=== PATIENT | female | born 1940 | race Caucasian/White ===

== ENCOUNTER → 2016-11-09 | Day surgery (SDC) | payer OTHER, BC ==
[~2016-11-09] VITALS: Ht 162.6 cm; Wt 75.0 kg
[~2016-11-09] MED LIST: ADVIN10050 INH; ALBUAER2 INH; AMOX500C3 PO; ANAS1TAB19 PO; ASPI81TA21 PO; B-COTAB81 PO; CEFAZOLIN 1000MG/55 ML D5W IV SCH; D5W AND 1/4NSS 1,000 ML IV SCH; DILT-119 PO; FENTANYL CITRATE INJ 50 MCG/1 ML 2 ML VIAL IV ONE; FENTANYL CITRATE INJ 50 MCG/1 ML 2 ML VIAL ONE; FSM70 PO; GLUC1TAB22 PO; GLUC1TAB33 PO; LANT1000 PO; LEVO75TA PO; LIDOCAINE HCL 1% 20 ML VIAL INJ ONE; MIDAZOLAM HCL 1 MG/ML 2ML VIAL ONE; MRLP17X PO; OPTIRAY 300 IV ONE; PRLSR20 PO; SERT25TA PO; SEVE800T7 PO; SIMV20TA2 PO; TYLOTC500 PO; occuvite PO
--- NOTE | 2016-11-09 07:55 | History and Physical ---
History & Physical Date of Service Nov 09, 2016. History & Physical CC: Chronic renal failure, malfunctioning lue avf HPI: Patient has had a left upper arm fistula placed. It ran poorly. Admitted now for fistulogram possible intervention. PATIENT'S ALLERGIES INCLUDE TORADOL. Patient's home medications are reconciled in the chart and include the following ; aspirin 325 mg, Centrum Silver, diltiazem, ferrous sulfate, Fosamax, glucosamine, levothyroxine, MS Contin, omeprazole, oxybutynin, Pred Forte, PreserVision, Procrit, Renvela, sertraline, Tylenol, and Zocor. Patient's past medical history is positive for breast cancer, chronic depression , gastroesophageal reflux disease, hip pain with multiple left hip surgeries, including hip replacement, hypertension, hyperlipidemia, and thyroid disease. Patient's past surgical history is positive for hip replacement on the left side , as well as revision of that procedure and a left breast lumpectomy, partial colon resection. Patient's family history is positive for breast cancer in her sister, colon cancer in her father, and hypertension in her mother. Her social history is negative for tobacco, alcohol or drug use. Her review of systems is negative for fatigue, fevers, sweats, weight loss or exercise intolerance, abnormal moles or rashes. Denies photophobia, ear pain, sinus problems or sore throats, cough, shortness of breath, hemoptysis or wheezing, chest pain, palpitations, edema, or syncope, abdominal pain, nausea, vomiting, diarrhea or constipation, back pain or muscle weakness, headaches, dizziness, numbness or seizures. On physical exam, patient's vital signs today are as follows; a blood pressure of 118/68 with a heart rate of 60 and a respiratory rate of 16. Patient weighs 153 pounds. Constitutional: In general, patient is a mostly healthy-appearing, well-nourished, well-developed elderly female in no acute distress. Patient ambulates well without assistance. She is active, alert and oriented x4 with normal memory. Her head is normocephalic and atraumatic. Her eyes are EOMI. Her ENT exam demonstrates no hearing loss, rhinorrhea, or pharyngeal erythema. Her neck is supple, nontender, with midline trachea, without masses or crepitus. Her lung exam demonstrates no dyspnea. Breath sounds are slightly decreased throughout, however, they are clear to auscultation bilaterally. Cardiovascular exam demonstrates a nondisplaced apical impulse with a regular rate and rhythm without murmurs, rubs or gallops. Her peripheral pulses are full and equal in all extremities. Specifically, they are normal in her carotid , brachial, radial, femoral, posterior tibial, and dorsalis pedis pulses. Patient demonstrates no bruits in her carotid, abdominal or femoral area. Her abdomen is soft and nontender with normoactive bowel sounds in all 4 quadrants without guarding or rebound. There is no CVA or flank tenderness. Her musculoskeletal exam demonstrates normal tone and strength for age. Her bilateral upper extremities demonstrate no cyanosis, edema, varicosities or ulcers. There is a thrill and bruit in the debora fistula. Current bilateral lower extremities demonstrate minimal varicosities, but no significant edema, cyanosis or ulcers. Neurologically, patient has normal gait and station with briskly intact cranial nerves and grossly intact sensation. Imp: End stage renal disease Malfunctioning avf Plan: Patient is admitted for a fistulogram with possible intervention. She understands the risks options and benefits and agrees to the procedure.
[2016-11-09 12:46] VITALS: BP 116/59; PULSE 56; TEMP 36.7; O2SAT 96; Ht 162.6 cm; Wt 75.0 kg
--- NOTE | 2016-11-09 12:54 | History & Physical Bridge Note ---
H&P Re-Evaluation Bridge Note: I have examined the patient, reviewed the History & Physical and in the interval since the performance of the History & Physical I have noted the following changes of clinical significance: No changes noted
--- NOTE | 2016-11-09 12:54 | Procedure Note ---
Pre-Mod Sedation Assessment General Date of Moderate Sedation: Nov 09, 2016. Pre-Sedation Airway Assessment Smoking Status: Never Smoker Mallampati Classification: Class I ASA Classification: Class II Notes The planned sedation has been discussed with the patient and consent obtained. I have identified the patient, determined the appropriateness of sedation and have assessed the patient immediately prior to the procedure. All medicine(s) and interventions are by my order.
[2016-11-09 13:51] VITALS: BP 116/59; PULSE 56; TEMP 36.7; O2SAT 96
--- NOTE | 2016-11-09 14:50 | [facility] Post Operative Brief Note ---
Immediate Operative Summary Operative Date Nov 09, 2016. Pre-Operative Diagnosis malfunctioning fistula Post-Operative Diagnosis same Procedure(s) Performed Left Upper Extremity Fistulogram, Percutaneous Transluminal Angioplasty and Stenting Of Venous, Peripheral Surgeon Dr. Shannon Deer Farmer Surgeon(s) Dr. Jeffery Estimated Blood Loss 5 ml Findings no residual stenosis Specimens none Anesthesia Local Complication(s) None Disposition
--- NOTE | 2016-11-09 14:52 | Discharge Instructions ---
Discharge Instructions Date of Service Nov 09, 2016. Visit Reason for Visit: End Stage Renal Disease -On Hemodialysis Discharge Discharge Diagnosis / Problem: Malfunctioning arteriovenous fistula Discharge Goals Goal(s): Diagnostic testing, Therapeutic intervention Activity Recommendations Activity Limitations: per Instructions/Follow-up section Anesthesia . Post Anesthesia Instructions: If you have had General Anesthesia or IV Sedation: * Do not drive today. * Resume driving when surgeon permits. * Do not make important decisions or sign legal documents today. * Call surgeon for: 1. Temperature elevations greater than 101 degrees F. 2. Uncontrollable pain. 3. Excessive bleeding. 4. Persistent nausea and vomiting. 5. Medication intolerance (nausea, vomiting or rash). * For nausea and vomiting use only clear liquids such as: tea, soda, bouillon until nausea subsides, then gradually increase diet as tolerated. * If you have any concerns or questions, call your surgeon's office. If physician is unavailable and it is an emergency, call 911 or go to the nearest emergency room. . Instructions / Follow-Up Instructions / Follow-Up Call [phone] with any questions or concerns. SPECIAL CARE INSTRUCTIONS: Medications: * Continue to take your medications as directed. If you have been given a prescription for Plavix, please fill it immediately and take as directed. Incision Care: * Your puncture site may have some bruising and minor swelling for about one week. * You will have a small dressing covering your puncture site. You may remove the dressing after 24 hours and shower. You may let the warm soapy water run over it, but be sure to dry the puncture site well and keep it dry. * DO NOT IMMERSE THE INCISION IN A TUB/POOL/etc. UNTIL HEALED. * Puncture sites should be kept covered with a band-aid until it begins to heal. Restrictions: * Depending on whether you leg or arm was punctured to access the arteries, you will be required to lay flat, hold your arm still, or both, for about 4 hours after the procedure to prevent bleeding. * Limit your activity for the first 48 hours. You may walk and go up and down steps. Avoid excessive bending or movement at the puncture site. Possible Complications: * Excessive Swelling - after blood flow is improved you may notice increased swelling in the lower legs. This is a normal response. This usually depends on the amount of blockages in the leg, how long they have been there prior to your procedure and how much blood flow was restored. Elevating your legs will help to improve this. Please notify our office ([phone] ) if the swelling does not go away after lying in bed overnight. * Infection/Drainage/Bleeding - Drainage or bleeding from the puncture site should be minimal. If you have excessive bleeding or drainage, call our office ([phone]) right away. * Pain - You may experience some mild pain or soreness at your puncture site. If your pain does not improve, please contact our office ([phone]). Call your doctor and seek emergent treatment if you develop: * Temperature above 101 degrees * Any fever or chills * Any redness or purulent drainage from the puncture site * Any new dusky/blue colored toes or feet with coolness or sharp or aching pain. SKIN IRRITATION: * You may experience some redness and/or swelling in the area where radiation was administered. If any skin irritation occurs, please contact your family physician. FOLLOW UP VISIT: Keep any scheduled doctor appointments. Diet Recommendations Recommended Home Diet: resume previous diet Procedures Procedures Performed: Left Upper Extremity Fistulogram, Percutaneous Transluminal Angioplasty and Stenting Of Venous, Peripheral Pending Studies Studies pending at discharge: no Medical Emergencies . Who to Call and When: Medical Emergencies: If at any time you feel your situation is an emergency, please call 911 immediately. . Non-Emergent Contact Non-Emergency issues call your: Surgeon . . "Provider Documentation" section prepared by Dejan Shannon.
[2016-11-09 15:05] VITALS: BP 141/59; PULSE 52; TEMP 36.7; O2SAT 96
[2016-11-09 15:35] VITALS: BP 101/53; PULSE 50; TEMP 36.7; O2SAT 96
--- NOTE | 2016-11-09 15:41 | DIAGNOSTIC IMAGING REPORT ---
DATE OF PROCEDURE: 11/09/2016 PREOPERATIVE DIAGNOSIS: Malfunctioning left upper extremity arteriovenous graft. POSTOPERATIVE DIAGNOSIS: Same. PROCEDURES PERFORMED: 1. Left upper extremity fistulogram. 2. Left peripheral venous percutaneous transluminal angioplasty and stent placement. SURGEON: Dejan Shannon MD CRISIS COUNSELOR: Feliberto Jeffery MD ANESTHESIA: Local plus conscious sedation. ESTIMATED BLOOD LOSS: 3 mL. COMPLICATIONS: None. INDICATIONS FOR PROCEDURE: This is a 75-year-old female with arteriovenous graft in her left arm. She has undergone a previous angioplasty and stenting of the mid portion of her outflow vein. She was having increasing difficulty and low flow rates at her dialysis unit. Fistulogram and possible intervention was indicated for dialysis access maintenance. Risks, benefits, and alternatives were explained to the patient and she agreed to proceed. DESCRIPTION OF PROCEDURE: The patient was brought to the endovascular suite and placed in the supine position. The left upper extremity was prepped and draped in normal sterile fashion. Time out was performed and all parties agreed to correct patient and procedure to be performed. The AV graft was accessed just distal to the anastomosis on the first attempt with a micropuncture needle. This was upsized over a wire to a micropuncture sheath. Diagnostic angiography showed [id number] luminal narrowing of the vein outflow several centimeters past the anastomosis. In addition, there was a high grade stenosis of the previously placed stents. The central venous system was patent with no hemodynamically significant stenosis. Now we elected to treat both of these lesions. The sheath was upsized over a Glidewire to a 6-Malay sheath. The wire was passed the lesions. A high pressure 8 mm balloon was brought onto the field. The in-stent restenosis was aggressively angioplastied multiple times. In addition, the second lesion more proximally was also angioplastied. On completion, angiography showed significant residual stenosis particularly in the stented portion of the vein outflow. For this reason, we elected to place a second stent. An 8 mm stent was brought onto the field and deployed across the previous stents. The length was 60 mm. Post-dilation was undertaken with an 8 mm balloon. Angiography at the completion of this showed a widely patent outflow vein. There was good resolution of the stenosis and we were happy with the result. There was a much better thrill in the fistula at the completion of this. All the sheaths, wires and catheters were removed and pressure was held on the access site. Hemostasis was achieved. The patient was transferred to recovery room in satisfactory condition with no apparent complications. I, Dr. Shannon was present and scurbbed for the entire procedure. DOLORES
== END | disposition home or self-care (01) ==
LOC: C.ACU 12:17
PROVIDERS: ATTEND Surgery Vascular Surgery
DX: T82.858A Stenosis of other vascular prosthetic devices, implants and grafts, initial encounter (principal); Y84.8 Other medical procedures as the cause of abnormal reaction of the patient, or of later complication, without mention of misadventure at the time of the procedure; K21.9 Gastro-esophageal reflux disease without esophagitis; I10 Essential (primary) hypertension; E78.5 Hyperlipidemia, unspecified; E07.9 Disorder of thyroid, unspecified; F32.9 Major depressive disorder, single episode, unspecified; Z98.890 Other specified postprocedural states; Z88.8 Allergy status to other drugs, medicaments and biological substances

== ENCOUNTER → 2017-01-11 | Day surgery (SDC) | payer OTHER, BC ==
[~2017-01-11] VITALS: Ht 162.6 cm; Wt 75.0 kg
[~2017-01-11] MED LIST changes: +ATROPINE SULFATE 0.1 MG/ML 10 ML SYR ONE; -D5W AND 1/4NSS 1,000 ML IV SCH; +D5W AND 1/4NSS 1000 ML IV SCH; +HEPARIN SOD (PORCINE) 5000 UNIT/ML 1 ML VIAL ONE; -LIDOCAINE HCL 1% 20 ML VIAL INJ ONE; +LIDOCAINE HCL 1% 20 ML VIAL SQ ONE; +MIDAZOLAM HCL 1 MG/ML 2ML VIAL IV ONE; +ORM MISCELLANEOUS MED XX ONE; +PATIENT'S HEIGHT AND/OR WEIGHT NEEDED SCH
--- NOTE | 2017-01-11 08:40 | History and Physical ---
History & Physical Date of Service January 11, 2017. History & Physical History & Physical CC: Chronic renal failure, thrombosed lue avf HPI: Patient has had a left upper arm fistula placed. It was running well until yesterday when it clotted at dialysis. Admitted now for mechanical thrombectomy with possible intervention. PATIENT'S ALLERGIES INCLUDE TORADOL. Patient's home medications are reconciled in the chart and include the following ; aspirin 325 mg, Centrum Silver, diltiazem, ferrous sulfate, Fosamax, glucosamine, levothyroxine, MS Contin, omeprazole, oxybutynin, Pred Forte, PreserVision, Procrit, Renvela, sertraline, Tylenol, and Zocor. Patient's past medical history is positive for breast cancer, chronic depression , gastroesophageal reflux disease, hip pain with multiple left hip surgeries, including hip replacement, hypertension, hyperlipidemia, and thyroid disease. Patient's past surgical history is positive for hip replacement on the left side , as well as revision of that procedure and a left breast lumpectomy, partial colon resection. Patient's family history is positive for breast cancer in her sister, colon cancer in her father, and hypertension in her mother. Her social history is negative for tobacco, alcohol or drug use. Her review of systems is negative for fatigue, fevers, sweats, weight loss or exercise intolerance, abnormal moles or rashes. Denies photophobia, ear pain, sinus problems or sore throats, cough, shortness of breath, hemoptysis or wheezing, chest pain, palpitations, edema, or syncope, abdominal pain, nausea, vomiting, diarrhea or constipation, back pain or muscle weakness, headaches, dizziness, numbness or seizures. On physical exam, patient's vital signs today are as follows; a blood pressure of 118/68 with a heart rate of 60 and a respiratory rate of 16. Patient weighs 153 pounds. Constitutional: In general, patient is a mostly healthy-appearing, well-nourished, well-developed elderly female in no acute distress. Patient ambulates well without assistance. She is active, alert and oriented x4 with normal memory. Her head is normocephalic and atraumatic. Her eyes are EOMI. Her ENT exam demonstrates no hearing loss, rhinorrhea, or pharyngeal erythema. Her neck is supple, nontender, with midline trachea, without masses or crepitus. Her lung exam demonstrates no dyspnea. Breath sounds are slightly decreased throughout, however, they are clear to auscultation bilaterally. Cardiovascular exam demonstrates a nondisplaced apical impulse with a regular rate and rhythm without murmurs, rubs or gallops. Her peripheral pulses are full and equal in all extremities. Specifically, they are normal in her carotid , brachial, radial, femoral, posterior tibial, and dorsalis pedis pulses. Patient demonstrates no bruits in her carotid, abdominal or femoral area. Her abdomen is soft and nontender with normoactive bowel sounds in all 4 quadrants without guarding or rebound. There is no CVA or flank tenderness. Her musculoskeletal exam demonstrates normal tone and strength for age. Her bilateral upper extremities demonstrate no cyanosis, edema, varicosities or ulcers. There is no thrill or bruit in the debora fistula. Current bilateral lower extremities demonstrate minimal varicosities, but no significant edema, cyanosis or ulcers. Neurologically, patient has normal gait and station with briskly intact cranial nerves and grossly intact sensation. Imp: End stage renal disease Malfunctioning avf Plan: Patient is admitted for a mechanical thrombectomy with possible intervention. She understands the risks options and benefits and agrees to the procedure.
[2017-01-11 10:20] VITALS: BP 157/75; PULSE 67; TEMP 36.7; O2SAT 96; Ht 162.6 cm; Wt 75.0 kg
--- NOTE | 2017-01-11 12:45 | Procedure Note ---
Pre-Mod Sedation Assessment General Date of Moderate Sedation: January 11, 2017. Vital Signs: Vital Signs Past 12 Hours Date Time Temp Pulse Resp B/P Pulse Ox O2 Delivery O2 Flow Rate FiO2 01/11/17 10:20 36.7 67 18 157/75 96 Room Air Pre-Sedation Airway Assessment Oral Cavity: Capped Teeth Short Thick Neck: No Hx of Sleep Apnea: No Smoking Status: Never Smoker Mallampati Classification: Class I ASA Classification: Class II Notes The planned sedation has been discussed with the patient and consent obtained. I have identified the patient, determined the appropriateness of sedation and have assessed the patient immediately prior to the procedure. All medicine(s) and interventions are by my order.
[2017-01-11 14:16] VITALS: BP 159/69; PULSE 47; O2SAT 95
--- NOTE | 2017-01-11 14:23 | [facility] Post Operative Brief Note ---
Immediate Operative Summary Operative Date January 11, 2017. Pre-Operative Diagnosis thrombosed arteriovenous fistula Post-Operative Diagnosis same Procedure(s) Performed Mechanical Thrombectomy of Arteriovenous Fistula, Percutaneous Transluminal Angioplasty and Stenting Peripheral Venous, Moderate Concious Sedation [address] Shannon Systems Spec Surgeon(s) none Estimated Blood Loss 20 ml Findings Good flow, no residual stenosis in fistula, no residual clot Specimens none Anesthesia Local with sedation Complication(s) None Disposition
--- NOTE | 2017-01-11 14:24 | Procedure Note ---
Post-Moderate Sedation Plan General Date of Moderate Sedation January 11, 2017. Vital Signs: Vital Signs Past 12 Hours Date Time Temp Pulse Resp B/P Pulse Ox O2 Delivery O2 Flow Rate FiO2 01/11/17 10:20 36.7 67 18 157/75 96 Room Air Review - Discharge Plan Post Moderate Sedation Plan: On clinical assessment, the patient appears to have tolerated the conscious sedation without complications. Patient is recovering as anticipated. Patient will continue to be monitored by nursing and may be discharged when conscious sedation discharge criteria are met.
[2017-01-11 14:30] VITALS: BP 164/74; PULSE 54; TEMP 36.6; O2SAT 96
--- NOTE | 2017-01-11 14:35 | Discharge Instructions ---
Discharge Instructions Date of Service January 11, 2017. Visit Reason for Visit: Thrombosed Fistula Left Arm Discharge Discharge Diagnosis / Problem: Thrombosed left upper arm fistula Discharge Goals Goal(s): Therapeutic intervention Activity Recommendations Activity Limitations: per Instructions/Follow-up section Anesthesia . Post Anesthesia Instructions: If you have had General Anesthesia or IV Sedation: * Do not drive today. * Resume driving when surgeon permits. * Do not make important decisions or sign legal documents today. * Call surgeon for: 1. Temperature elevations greater than 101 degrees F. 2. Uncontrollable pain. 3. Excessive bleeding. 4. Persistent nausea and vomiting. 5. Medication intolerance (nausea, vomiting or rash). * For nausea and vomiting use only clear liquids such as: tea, soda, bouillon until nausea subsides, then gradually increase diet as tolerated. * If you have any concerns or questions, call your surgeon's office. If physician is unavailable and it is an emergency, call 911 or go to the nearest emergency room. . Instructions / Follow-Up Instructions / Follow-Up Call [phone] with any questions or concerns. SPECIAL CARE INSTRUCTIONS: Medications: * Continue to take your medications as directed. If you have been given a prescription for Plavix, please fill it immediately and take as directed. Incision Care: * Your puncture site may have some bruising and minor swelling for about one week. * You will have a small dressing covering your puncture site. You may remove the dressing after 24 hours and shower. You may let the warm soapy water run over it, but be sure to dry the puncture site well and keep it dry. * DO NOT IMMERSE THE INCISION IN A TUB/POOL/etc. UNTIL HEALED. * Puncture sites should be kept covered with a band-aid until it begins to heal. Restrictions: * Depending on whether you leg or arm was punctured to access the arteries, you will be required to lay flat, hold your arm still, or both, for about 4 hours after the procedure to prevent bleeding. * Limit your activity for the first 48 hours. You may walk and go up and down steps. Avoid excessive bending or movement at the puncture site. Possible Complications: * Excessive Swelling - after blood flow is improved you may notice increased swelling in the lower legs. This is a normal response. This usually depends on the amount of blockages in the leg, how long they have been there prior to your procedure and how much blood flow was restored. Elevating your legs will help to improve this. Please notify our office ([phone] ) if the swelling does not go away after lying in bed overnight. * Infection/Drainage/Bleeding - Drainage or bleeding from the puncture site should be minimal. If you have excessive bleeding or drainage, call our office ([phone]) right away. * Pain - You may experience some mild pain or soreness at your puncture site. If your pain does not improve, please contact our office ([phone]). Call your doctor and seek emergent treatment if you develop: * Temperature above 101 degrees * Any fever or chills * Any redness or purulent drainage from the puncture site * Any new dusky/blue colored toes or feet with coolness or sharp or aching pain. SKIN IRRITATION: * You may experience some redness and/or swelling in the area where radiation was administered. If any skin irritation occurs, please contact your family physician. FOLLOW UP VISIT: Keep any scheduled doctor appointments. Diet Recommendations Recommended Home Diet: resume previous diet Procedures Procedures Performed: Mechanical Thrombectomy of Arteriovenous Fistula, Percutaneous Transluminal Angioplasty and Stenting Peripheral Venous, Moderate Concious Sedation 1320 to 1417 Pending Studies Studies pending at discharge: no Medical Emergencies . Who to Call and When: Medical Emergencies: If at any time you feel your situation is an emergency, please call 911 immediately. . Non-Emergent Contact Non-Emergency issues call your: Surgeon . . "Provider Documentation" section prepared by Dejan Shannon. .
--- NOTE | 2017-01-11 14:48 | DIAGNOSTIC IMAGING REPORT ---
DATE OF PROCEDURE: 01/11/2017 PREOPERATIVE DIAGNOSIS: Thrombus, left upper arm arteriovenous fistula. POSTOPERATIVE DIAGNOSIS: Same with venous stenosis. PROCEDURE: 1. Mechanical thrombectomy left upper arm AV fistula. 2. Balloon angioplasty and stenting of the peripheral venous site. 3. Conscious sedation 57 minutes. SURGEON: Dr. Shannon. ANESTHETIC: Local with moderate conscious sedation. PROCEDURE INDICATIONS: The patient is a 76-year-old female with a thrombosed AV fistula. Mechanical thrombectomy was recommended. She understood the risks, options and benefits, and agreed to have this procedure. The patient was taken to the angio suite and placed in supine position. After left arm was prepped and draped in a sterile manner, local anesthetic was administered. Percutaneous puncture was made of the fistula just distal to the arterial anastomosis and a 6-Grenadian sheath was inserted. A 0.035 wire was then passed through the occlusion. Fistulogram was performed. This showed reconstitution of the vein right at the end of the previously placed stents. The Proxi AngioJet catheter was then inserted. Mechanical thrombectomy was done of this portion of the fistula. Two passes were made. Fistulogram was then done which showed small residual clot in the distal end of the previously placed stent. The mechanical thrombectomy was then again done of this region. Good results were noted. Another retrograde puncture was made on the distal end of the fistula. A 6-Grenadian sheath was inserted. A 0.035 wire was then passed down through the arterial anastomosis where mechanical thrombectomy was done of the proximal portion of the fistula. Once 2 passes were done of this, we did a fistulogram which showed some mild irregularity of the proximal portion of the fistula. No clot was noted. Looking at the old stent that was placed, it appeared to be slightly bird beak, most likely from an angle that it took. We then brought an 8 x 4 Absolute stent and overlapped this area of the stent. The area looked much nicer with no bird beaking appearance. There was no need for angioplasty at that site. We then inserted a 5 x 4 balloon down to the arterial side and dilated up the proximal portion of the fistula. Fistulogram done at that point showed no irregularity. We did use a 7 x 6 balloon prior to placing the stent to smooth out the fistula and the old stents themselves. After we finished ballooning the arterial end, the fistulogram showed that the fistula was widely patent. There was no residual stenosis and good flow was seen through the fistula. No clot was noted in the fistula at that time. We, therefore, pulled the sheaths. Pressure was applied. Adequate hemostasis was obtained. Sterile dressings were applied to the wound and the patient left the angio suite in good condition and tolerated the procedure well. DOLORES
[2017-01-11 15:00] VITALS: BP 140/64; PULSE 44; TEMP 36.6; O2SAT 95
== END | disposition home or self-care (01) ==
LOC: C.ACU 09:56
PROVIDERS: ATTEND Surgery Vascular Surgery
DX: T82.868A Thrombosis due to vascular prosthetic devices, implants and grafts, initial encounter (principal); I12.0 Hypertensive chronic kidney disease with stage 5 chronic kidney disease or end stage renal disease; N18.6 End stage renal disease; E78.5 Hyperlipidemia, unspecified; E07.9 Disorder of thyroid, unspecified; K21.9 Gastro-esophageal reflux disease without esophagitis; F32.9 Major depressive disorder, single episode, unspecified; Z85.3 Personal history of malignant neoplasm of breast; Z79.82 Long term (current) use of aspirin; Z79.899 Other long term (current) drug therapy

== ENCOUNTER 2017-02-26 10:10 | Emergency (ER) | payer OTHER, BC ==
[~2017-02-26] VITALS: Ht 162.6 cm; Wt 79.8 kg
[~2017-02-26 10:10] MED LIST changes: -ANAS1TAB19 PO; -ATROPINE SULFATE 0.1 MG/ML 10 ML SYR ONE; -CEFAZOLIN 1000MG/55 ML D5W IV SCH; -D5W AND 1/4NSS 1000 ML IV SCH; -FENTANYL CITRATE INJ 50 MCG/1 ML 2 ML VIAL IV ONE; -FENTANYL CITRATE INJ 50 MCG/1 ML 2 ML VIAL ONE; -GLUC1TAB22 PO; -HEPARIN SOD (PORCINE) 5000 UNIT/ML 1 ML VIAL ONE; -LANT1000 PO; -LIDOCAINE HCL 1% 20 ML VIAL SQ ONE; -MIDAZOLAM HCL 1 MG/ML 2ML VIAL IV ONE; -MIDAZOLAM HCL 1 MG/ML 2ML VIAL ONE; -OPTIRAY 300 IV ONE; -ORM MISCELLANEOUS MED XX ONE; -PATIENT'S HEIGHT AND/OR WEIGHT NEEDED SCH
[2017-02-26 10:17] VITALS: Ht 162.6 cm; Wt 79.8 kg
[2017-02-26] MEDS ORDERED: XYLOCAINE 1%/SOD BICARB 20 ML VIAL INFIL ONE (11:30)
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
[2017-02-26] MEDS ORDERED: OXYCODONE HCL IR 5 MG TAB (IMMEDIATE RELEASE) PO STA (13:51)
--- NOTE | 2017-02-26 13:51 | EMERGENCY ROOM VISIT NOTE ---
ED Visit Note First contact with patient: 10:36 This Patient was discussed with the physician warehouse assistant, Sirisha Justice PA-C. The pertinent historical and physical exam findings were confirmed. I agree with the studies ordered and with the interpretations of these studies. I agree with the disposition and care plan.
[2017-02-26 13:58] VITALS: BP 93/65; PULSE 84; O2SAT 98
[2017-02-26] MEDS ORDERED: OXYCODONE IR HOME PACK PO ONE (14:00)
[2017-03-22] MEDS ORDERED: ANAS1TAB19 PO (15:10)
== END 2017-02-26 14:19 | disposition home or self-care (01) ==
LOC: EDBD 10:10 → C.EDC 10:11
DX: S01.81XA Laceration without foreign body of other part of head, initial encounter (principal); S60.221A Contusion of right hand, initial encounter; S80.01XA Contusion of right knee, initial encounter; S80.02XA Contusion of left knee, initial encounter; V44.5XXA Car driver injured in collision with heavy transport vehicle or bus in traffic accident, initial encounter; Y93.89 Activity, other specified; Y99.8 Other external cause status; Y92.410 Unspecified street and highway as the place of occurrence of the external cause; I12.9 Hypertensive chronic kidney disease with stage 1 through stage 4 chronic kidney disease, or unspecified chronic kidney disease; N18.4 Chronic kidney disease, stage 4 (severe); E78.00 Pure hypercholesterolemia, unspecified; E03.9 Hypothyroidism, unspecified; Z96.1 Presence of intraocular lens; Z85.3 Personal history of malignant neoplasm of breast; Z96.649 Presence of unspecified artificial hip joint; Z79.82 Long term (current) use of aspirin; Z79.899 Other long term (current) drug therapy

== ENCOUNTER 2017-03-05 13:50 | Emergency (ER) | payer OTHER ==
[~2017-03-05] VITALS: Ht 162.6 cm; Wt 70.3 kg
[~2017-03-05 13:50] MED LIST changes: -ALBUAER2 INH; -AMOX500C3 PO; -FSM70 PO
[2017-03-05 14:06] VITALS: TEMP 37; Ht 162.6 cm; Wt 70.3 kg
--- NOTE | 2017-03-05 14:26 | EMERGENCY ROOM VISIT NOTE ---
ED Visit Note First contact with patient: 14:17 CHIEF COMPLAINT: Suture removal This patient returns to the ED today for removal of sutures that were placed 7 days ago. There has been no swelling, redness, or drainage from the wound. The patient feels like the laceration is healing well. REVIEW OF SYSTEMS: Head: No headache, injury or neck pain. Skin: No rash, new lesions, or masses. General: No fever or chills, fatigue, loss of appetite , or significant recent weight gain or loss. PMH: Electronic medical records are reviewed and summarized as above/below. See Problem List. SOCIAL HISTORY: Patient lives at home. PHYSICAL EXAM: Vital Signs: Reviewed Nurse's notes. There is a sutured wound on the forehead with no signs of infection. There is no erythema, swelling, or tenderness. EMERGENCY DEPARTMENT COURSE: The sutures were removed without any difficulty and there was no separation of the wound edges. 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 Status post left partial mastectomy 07/08/2007 Status post completion of radiation therapy 11/25/2007 received 6120 cGy Status post 5 years of tamoxifen Status: Resolved (6) Hypercholesterolemia Status: Chronic (7) Hypothyroidism Status: Chronic (8) Iron deficiency Status: Chronic (9) LENS REPLACEMENT NEC Status: Resolved (10) Lobular carcinoma of right breast Permanent Comment: Abnormal right breast mammogram Status post biopsy 09/21/2016 revealing invasive lobular carcinoma grade 2 Estrogen receptor positive, progesterone receptor positive, and HER-2/sandro negative Status post lumpectomy and sentinel lymph node biopsy 10/24/2016 (Dr.. Keller -[facility] [place]) Stage pT1c pN0(i+) M0 Oncotype DX score of 22 BRCA analysis negative Status post completion of radiation therapy 02/20/2017 received 5130 cGy utilizing hypo-fractionation Status: Resolved (11) Secondary hyperparathyroidism Status: Chronic (12) Total replacement of hip Status: Resolved Current/Historical Medications Scheduled Aspirin Enteric Coated (Ecotrin Or Generic), 81 MG PO DAILY B-Complex W/ V-Futilq-Snhwibuy (Folbee Plus Cz), 5 MG PO DAILY Diltiazem Hcl Ext Rel (Tiazac), 360 MG PO DAILY Fluticasone Prop/Salmeterol (Advair Diskus 100-50 Mcg/Dose), 1 PUFF INH BID Glucosamine Hydrochloride (Glucosamine Hcl), 1 TAB PO DAILY Levothyroxine Sodium (Synthroid), 75 MCG PO DAILY Omeprazole (Prilosec), 20 MG PO DAILY Sertraline (Zoloft), 25 MG PO DAILY Sevelamer Carbonate (Renvela), 2 TABS PO TIDM Simvastatin (Zocor), 20 MG PO QPM [occuvite ], 2 TAB PO QAM Scheduled PRN Acetaminophen (Tylenol), 500 MG PO TID PRN for Pain Polyethylene (Miralax), 17 GM PO DAILY PRN for Constipation Allergies Coded Allergies: Ketorolac (Verified Allergy, Unknown, HIVES (HOWEVER PATIENT TAKES ASA AT HOME W/O RXN), 02/26/17) Vital Signs Date Time Temp Pulse Resp B/P (MAP) Pulse Ox O2 Delivery O2 Flow Rate FiO2 03/05/17 14:44 84 18 95 03/05/17 14:06 37.0 84 18 110/55 95 Room Air Departure Information Impression Primary Impression: Encounter for removal of sutures Referrals No Doctor, Assigned (PCP) Patient Instructions [facility]
[2017-03-05 14:44] VITALS: BP 110/55; PULSE 84; O2SAT 95
[2017-03-22] MEDS ORDERED: ANAS1TAB19 PO (15:10)
== END 2017-03-05 14:44 | disposition home or self-care (01) ==
LOC: C.EDB 13:53 → C.EDD 14:44
DX: S01.81XD Laceration without foreign body of other part of head, subsequent encounter (principal); X58.XXXD Exposure to other specified factors, subsequent encounter; D63.1 Anemia in chronic kidney disease; N18.4 Chronic kidney disease, stage 4 (severe); I12.9 Hypertensive chronic kidney disease with stage 1 through stage 4 chronic kidney disease, or unspecified chronic kidney disease; E78.00 Pure hypercholesterolemia, unspecified; E03.9 Hypothyroidism, unspecified; E61.1 Iron deficiency; N25.81 Secondary hyperparathyroidism of renal origin; Z85.3 Personal history of malignant neoplasm of breast; Z79.82 Long term (current) use of aspirin

== ENCOUNTER → 2017-03-22 | Outpatient (CLI) | payer OTHER, BC ==
[~2017-03-22] MED LIST changes: +ANAS1TAB19 PO
[2017-03-22 14:40] VITALS: BP 88/46; PULSE 64; TEMP 36.9; O2SAT 98
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
== END | disposition home or self-care (01) ==
LOC: C.ONC 13:59
PROVIDERS: ATTEND Physician Assistant Medical
DX: Z08 Encounter for follow-up examination after completed treatment for malignant neoplasm (principal); Z92.3 Personal history of irradiation; Z85.3 Personal history of malignant neoplasm of breast

== ENCOUNTER → 2017-10-02 | Day surgery (SDC) | payer OTHER, BC ==
[2017-09-18 14:04] VITALS: BMI 27.0
[~2017-10-02] VITALS: Ht 162.6 cm; Wt 72.7 kg
[~2017-10-02] MED LIST changes: +CEFAZOLIN 1000MG IV PUSH 5 ML IV SCH; +D5W AND 1/4NSS 1000 ML IV SCH; +FENTANYL CITRATE INJ 50 MCG/1 ML 2 ML VIAL IV ONE; +FENTANYL CITRATE INJ 50 MCG/1 ML 2 ML VIAL ONE; +LIDOCAINE HCL 1% 20 ML VIAL INJ ONE; +MIDAZOLAM HCL 1 MG/ML 2ML VIAL IV ONE; +MIDAZOLAM HCL 1 MG/ML 2ML VIAL ONE; +MULT-190 PO; +OPTIRAY 300 IV ONE; +SODIUM CHLORIDE 0.9% 1000ML 1,000 ML IV SCH; -occuvite PO
[2017-10-02 07:05] VITALS: BP 113/65; PULSE 76; TEMP 36.8; O2SAT 97; Ht 162.6 cm; Wt 72.7 kg
--- NOTE | 2017-10-02 07:38 | History and Physical ---
History & Physical Date of Service Oct 02, 2017. History & Physical CC: Chronic renal failure, malfunctioning lue avf HPI: Patient has had a left upper arm fistula placed. It ran poorly. Admitted now for fistulogram possible intervention. PATIENT'S ALLERGIES INCLUDE TORADOL. Patient's home medications are reconciled in the chart and include the following ; aspirin 325 mg, Centrum Silver, diltiazem, ferrous sulfate, Fosamax, glucosamine, levothyroxine, MS Contin, omeprazole, oxybutynin, Pred Forte, PreserVision, Procrit, Renvela, sertraline, Tylenol, and Zocor. Patient's past medical history is positive for breast cancer, chronic depression , gastroesophageal reflux disease, hip pain with multiple left hip surgeries, including hip replacement, hypertension, hyperlipidemia, and thyroid disease. Patient's past surgical history is positive for hip replacement on the left side , as well as revision of that procedure and a left breast lumpectomy, partial colon resection. Patient's family history is positive for breast cancer in her sister, colon cancer in her father, and hypertension in her mother. Her social history is negative for tobacco, alcohol or drug use. Her review of systems is negative for fatigue, fevers, sweats, weight loss or exercise intolerance, abnormal moles or rashes. Denies photophobia, ear pain, sinus problems or sore throats, cough, shortness of breath, hemoptysis or wheezing, chest pain, palpitations, edema, or syncope, abdominal pain, nausea, vomiting, diarrhea or constipation, back pain or muscle weakness, headaches, dizziness, numbness or seizures. On physical exam, patient's vital signs today are as follows; a blood pressure of 118/68 with a heart rate of 60 and a respiratory rate of 16. Patient weighs 153 pounds. Constitutional: In general, patient is a mostly healthy-appearing, well-nourished, well-developed elderly female in no acute distress. Patient ambulates well without assistance. She is active, alert and oriented x4 with normal memory. Her head is normocephalic and atraumatic. Her eyes are EOMI. Her ENT exam demonstrates no hearing loss, rhinorrhea, or pharyngeal erythema. Her neck is supple, nontender, with midline trachea, without masses or crepitus. Her lung exam demonstrates no dyspnea. Breath sounds are slightly decreased throughout, however, they are clear to auscultation bilaterally. Cardiovascular exam demonstrates a nondisplaced apical impulse with a regular rate and rhythm without murmurs, rubs or gallops. Her peripheral pulses are full and equal in all extremities. Specifically, they are normal in her carotid , brachial, radial, femoral, posterior tibial, and dorsalis pedis pulses. Patient demonstrates no bruits in her carotid, abdominal or femoral area. Her abdomen is soft and nontender with normoactive bowel sounds in all 4 quadrants without guarding or rebound. There is no CVA or flank tenderness. Her musculoskeletal exam demonstrates normal tone and strength for age. Her bilateral upper extremities demonstrate no cyanosis, edema, varicosities or ulcers. There is a thrill and bruit in the debora fistula. Current bilateral lower extremities demonstrate minimal varicosities, but no significant edema, cyanosis or ulcers. Neurologically, patient has normal gait and station with briskly intact cranial nerves and grossly intact sensation. Imp: End stage renal disease Malfunctioning avf left arm Plan: Patient is admitted for a fistulogram with possible intervention. She understands the risks options and benefits and agrees to the procedure.
--- NOTE | 2017-10-02 07:48 | Pre Sedation Assessment ---
Pre Sedation Assessment General Date of Sedation: Oct 02, 2017. 113/65 76 18 Review Cardiovascular: regular rate, rhythm Lungs: lungs clear Pre-Sedation Airway Assessment Smoking Status: Never Smoker Hx of Sleep Apnea: No Short Thick Neck: No Oral Cavity: Capped Teeth, WNL Mallampati Classification: Class I ASA Classification: Class III NPO Status Date of Last Intake of Fluids: Oct 01, 2017 Time of Last Intake of Fluids: 2100 Date of Last Intake of Solids: Oct 01, 2017 Time of Last Intake of Solids: 20:00 Notes The planned sedation has been discussed with the patient. Informed Consent was obtained. I have identified the patient, determined the appropriateness of sedation and have assessed the patient immediately prior to the procedure. All medicine(s) and interventions are by my order.
[2017-10-02 07:51] LABS: CALCIUM 9.3 mg/dl (8.5-10.1); CREATININE 6.34 mg/dl (0.60-1.20); POTASSIUM 4.1 mmol/L (3.5-5.1)
--- NOTE | 2017-10-02 07:51 | Pre Sedation Assessment ---
Pre Sedation Assessment General Date of Sedation: Oct 02, 2017. Vital Signs Past 12 Hours Date Time Temp Pulse Resp B/P (MAP) Pulse Ox O2 Delivery O2 Flow Rate FiO2 10/02/17 07:05 36.8 76 18 113/65 (81) 97 Room Air Review Cardiovascular: regular rate, rhythm Lungs: lungs clear Pre-Sedation Airway Assessment Smoking Status: Never Smoker Hx of Sleep Apnea: No Short Thick Neck: No Oral Cavity: Capped Teeth, WNL Mallampati Classification: Class I ASA Classification: Class III NPO Status Date of Last Intake of Fluids: Oct 01, 2017 Time of Last Intake of Fluids: 2100 Date of Last Intake of Solids: Oct 01, 2017 Time of Last Intake of Solids: 20:00 Notes The planned sedation has been discussed with the patient. Informed Consent was obtained. I have identified the patient, determined the appropriateness of sedation and have assessed the patient immediately prior to the procedure. All medicine(s) and interventions are by my order.
--- NOTE | 2017-10-02 08:29 | [facility] Post Operative Brief Note ---
Immediate Operative Summary Operative Date Oct 02, 2017. Pre-Operative Diagnosis Malfunctioning Fistula Post-Operative Diagnosis Malfunctioning Fistula, venous stenosis Procedure(s) Performed Fistulogram Percutaneous Transluminal Angioplasty Venous Moderate Sedation [id number] Surgeon Shiva Aluminum Can Collector Surgeon(s) None Estimated Blood Loss 10 Findings Consistent with Post-Op Diagnosis Specimens None Drains None Anesthesia Type IV Sedat Cons RN Only Complication(s) none Disposition Accompanied Pt To Recover: no Disposition:
--- NOTE | 2017-10-02 08:37 | Discharge Instructions ---
Discharge Instructions Date of Service Oct 02, 2017. Visit Reason for Visit: End Stage Renal Disease, Malfunctioning Fistula Discharge Discharge Diagnosis / Problem: venous stenosis Discharge Goals Goal(s): Therapeutic intervention Activity Recommendations Activity Limitations: per Instructions/Follow-up section Anesthesia . Post Anesthesia Instructions: If you have had General Anesthesia or IV Sedation: * Do not drive today. * Resume driving when surgeon permits. * Do not make important decisions or sign legal documents today. * Call surgeon for: 1. Temperature elevations greater than 101 degrees F. 2. Uncontrollable pain. 3. Excessive bleeding. 4. Persistent nausea and vomiting. 5. Medication intolerance (nausea, vomiting or rash). * For nausea and vomiting use only clear liquids such as: tea, soda, bouillon until nausea subsides, then gradually increase diet as tolerated. * If you have any concerns or questions, call your surgeon's office. If physician is unavailable and it is an emergency, call 911 or go to the nearest emergency room. . Instructions / Follow-Up Instructions / Follow-Up Call [phone] with any questions or concerns. SPECIAL CARE INSTRUCTIONS: Medications: * Continue to take your medications as directed. If you have been given a prescription for Plavix, please fill it immediately and take as directed. Incision Care: * Your puncture site may have some bruising and minor swelling for about one week. * You will have a small dressing covering your puncture site. You may remove the dressing after 24 hours and shower. You may let the warm soapy water run over it, but be sure to dry the puncture site well and keep it dry. * DO NOT IMMERSE THE INCISION IN A TUB/POOL/etc. UNTIL HEALED. * Puncture sites should be kept covered with a band-aid until it begins to heal. Restrictions: * Depending on whether you leg or arm was punctured to access the arteries, you will be required to lay flat, hold your arm still, or both, for about 4 hours after the procedure to prevent bleeding. * Limit your activity for the first 48 hours. You may walk and go up and down steps. Avoid excessive bending or movement at the puncture site. Possible Complications: * Excessive Swelling - after blood flow is improved you may notice increased swelling in the lower legs. This is a normal response. This usually depends on the amount of blockages in the leg, how long they have been there prior to your procedure and how much blood flow was restored. Elevating your legs will help to improve this. Please notify our office ([phone] ) if the swelling does not go away after lying in bed overnight. * Infection/Drainage/Bleeding - Drainage or bleeding from the puncture site should be minimal. If you have excessive bleeding or drainage, call our office ([phone]) right away. * Pain - You may experience some mild pain or soreness at your puncture site. If your pain does not improve, please contact our office ([phone]). Call your doctor and seek emergent treatment if you develop: * Temperature above 101 degrees * Any fever or chills * Any redness or purulent drainage from the puncture site * Any new dusky/blue colored toes or feet with coolness or sharp or aching pain. SKIN IRRITATION: * You may experience some redness and/or swelling in the area where radiation was administered. If any skin irritation occurs, please contact your family physician. FOLLOW UP VISIT: Keep any scheduled doctor appointments. Diet Recommendations Recommended Home Diet: resume previous diet Procedures Procedures Performed: Fistulogram Percutaneous Transluminal Angioplasty Venous Moderate Sedation [id number] Pending Studies Studies pending at discharge: no Medical Emergencies . Who to Call and When: Medical Emergencies: If at any time you feel your situation is an emergency, please call 911 immediately. . Non-Emergent Contact Non-Emergency issues call your: Surgeon . . "Provider Documentation" section prepared by Dejan Shannon. .
[2017-10-02 08:45] VITALS: BP 109/59; PULSE 72; TEMP 36.8; O2SAT 97
--- NOTE | 2017-10-02 08:50 | Post Sedation Assessment ---
Post Sedation Assessment General Date of Sedation Oct 02, 2017. Vital Signs: Vital Signs Past 12 Hours Date Time Temp Pulse Resp B/P (MAP) Pulse Ox O2 Delivery O2 Flow Rate FiO2 10/02/17 08:40 70 16 105/59 96 Room Air 10/02/17 08:35 71 16 99/60 97 Room Air 10/02/17 08:30 70 16 102/57 95 Room Air 10/02/17 08:25 69 16 117/64 100 Mask 4 10/02/17 08:20 72 16 140/72 100 Mask 4 10/02/17 08:15 72 16 141/75 99 Mask 4 10/02/17 08:10 72 16 158/77 99 Mask 4 10/02/17 07:05 36.8 76 18 113/65 (81) 97 Room Air Post Procedure Recovery Score Activity: (2) Moves 4 extremities * Respiration: (2) Deep breath/cough Circulation: (1) +/-20-49% PreAnes Ksenia Consciousness: (2) Fully Awake Oxygen Saturation: (2) > 92% On Room Air Post Anesthesia Score: 9 Discharge Sedation Level of Care: Fast Track Phase II Post Sedation Plan On clinical assessment, the patient appears to have tolerated the sedation without complications. Patient is recovering as anticipated. Patient will continue to be monitored by nursing and may be discharged when sedation discharge criteria are met per below protocol. Upon Completions of procedure and additional 15 minutes continue every 5 minute vital signs and the P.A.R. score; then discharge to a Phase I or Fast Track to Phase II per the following guidelines: * Discharge Patient to appropriate Phase II area if PAR is 8 or greater or return to pre- procedure baseline. The post - procedure orders will be as directed. * If PAR score is less than 8 or not return to pre-procedure baseline then patient will follow Phase I monitoring till PAR is reached for Phase II. The Phase I may be done in procedure room or may call to secure a Phase I area. * If naloxone or flumazenil are used for reversal, hold in Phase I for an additional 60 -120 minutes before discharge to Phase II. Please call the Sedation Physician to re-evaluate and complete post-note for discharge to Phase II area. Do NOT discharge from procedure sedation or Phase 1 until post- sedation evaluation note is complete by procedure /sedation MD Sedation Discharge Instructions to be given to the patient at discharge to home.
--- NOTE | 2017-10-02 09:01 | DIAGNOSTIC IMAGING REPORT ---
DATE OF PROCEDURE: 10/02/2017 PREOPERATIVE DIAGNOSIS: Malfunctioning fistula. POSTOPERATIVE DIAGNOSIS: Malfunctioning fistula with venous stenosis. PROCEDURE: Fistulogram, percutaneous balloon angioplasty of peripheral venous and moderate sedation in 5 minutes. SURGEON: Dejan Shannon MD. ANESTHETIC: Local with sedation. DESCRIPTION OF PROCEDURE: The patient is a 76-year-old female with difficulty with dialysis. She is setting off the alarms and having poor runs. Fistulogram with possible intervention was recommended. She understood the risks, options and benefits and agreed to go ahead with this procedure. The patient was taken to the angiogram suite and placed in supine position. After the left arm was prepped and draped in a sterile manner, local anesthetic was administered. Percutaneous puncture was made of the left arm fistula using micropuncture technique. Once the micropuncture sheath was inserted, a fistulogram was performed. This showed good arterial anastomosis which was widely patent. There was a severe stenosis in the mid portion of the fistula in the left upper arm. The outflow track in the previous placed stents were widely patent with no stenosis seen. It was decided to balloon this area. The micropuncture sheath was exchanged over a wire to a 6-Scottish sheath. An 0.035 wire was then passed through the lesion without too much difficulty. A 7 x 6 balloon was then used to dilate this area. Post-dilatation, there was no residual stenosis seen. It was widely patent with now a good palpable thrill. The sheath was then pulled, pressure was applied. Adequate hemostasis was obtained. Sterile dressings were applied to the wound. The patient left the angio suite in good condition and tolerated the procedure well.
[2017-10-02 09:13] VITALS: BP 99/52; PULSE 80; O2SAT 96
[2017-10-02 09:45] VITALS: BP 106/58; PULSE 59; TEMP 36.6; O2SAT 98
== END | disposition home or self-care (01) ==
LOC: C.ACU 06:24
PROVIDERS: ATTEND Surgery Vascular Surgery
DX: T82.898A Other specified complication of vascular prosthetic devices, implants and grafts, initial encounter (principal); Y83.2 Surgical operation with anastomosis, bypass or graft as the cause of abnormal reaction of the patient, or of later complication, without mention of misadventure at the time of the procedure; I12.0 Hypertensive chronic kidney disease with stage 5 chronic kidney disease or end stage renal disease; N18.6 End stage renal disease; E78.5 Hyperlipidemia, unspecified; F32.9 Major depressive disorder, single episode, unspecified; K21.9 Gastro-esophageal reflux disease without esophagitis; Z85.3 Personal history of malignant neoplasm of breast; Z79.82 Long term (current) use of aspirin; Z96.649 Presence of unspecified artificial hip joint; Z80.0 Family history of malignant neoplasm of digestive organs; Z80.3 Family history of malignant neoplasm of breast; Z82.49 Family history of ischemic heart disease and other diseases of the circulatory system

== ENCOUNTER → 2018-04-18 | Day surgery (SDC) | payer OTHER, BC ==
[~2018-04-18] VITALS: Ht 162.6 cm; Wt 72.7 kg
[~2018-04-18] MED LIST changes: -ADVIN10050 INH; -ANAS1TAB19 PO; +ANAS1TAB59 PO; +ASPI-319 PO; -ASPI81TA21 PO; -CEFAZOLIN 1000MG IV PUSH 5 ML IV SCH; +CEFAZOLIN 1000MG IV PUSH 7.5 ML IV SCH; +D5W AND 1/4NSS 1,000 ML IV SCH; -D5W AND 1/4NSS 1000 ML IV SCH; +LDDP5 TD; -SODIUM CHLORIDE 0.9% 1000ML 1,000 ML IV SCH
--- NOTE | 2018-04-18 10:33 | History and Physical ---
History & Physical Date of Service Apr 18, 2018. History & Physical CC: Chronic renal failure, malfunctioning lue avf HPI: Patient has had a left upper arm fistula placed. It ran poorly. Admitted now for fistulogram possible intervention. PATIENT'S ALLERGIES INCLUDE TORADOL. Patient's home medications are reconciled in the chart and include the following ; aspirin 325 mg, Centrum Silver, diltiazem, ferrous sulfate, Fosamax, glucosamine, levothyroxine, MS Contin, omeprazole, oxybutynin, Pred Forte, PreserVision, Procrit, Renvela, sertraline, Tylenol, and Zocor. Patient's past medical history is positive for breast cancer, chronic depression , gastroesophageal reflux disease, hip pain with multiple left hip surgeries, including hip replacement, hypertension, hyperlipidemia, and thyroid disease. Patient's past surgical history is positive for hip replacement on the left side , as well as revision of that procedure and a left breast lumpectomy, partial colon resection. Patient's family history is positive for breast cancer in her sister, colon cancer in her father, and hypertension in her mother. Her social history is negative for tobacco, alcohol or drug use. Her review of systems is negative for fatigue, fevers, sweats, weight loss or exercise intolerance, abnormal moles or rashes. Denies photophobia, ear pain, sinus problems or sore throats, cough, shortness of breath, hemoptysis or wheezing, chest pain, palpitations, edema, or syncope, abdominal pain, nausea, vomiting, diarrhea or constipation, back pain or muscle weakness, headaches, dizziness, numbness or seizures. On physical exam, patient's vital signs today are as follows; a blood pressure of 118/68 with a heart rate of 60 and a respiratory rate of 16. Patient weighs 153 pounds. Constitutional: In general, patient is a mostly healthy-appearing, well-nourished, well-developed elderly female in no acute distress. Patient ambulates well without assistance. She is active, alert and oriented x4 with normal memory. Her head is normocephalic and atraumatic. Her eyes are EOMI. Her ENT exam demonstrates no hearing loss, rhinorrhea, or pharyngeal erythema. Her neck is supple, nontender, with midline trachea, without masses or crepitus. Her lung exam demonstrates no dyspnea. Breath sounds are slightly decreased throughout, however, they are clear to auscultation bilaterally. Cardiovascular exam demonstrates a nondisplaced apical impulse with a regular rate and rhythm without murmurs, rubs or gallops. Her peripheral pulses are full and equal in all extremities. Specifically, they are normal in her carotid , brachial, radial, femoral, posterior tibial, and dorsalis pedis pulses. Patient demonstrates no bruits in her carotid, abdominal or femoral area. Her abdomen is soft and nontender with normoactive bowel sounds in all 4 quadrants without guarding or rebound. There is no CVA or flank tenderness. Her musculoskeletal exam demonstrates normal tone and strength for age. Her bilateral upper extremities demonstrate no cyanosis, edema, varicosities or ulcers. There is a thrill and bruit in the debora fistula. Current bilateral lower extremities demonstrate minimal varicosities, but no significant edema, cyanosis or ulcers. Neurologically, patient has normal gait and station with briskly intact cranial nerves and grossly intact sensation. Imp: End stage renal disease Malfunctioning avf left arm Plan: Patient is admitted for a fistulogram with possible intervention. She understands the risks options and benefits and agrees to the procedure.
[2018-04-18 11:04] VITALS: BP 111/74; PULSE 68; TEMP 36.8; O2SAT 94; Ht 162.6 cm; Wt 72.7 kg
--- NOTE | 2018-04-18 13:23 | Pre Sedation Assessment ---
Pre Sedation Assessment General Date of Sedation: Apr 18, 2018. Vital Signs Past 12 Hours Date Time Temp Pulse Resp B/P (MAP) Pulse Ox O2 Delivery O2 Flow Rate FiO2 04/18/18 11:04 36.8 68 20 111/74 (86) 94 Room Air Review Cardiovascular: regular rate, rhythm Lungs: lungs clear Pre-Sedation Airway Assessment Smoking Status: Never Smoker Hx of Sleep Apnea: No Short Thick Neck: No Thyro-mental Distance: > 3 Finger Breadths Oral Cavity: WNL Mallampati Classification: Class II ASA Classification: Class III NPO Status Date of Last Intake of Fluids: Apr 18, 2018 Time of Last Intake of Fluids: 0600 Date of Last Intake of Solids: Apr 17, 2018 Time of Last Intake of Solids: 2100 Procedure Planning Contraindications for Sedation: None Current Medications Reviewed: Yes Notes The planned sedation has been discussed with the patient. Informed Consent was obtained. I have identified the patient, determined the appropriateness of sedation and have assessed the patient immediately prior to the procedure. All medicine(s) and interventions are by my order.
--- NOTE | 2018-04-18 14:16 | [facility] Post Operative Brief Note ---
Immediate Operative Summary Operative Date Apr 18, 2018. Pre-Operative Diagnosis Malfunctioning Fistula Post-Operative Diagnosis Malfunctioning Fistula Procedure(s) Performed Fistulogram, Percutaneous Transluminal Angioplasty, Moderate Sedation from [address] Shannon Patient Service Representative Surgeon(s) Maribel Caballero MD Estimated Blood Loss 3 Findings Consistent with Post-Op Diagnosis Specimens None Drains None Anesthesia Type IV Sedat Cons RN Only Complication(s) none Disposition Accompanied Pt To Recover: no Disposition:
--- NOTE | 2018-04-18 14:19 | Discharge Instructions ---
Discharge Instructions Date of Service Apr 18, 2018. Visit Reason for Visit: End Stage Renal Disease Discharge Discharge Diagnosis / Problem: Malfunctioning left arm fistula Discharge Goals Goal(s): Therapeutic intervention Activity Recommendations Activity Limitations: per Instructions/Follow-up section Anesthesia . Post Anesthesia Instructions: If you have had General Anesthesia or IV Sedation: * Do not drive today. * Resume driving when surgeon permits. * Do not make important decisions or sign legal documents today. * Call surgeon for: 1. Temperature elevations greater than 101 degrees F. 2. Uncontrollable pain. 3. Excessive bleeding. 4. Persistent nausea and vomiting. 5. Medication intolerance (nausea, vomiting or rash). * For nausea and vomiting use only clear liquids such as: tea, soda, bouillon until nausea subsides, then gradually increase diet as tolerated. * If you have any concerns or questions, call your surgeon's office. If physician is unavailable and it is an emergency, call 911 or go to the nearest emergency room. . Instructions / Follow-Up Instructions / Follow-Up Call [phone] with any questions or concerns. SPECIAL CARE INSTRUCTIONS: Medications: * Continue to take your medications as directed. If you have been given a prescription for Plavix, please fill it immediately and take as directed. Incision Care: * Your puncture site may have some bruising and minor swelling for about one week. * You will have a small dressing covering your puncture site. You may remove the dressing after 24 hours and shower. You may let the warm soapy water run over it, but be sure to dry the puncture site well and keep it dry. * DO NOT IMMERSE THE INCISION IN A TUB/POOL/etc. UNTIL HEALED. * Puncture sites should be kept covered with a band-aid until it begins to heal. Restrictions: * Depending on whether you leg or arm was punctured to access the arteries, you will be required to lay flat, hold your arm still, or both, for about 4 hours after the procedure to prevent bleeding. * Limit your activity for the first 48 hours. You may walk and go up and down steps. Avoid excessive bending or movement at the puncture site. Possible Complications: * Excessive Swelling - after blood flow is improved you may notice increased swelling in the lower legs. This is a normal response. This usually depends on the amount of blockages in the leg, how long they have been there prior to your procedure and how much blood flow was restored. Elevating your legs will help to improve this. Please notify our office ([phone] ) if the swelling does not go away after lying in bed overnight. * Infection/Drainage/Bleeding - Drainage or bleeding from the puncture site should be minimal. If you have excessive bleeding or drainage, call our office ([phone]) right away. * Pain - You may experience some mild pain or soreness at your puncture site. If your pain does not improve, please contact our office ([phone]). Call your doctor and seek emergent treatment if you develop: * Temperature above 101 degrees * Any fever or chills * Any redness or purulent drainage from the puncture site * Any new dusky/blue colored toes or feet with coolness or sharp or aching pain. SKIN IRRITATION: * You may experience some redness and/or swelling in the area where radiation was administered. If any skin irritation occurs, please contact your family physician. FOLLOW UP VISIT: Keep any scheduled doctor appointments. Diet Recommendations Recommended Home Diet: resume previous diet Procedures Procedures Performed: Fistulogram, Percutaneous Transluminal Angioplasty, Moderate Sedation from 1350 to 1418. Pending Studies Studies pending at discharge: no Medical Emergencies . Who to Call and When: Medical Emergencies: If at any time you feel your situation is an emergency, please call 911 immediately. . Non-Emergent Contact Non-Emergency issues call your: Surgeon . . "Provider Documentation" section prepared by Dejan Shannon. .
--- NOTE | 2018-04-18 14:20 | Post Sedation Assessment ---
Post Sedation Assessment General Date of Sedation Apr 18, 2018. Vital Signs: Vital Signs Past 12 Hours Date Time Temp Pulse Resp B/P (MAP) Pulse Ox O2 Delivery O2 Flow Rate FiO2 04/18/18 14:18 70 21 136/73 96 Room Air 04/18/18 14:13 62 21 133/69 100 Oxymask 2 04/18/18 14:10 61 14 133/69 100 Oxymask 2 04/18/18 14:05 59 16 128/67 100 Oxymask 2 04/18/18 14:00 62 15 141/64 100 Oxymask 2 04/18/18 13:55 66 18 158/80 100 Oxymask 2 04/18/18 13:50 67 16 163/80 100 Oxymask 2 04/18/18 13:47 68 16 156/82 100 Oxymask 2 04/18/18 11:04 36.8 68 20 111/74 (86) 94 Room Air Post Procedure Recovery Score Activity: (2) Moves 4 extremities * Respiration: (2) Deep breath/cough Circulation: (2) +/-20% PreAnes Value Consciousness: (2) Fully Awake Oxygen Saturation: (2) > 92% On Room Air Post Anesthesia Score: 10 Discharge Sedation Level of Care: Fast Track Phase II Post Sedation Plan On clinical assessment, the patient appears to have tolerated the sedation without complications. Patient is recovering as anticipated. Patient will continue to be monitored by nursing and may be discharged when sedation discharge criteria are met per below protocol. Upon Completions of procedure and additional 15 minutes continue every 5 minute vital signs and the P.A.R. score; then discharge to a Phase I or Fast Track to Phase II per the following guidelines: * Discharge Patient to appropriate Phase II area if PAR is 8 or greater or return to pre- procedure baseline. The post - procedure orders will be as directed. * If PAR score is less than 8 or not return to pre-procedure baseline then patient will follow Phase I monitoring till PAR is reached for Phase II. The Phase I may be done in procedure room or may call to secure a Phase I area. * If naloxone or flumazenil are used for reversal, hold in Phase I for an additional 60 -120 minutes before discharge to Phase II. Please call the Sedation Physician to re-evaluate and complete post-note for discharge to Phase II area. Do NOT discharge from procedure sedation or Phase 1 until post- sedation evaluation note is complete by procedure /sedation MD Sedation Discharge Instructions to be given to the patient at discharge to home.
--- NOTE | 2018-04-18 14:25 | [facility] Operative Report ---
Operative Report Operative Date Apr 18, 2018. Pre-Operative Diagnosis Malfunctioning Fistula Post-Operative Diagnosis Malfunctioning Fistula Procedure(s) Performed Fistulogram, Percutaneous Transluminal Angioplasty, Moderate Sedation from [address] Shannon Plant Specialist Surgeon(s) Maribel Caballero MD Estimated Blood Loss 3 Findings Area of stenosis within fistula prior to area of previous stent placement, ballooned and open on completion fistulogram. Specimens None Drains None Anesthesia Type IV Sedat Cons RN Only Complication(s) none Indications 77 year old female with ESRD and AV fistula. AV fistula now having difficulty with flows during dialysis. Risks, benefits and alternatives were discussed with the patient and she agreed to proceed with the procedure. Description of Procedure The patient was brought to the angio suite and placed in the supine position with her left arm out. Her arm was prepped and draped in the usual sterile fashion. Preoperative antibiotics were administered. A palpable pulse could be felt over her fistula. Local anesthesia was administered. A percutaneous access site was selected and the fistula was accessed with a micropuncture kit. Fistulogram was then obtained, which showed stenosis in the fistula proximal to the previously placed stent in the same area that previously underwent angioplasty. This was easily passed by a wire. There was no central stenosis seen. A 5-Hebrew sheath was then placed. A 0.035 angled Glidewire was used to cross the area of stenosis. An [place] 6 mm x 60 mm balloon was advanced over the wire and inflated in the area of the stenosis. Completion fistulogram was done which showed improvement in the stenosis. There was improvement in the thrill in the fistula. The sheath was removed and pressure was held with hemostasis achieved. The patient tolerated the procedure well and was transferred to the PACU in good condition with a palpable thrill over her left AV fistula and no complications. Dr. Shannon was present and scrubbed for the entire case. I attest to the content of the Intraoperative Record and any orders documented therein. Any exceptions are noted below.
[2018-04-18 14:26] VITALS: BP 110/60; PULSE 64; TEMP 36.7; O2SAT 94
[2018-04-18 14:56] VITALS: BP 100/59; PULSE 66; TEMP 36.6; O2SAT 95
== END | disposition home or self-care (01) ==
LOC: C.ACU 10:31
PROVIDERS: ATTEND Surgery Vascular Surgery
DX: T82.858A Stenosis of other vascular prosthetic devices, implants and grafts, initial encounter (principal); Y83.8 Other surgical procedures as the cause of abnormal reaction of the patient, or of later complication, without mention of misadventure at the time of the procedure; N18.6 End stage renal disease; F32.9 Major depressive disorder, single episode, unspecified; K21.9 Gastro-esophageal reflux disease without esophagitis; Z96.649 Presence of unspecified artificial hip joint; Z79.82 Long term (current) use of aspirin; Z85.3 Personal history of malignant neoplasm of breast; Z90.49 Acquired absence of other specified parts of digestive tract

== ENCOUNTER 2019-11-24 18:24 | Inpatient (IN) ==
--- NOTE | 2019-11-24 19:03 | Emergency Department Note ---
ED Visit Note Patient seen and examined at bedside after discussion with physician team assistant. Patient with extensive ecchymosis noted in the right proximal lower extremity. New dialysis catheter noted with fresh appearing blood on the dressing. Patient and family note that she has been lightheaded with any change in position recently. Patient has had difficulty recently during dialysis with prior graft and fistula sites. New catheter was placed by Dr. Shannon recently. Patient takes a baby aspirin no other anticoagulation. Please refer to the PAs note for additional details. Dr. Shannon was contacted immediately. .
--- NOTE | 2019-11-24 19:25 | Emergency Department Note ---
History of Present Illness General Chief complaint: Bleeding Stated complaint: DIALYSIS PORT BLEEDING Time Seen by Provider: 11/24/19 18:46 History of Present Illness This is an 79-year-old female with a complex and extensive past medical history that presents to the emergency department via private vehicle with complaints of "dialysis port bleeding". This past the patient had a perm cath placed in the right femoral vein. She states that she was doing well and had dialysis on , Sunday and now today. After dialysis today the site began to bleed from the insertion site at the skin. She notes also bruising that has developed since its insertion in the right leg. She notes minimal pain in the area. She denies any fevers, chills, chest pain or shortness of breath. She does feel slightly lightheaded. Home Medications Home Medications Medication Instructions Recorded Confirmed Type Prilosec OTC 20 mg PO QAM 08/29/18 11/24/19 History acetaminophen [Tylenol Extra 500 mg PO BID 08/29/18 11/24/19 History Strength] anastrozole [Arimidex] 1 mg PO QDD 08/29/18 11/24/19 History aspirin 81 mg PO HS 08/29/18 11/24/19 History levothyroxine [Synthroid] 75 mcg PO HS 08/29/18 11/24/19 History polyethylene glycol 3350 [Miralax] 17 g PO DAILY PRN 08/29/18 11/24/19 History sertraline [Zoloft] 25 mg PO QPM 08/29/18 11/24/19 History simvastatin [Zocor] 20 mg PO HS 08/29/18 11/24/19 History Ocuvite with Lutein 1 tab PO BID 12/25/18 11/24/19 History glucosamine sulfate [Glucosamine] 500 mg PO QDD 12/25/18 11/24/19 History sevelamer carbonate [Renvela] 1,600 mg PO TIDM 12/25/18 11/24/19 History calcium carbonate [Calcium 500] 500 mg PO DAILY 11/20/19 11/24/19 History cinacalcet 30 mg PO 3XWK 11/24/19 11/24/19 History fluticasone propion-salmeterol 1 inh INHALATION BID 11/24/19 11/24/19 History [Advair Diskus] ipratropium-albuterol [Combivent 1 puff INHALATION QID 11/24/19 11/24/19 History Respimat] diltiazem HCl 180 mg PO 4XWK 11/25/19 11/25/19 History Allergies Allergy/AdvReac Type Severity Reaction Status Date / Time ketorolac Allergy Intermediate HIVES Verified 11/24/19 22:08 (HOWEVER PATIENT TAKES ASA AT HOME W/O RXN) Past Med/Surg History Medical History Anemia Anemia Breast cancer (Acute) left diagnosed in 2006/right in 2017--sx, radiation Chronic depression (Acute) End stage renal disease on dialysis sun-sun-sun - [facility] GERD (gastroesophageal reflux disease) Hearing deficit History of colon polyps HTN (hypertension) (Acute) Hyperlipidemia (Acute) Hypothyroidism Thyroid disease (Acute) Surgical History History of bilateral cataract extraction History of colonoscopy History of dilatation and curettage History of ear surgery right History of esophagogastroduodenoscopy (EGD) History of eye surgery right eye after cataract History of left breast biopsy malignant History of lumpectomy of left breast History of lumpectomy of right breast History of right breast biopsy malignant History of surgery removal of perm cath 07/03/19 [facility] History of tooth extraction History of total left hip replacement History of total right hip replacement x2 Status post creation of arteriovenous fistula (Acute) left upper arm. MWF dialysis. Status post partial resection of colon (Acute) d/t large polyp Family History Father Family hx of colon cancer Other No family history of adverse response to anesthesia Social History Preferred Language: Swedish Communication Ability: Effective Yield Engineer Required: No Beliefs That Will Affect Care: None marital status: / Current Living Situation: Alone Feels Safe at Home: Yes Smoking Status: Never smoker Second Hand Exposure: No ; Hx Alcohol Use: No Hx Substance Use: No Review of Systems A total of 10 systems reviewed and were otherwise negative Physical Exam Vital Signs Vital Signs - 24 hr 11/24/19 18:29 11/24/19 18:58 11/24/19 18:59 Temperature 36.7 C Temperature Source Oral Pulse Rate 78 Pulse Rate [Apical] 65 Respiratory Rate 18 18 Respiratory Effort / Characteristics Non-Labored Respiratory Depth Normal Normal Blood Pressure 88/46 L Blood Pressure [Right Arm] 116/48 L Blood Pressure Mean 60 Blood Pressure Mean [Right Arm] 70 Blood Pressure Position Pulse Oximetry 95 Oxygen Delivery Method Room Air Room Air Room Air Sepsis Recent Fever Within 48 Hours No Sepsis Action Taken by Nursing No Action Required 11/24/19 19:00 11/24/19 19:30 11/24/19 19:35 Temperature Temperature Source Pulse Rate 63 63 66 Pulse Rate [Apical] Respiratory Rate 16 22 21 Respiratory Effort / Characteristics Respiratory Depth Blood Pressure 112/49 L 106/58 L Blood Pressure [Right Arm] Blood Pressure Mean 66 67 Blood Pressure Mean [Right Arm] Blood Pressure Position Pulse Oximetry 97 96 Oxygen Delivery Method Room Air Sepsis Recent Fever Within 48 Hours Sepsis Action Taken by Nursing 11/24/19 20:00 11/24/19 21:03 11/24/19 21:30 Temperature Temperature Source Pulse Rate 68 71 71 Pulse Rate [Apical] Respiratory Rate 21 19 22 Respiratory Effort / Characteristics Respiratory Depth Blood Pressure 123/60 113/50 L 128/68 Blood Pressure [Right Arm] Blood Pressure Mean 79 82 91 Blood Pressure Mean [Right Arm] Blood Pressure Position Pulse Oximetry 97 98 96 Oxygen Delivery Method Sepsis Recent Fever Within 48 Hours Sepsis Action Taken by Nursing 11/24/19 22:00 11/24/19 22:47 11/24/19 23:07 Temperature 36.9 C Temperature Source Oral Pulse Rate 67 72 71 Pulse Rate [Apical] Respiratory Rate 20 16 22 Respiratory Effort / Characteristics Respiratory Depth Blood Pressure 129/57 L 126/61 108/52 L Blood Pressure [Right Arm] Blood Pressure Mean 77 73 70 Blood Pressure Mean [Right Arm] Blood Pressure Position Sitting Pulse Oximetry 98 97 97 Oxygen Delivery Method Sepsis Recent Fever Within 48 Hours Sepsis Action Taken by Nursing 11/24/19 23:27 Temperature 37.1 C Temperature Source Oral Pulse Rate 69 Pulse Rate [Apical] Respiratory Rate 26 H Respiratory Effort / Characteristics Respiratory Depth Blood Pressure 100/48 L Blood Pressure [Right Arm] Blood Pressure Mean 65 Blood Pressure Mean [Right Arm] Blood Pressure Position Sitting Pulse Oximetry 97 Oxygen Delivery Method Sepsis Recent Fever Within 48 Hours Sepsis Action Taken by Nursing VITAL SIGNS - Vital signs and nursing notes were reviewed. Patient is hypotensive on arrival. Otherwise stable. GENERAL -79-year-old female appearing her stated age who is in no acute distress . Communicates well with provider and answers questions appropriately. SKIN -there are various stages of healing bruises on the patient's body. There is bruising to the left forearm, the anterior/right side of the chest as well as circumferentially about the right proximal thigh. Most of the bruising is purple in color. There is also some mild extravasation of blood from the port insertion site on the right anterior thigh region. HEAD - NC/AT. EYES - PERRL with EOMI bilaterally. Sclera anicteric. EARS - No deformities of external structures noted on gross examination bilaterally. NOSE - Midline and without cyanosis. No epistaxis or purulent drainage noted. MOUTH/OROPHARYNX - Without perioral cyanosis. NECK - Neck with FROM. No nuchal rigidity. LUNGS - Chest wall symmetric without accessory muscle use, intercostals retractions, or central cyanosis. Normal vesicular breath sounds CTA B/L. No wheezes, rales, or rhonchi appreciated. CARDIAC - RRR with S1/S2. No murmur, rubs, or gallops appreciated. ABDOMEN - Abdominal contour normal without pulsations or visible masses. BS normoactive all four quadrants. No tenderness, palpable masses, hepatosplenomegaly, or ascites noted. EXTREMITIES - No clubbing or peripheral cyanosis. No pretibial edema present. Skin as above. +5/5 strength noted in UE/LE bilaterally. NEUROLOGIC - Cranial nerves II through XII grossly intact. PSYCH - A&O, and cooperates fully with examiner. Pt is very pleasant and interacts well with examiner. Course Administered Medications Acetaminophen (Tylenol) 500 mg PO BID COUNT INCLUDES THE [facility] Stop: 12/25/19 08:59 Last Admin: 11/25/19 07:50 Dose: 500 mg Documented by: [id number] Calcium Carbonate (Os-Fantasma 500) 1,250 mg PO DAILY COUNT INCLUDES THE [facility] Stop: 12/25/19 08:59 Last Admin: 11/25/19 07:49 Dose: 1,250 mg Documented by: [id number] Levothyroxine Sodium (Synthroid) 75 mcg PO DAILYBB COUNT INCLUDES THE [facility] Stop: 12/25/19 06:29 Last Admin: 11/25/19 05:49 Dose: 75 mcg Documented by: [id number] Multivitamins/Minerals (Multivitamin W/ Minerals Tab) 1 tab PO DAILY PAM Stop: 12/25/19 08:59 Last Admin: 11/25/19 07:49 Dose: 1 tab Documented by: [id number] Pantoprazole Sodium (Protonix) 40 mg PO QAM PAM Stop: 12/25/19 08:59 Last Admin: 11/25/19 07:50 Dose: 40 mg Documented by: [id number] Sevelamer HCl (Renagel) 1,600 mg PO TIDM PAM Stop: 12/25/19 07:59 Last Admin: 11/25/19 11:42 Dose: 1,600 mg Documented by: [id number] Admin: 11/25/19 07:50 Dose: Not Given Documented by: [id number] Discontinued Medications Diltiazem HCl (Tiazac) 360 mg PO SuTuThSa@0900 PAM Stop: 12/25/19 08:59 Last Admin: 11/25/19 07:50 Dose: 360 mg Documented by: [id number] Desmopressin Acetate 30 mcg/ (Sodium Chloride) 57.5 mls @ 345 mls/hr IV ONE ONE Stop: 11/25/19 14:09 Last Infusion: 11/25/19 14:36 Dose: 0 mls/hr Documented by: [id number] Admin: 11/25/19 14:24 Dose: 345 mls/hr Documented by: [id number] Critical Care Time Critical Care Time: Yes I have personally spent 45 minutes of critical care time in the direct management of this patient. This includes bedside care, interpretation of diagnostic studies, and testing, discussion with consultants, patient, and family members, and other required patient management activities. This 45 minutes is in excess of all separately billable procedures. Medical Decision Making Laboratory Data Result diagrams: 11/25/19 13:44 11/25/19 05:01 Lab Results 11/24/19 11/24/19 11/24/19 Range/Units 19:13 19:13 19:13 WBC 4.95 (4.8-10.8) K/uL RBC 2.07 L (4.2-5.4) M/uL Hgb 6.7 L* (12.0-16.0) g/dL Hct 21.6 L (37-47) % MCV 104.3 H (80-100) fL MCH 32.4 (25-34) pg MCHC 31.0 L (32-36) g/dL RDW Std Deviation 70.4 H (36.4-46.3) fL RDW Coeff of Derek 19.0 H (11.5-14.5) % Plt Count 187 (130-400) K/uL MPV 9.6 (7.4-10.4) fL Immature Gran % (Auto) 0.2 % Neut % (Auto) 68.9 % Lymph % (Auto) 22.2 % Cata[place]oula % (Auto) 6.9 % Eos % (Auto) 1.4 % Baso % (Auto) 0.4 % Immature Gran # (Auto) 0.01 (0.00-0.02) K/uL Neut # (Auto) 3.41 (1.4-6.5) K/uL Lymph # (Auto) 1.10 L (1.2-3.4) K/uL [place]oula # (Auto) 0.34 (0.11-0.59) K/uL Eos # (Auto) 0.07 (0-0.5) K/uL Baso # (Auto) 0.02 (0-0.2) K/uL Polychromasia 1+ Anisocytosis Present PT 11.4 (9.0-12.0) Seconds INR 1.1 (0.9-1.1) APTT 114.9 H* (21.0-31.0) Seconds PTT Ratio 4.1 Sodium 138 (136-145) mmol/L Potassium 3.9 (3.5-5.1) mmol/L Chloride 104 (98-107) mmol/L Carbon Dioxide 29 (21-32) mmol/L Anion Gap 5.0 (3-11) BUN 29 H (7-18) mg/dl Creatinine 5.31 H* (0.6-1.2) mg/dl Est Cr Clr Drug Dosing Not Reportable Est GFR ( Amer) 8.1 Est GFR (Non-Af Amer) 7.0 BUN/Creatinine Ratio 5.4 L (10-20) Glucose 98 (70-99) mg/dl Calcium 8.7 (8.5-10.1) mg/dl Total Bilirubin 0.8 (0.2-1) mg/dl AST 29 (15-37) U/L ALT 12 (12-78) U/L Alkaline Phosphatase 152 H (45-117) U/L Troponin I 0.016 (0-0.045) ng/ml Total Protein 6.9 (6.4-8.2) gm/dl Albumin 3.4 (3.4-5.0) gm/dl Globulin 3.5 (2.5-4.0) gm/dl Albumin/Globulin Ratio 1.0 (0.9-2) Blood Type Antibody Screen Crossmatch 11/24/19 Range/Units 20:47 WBC (4.8-10.8) K/uL RBC (4.2-5.4) M/uL Hgb (12.0-16.0) g/dL Hct (37-47) % MCV (80-100) fL MCH (25-34) pg MCHC (32-36) g/dL RDW Std Deviation (36.4-46.3) fL RDW Coeff of Derek (11.5-14.5) % Plt Count (130-400) K/uL MPV (7.4-10.4) fL Immature Gran % (Auto) % Neut % (Auto) % Lymph % (Auto) % [place]oula % (Auto) % Eos % (Auto) % Baso % (Auto) % Immature Gran # (Auto) (0.00-0.02) K/uL Neut # (Auto) (1.4-6.5) K/uL Lymph # (Auto) (1.2-3.4) K/uL [place]oula # (Auto) (0.11-0.59) K/uL Eos # (Auto) (0-0.5) K/uL Baso # (Auto) (0-0.2) K/uL Polychromasia Anisocytosis PT (9.0-12.0) Seconds INR (0.9-1.1) APTT (21.0-31.0) Seconds PTT Ratio Sodium (136-145) mmol/L Potassium (3.5-5.1) mmol/L Chloride (98-107) mmol/L Carbon Dioxide (21-32) mmol/L Anion Gap (3-11) BUN (7-18) mg/dl Creatinine (0.6-1.2) mg/dl Est Cr Clr Drug Dosing Est GFR ( Amer) Est GFR (Non-Af Amer) BUN/Creatinine Ratio (10-20) Glucose (70-99) mg/dl Calcium (8.5-10.1) mg/dl Total Bilirubin (0.2-1) mg/dl AST (15-37) U/L ALT (12-78) U/L Alkaline Phosphatase (45-117) U/L Troponin I (0-0.045) ng/ml Total Protein (6.4-8.2) gm/dl Albumin (3.4-5.0) gm/dl Globulin (2.5-4.0) gm/dl Albumin/Globulin Ratio (0.9-2) Blood Type O Positive Antibody Screen NEGATIVE Crossmatch See Detail Imaging Data Radiologist's Impression: CT femur RT wo con CT DOSE: 668.52 mGy.cm HISTORY: Trauma R thigh bruising, hypotension, perm cath fem vein TECHNIQUE: Multiaxial CT images of the right femur were performed and reformatted in the sagittal and coronal plane without the use of contrast. A dose lowering technique was utilized adhering to the principles of ALARA. COMPARISON: 03/24/2018 FINDINGS: Total bilateral hip arthroplasties. Right femoral catheter placed. Its superior extent is not confirmed, although this most likely is in the iliac arterial supply. Mild soft tissue edematous change of the proximal anterior right thigh. No well- defined mass or collection. The major muscular structures are unremarkable. IMPRESSION: 1. Minimal to mild subcutaneous edematous change proximal right thigh, possibly on a postoperative basis. 2. No evidence for hematoma collection or abscess. ACT 112: Negative or not required by law. The above report was generated using voice recognition software. It may contain grammatical, syntax or spelling errors. Electronically signed by: Jimbo Justice M.D. 11/24/2019 9:14 PM MDM Narrative Patient was seen and evaluated as above in room D04. Review was performed of nursing notes and vital signs. After obtaining a thorough history and physical examination the above work up was performed. She presents to us today with some lightheadedness with bruising and minimal active extravasation at the right leg cath site. She is nontoxic on exam. She has hypotensive on arrival. I discussed this with the attending physician who also personally evaluated the patient. I did discuss the presentation with the surgeon who performed her procedure, Dr. Shannon. Direct pressure and pressure dressing recommended. This was placed, and reevaluated several times. Care was taken to ensure this was not constrictive of limb perfusion. She had WNL distal pulses on each reassessment. She denied any pain and felt it was not too tight. I did order baseline labs. There is significant anemia. In discussing the case with the attending physician a CT scan was recommended of the right lower extremity to ensure that there was no active extravasation/large hematoma deep in the leg as the source of the anemia. This was obtained. Results as above. No active extravasation or hematoma. I did not use contrast for this noting that she will not be able to have dialysis for about 33 hours from now. She does have bruising to the left forearm and anterior chest. She also notes that she has a bleeding hemorrhoid at times with BM. Patient APTT is elongated. There is no leukocytosis. There is interval hemoglobin decreased at 6.7. Patient's hemoglobin has dropped several points from previous. Type and screen was ordered. No emergent metabolic disturbance other than creatinine which is near her baseline. Type and screen was ordered and then transfuse 1 unit. Patient consented. Given the patient's hemoglobin and symptomatic anemia at this time inpatient evaluation is felt to be warranted. Please refer to further documentation regarding her stay. Case was discussed with the attending physician. In the evaluation and treatment of this patient the following differential diagnoses were entertained: Symptomatic anemia, hematoma, active extravasation, iron deficiency, among others Impression & Plan Symptomatic anemia Discharge Plan Visit Data *Final* Discharge Date/Time: 11/25/19 00:12 Chief Complaint: Bleeding Stated Complaint: DIALYSIS PORT BLEEDING ED Provider: Lucretia Medina ED Midlevel Provider: Earl Mesa Discharge Problem: Symptomatic anemia Patient Disposition: Admitted As Inpatient Condition: Good Discharge Instructions Interventions: ED Discharge Assessment Last Done: 11/25/19 00:12
[2019-11-24 19:47] LABS: INR 1.1 (0.9-1.1); Partial Thromboplastin Ratio 4.1; Prothrombin Time 11.4 Seconds (9.0-12.0)
[2019-11-24 19:49] LABS: Partial Thromboplastin Time 114.9 Seconds (21.0-31.0)
[2019-11-24 20:12] LABS: Alanine Aminotransferase 12 U/L (12-78); Albumin Level 3.4 gm/dl (3.4-5.0); Alkaline Phosphatase 152 U/L (45-117); Aspartate Aminotransferase 29 U/L (15-37); BUN Creatinine Ratio 5.4 (10-20); Bilirubin,Total 0.8 mg/dl (0.2-1); Blood Urea Nitrogen 29 mg/dl (7-18); Calcium 8.7 mg/dl (8.5-10.1); Carbon Dioxide 29 mmol/L (21-32); Chloride 104 mmol/L (98-107); Est GFR (African American) 8.1; Globulin 3.5 gm/dl (2.5-4.0); Glucose 98 mg/dl (70-99); Potassium 3.9 mmol/L (3.5-5.1); Sodium 138 mmol/L (136-145); Total Protein 6.9 gm/dl (6.4-8.2)
[2019-11-24 20:21] LABS: Anisocytosis Present; Basophils # (auto) 0.02 K/uL (0-0.2); Basophils % (auto) 0.4 %; Eosinophils # (auto) 0.07 K/uL (0-0.5); Eosinophils % (auto) 1.4 %; Hematocrit (blood only) 21.6 % (37-47); Hemoglobin 6.7 g/dL (12.0-16.0); Immature Granulocytes # (auto) 0.01 K/uL (0.00-0.02); Immature Granulocytes % (auto) 0.2 %; Lymphocytes % (auto) 22.2 %; Mean Corpuscular Hemoglobin 32.4 pg (25-34); Mean Corpuscular Volume 104.3 fL (80-100); Mean Platelet Volume 9.6 fL (7.4-10.4); Monocytes # (auto) 0.34 K/uL (0.11-0.59); Monocytes % (auto) 6.9 %; Neutrophils # (auto) 3.41 K/uL (1.4-6.5); Neutrophils % (auto) 68.9 %; Platelet Count 187 K/uL (130-400); Polychromasia 1+; RDW Standard Deviation 70.4 fL (36.4-46.3); Red Blood Count 2.07 M/uL (4.2-5.4); White Blood Count 4.95 K/uL (4.8-10.8)
--- NOTE | 2019-11-24 21:15 | CT Scan Report ---
CT femur RT wo con CT DOSE: 668.52 mGy.cm HISTORY: Trauma R thigh bruising, hypotension, perm cath fem vein TECHNIQUE: Multiaxial CT images of the right femur were performed and reformatted in the sagittal and coronal plane without the use of contrast. A dose lowering technique was utilized adhering to the p rinciples of KARLEE. COMPARISON: 03/24/2018 FINDINGS: Total bilateral hip arthroplasties. Right femoral catheter placed. Its superior extent is n ot confirmed, although this most likely is in the iliac arterial supply. Mild soft tissue edematous change of the proximal anterior right thigh. No well-defined mass or colle ction. The major muscular structures are unremarkable. IMPRESSION: 1. Minimal to mild subcutaneous edematous change proximal right thigh, possibly on a postoperative ba sis. 2. No evidence for hematoma collection or abscess. ACT 112: Negative or not required by law. The above report was generated using voice recognition software. It may contain grammatical, syntax or spelling errors. Electronically signed by: Jimbo Justice M.D. 11/24/2019 9:14 PM
[2019-11-24] MEDS ORDERED: SODIUM CHLORIDE 0.9% 250 ML IV PRN ×2 (21:30→22:38)
[2019-11-24 22:50] LABS: Troponin I 0.016 ng/ml (0-0.045)
[2019-11-25] MEDS ORDERED: ACETAMINOPHEN 325 MG TAB PO PRN (00:40)
[2019-11-25] MEDS ORDERED: NITROGLYCERIN SL 0.4 MG/TAB TAB SL PRN (00:40)
[2019-11-25] MEDS ORDERED: ONDANSETRON INJ 2 MG/ML 2 ML VIAL IV PRN (00:40)
[2019-11-25] MEDS ORDERED: POLYETHYLENE (MIRALAX) 17 GM PACK PO PRN (00:40)
--- NOTE | 2019-11-25 01:38 | History and Physical Report ---
DATE OF ADMISSION: 11/24/2019 CHIEF COMPLAINT: Bleeding from the cath site. 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 The patient was getting dialysis from the graft and fistula on the left upper extremity, but this was not working,.So was tried PermCath on the right side of the chest, but it did not work . She is status post left femoral PermCath last . She had dialysis after that and last dialysis was today morning. After dialysis, she noticed some blood coming from the cath site. It was not stopping and she was feeling a little dizzy and lightheaded and also some shortness of breath, so she came in. When she came in, she was hypotensive. Vascular surgery was notified and advised for pressure banding which was placed in and initial plan was to send her home . But because of boderline low blood pressure and dizziness and hemoglobin came back at 6.7 whereas the baseline hemoglobin was 10.2 in September was decided to observe in the hospital.. Er ordered a unit of PRBCs and plan to keep her in the hospital for further monitoring. She still has some mild woozing from the cath site. She has some chronic cough. She has some runny nose on and off, some shortness of breath on and off. Denies any chest pain, no fevers, no headache, no blurred vision. Somewhat hard of hearing. No sore throat, no difficulty swallowing. Appetite is okay. No nausea, no abdominal pain. She is somewhat constipated. Denies any blood in her stools or black stools, but says she has hemorrhoids and they act up sometimes.. She makes a small amount of urine. No swelling in the legs. She is independent, but since her procedure, she is walking with a walker. She lives alone, but her daughter living with her since the procedure last . ALLERGIES: TORADOL. PAST MEDICAL HISTORY: As mentioned above. PAST SURGICAL HISTORY: Biopsy of the left breast, colonoscopy with biopsy, EGDs, left partial mastectomy, partial colectomy with anastomosis, partial removal of the eye fluid, cataract surgery, revision of the middle ear bone, total hip replacement, vaginal delivery x3. MEDICATIONS: The patient is on Tylenol 500 mg p.o. b.i.d., Advair Diskus one puff b.i.d., anastrozole 1 mg p.o. daily, aspirin 81 mg p.o. at bedtime, calcium 500 mg p.o. daily, Cinacalcet 30 mg p.o. 3 times a week, diltiazem 360 mg 4 times a week, glucosamine 500 mg p.o. daily, Combivent 1 puff q.i.d., levothyroxine 25 mcg p.o. at bedtime, Ocuvite with Lutein 1 tablet p.o. b.i.d., MiraLax 17 grams p.o. daily p.r.n., Prilosec 20 mg p.o. q.a.m., Zoloft 25 mg p.o. q.p.m., Renvela 600 mg p.o. t.i.d. with meals, simvastatin 20 mg p.o. at bedtime. FAMILY HISTORY: Significant for father had colon cancer. Sister had breast cancer, eye problems. Mother has hypertension. SOCIAL HISTORY: Currently lives alone, but her daughter is living currently. No smoking history. No alcohol, no drug use. REVIEW OF SYMPTOMS: As per HPI. Rest of the review of symptoms are negative. PHYSICAL EXAMINATION: GENERAL: The patient is of moderate build, not in acute distress. VITAL SIGNS: Temperature 36.6, pulse 67, respiratory rate 22, blood pressure 99/48, oxygen 98% room air. HEENT: Pupils equal, round, reactive to light. Extraocular muscles intact. NECK: No JVD, no neck masses, no carotid bruits. CARDIOVASCULAR: S1, S2 heard, regular rate and rhythm, no murmur, no gallop. RESPIRATORY SYSTEM: Normal AP diameter. No accessory muscle use. No wheezing, no crackles. ABDOMEN: Soft, bowel sounds present, nontender. No distention. CENTRAL NERVOUS SYSTEM: Alert and oriented. Nonfocal. EXTREMITIES: No edema. Erythema seen in the right femoral PermCath site with slight oozing of the blood. Pressure bandage seen. SKIN: Bruises seen on the left-sided chest wall. LABORATORY DATA: WBC 4, hemoglobin 6.7, hematocrit 21.6, platelets 187. PT 11.5, INR 1.1, APTT 14.9. Sodium 138, potassium 3.9, chloride 104, bicarbonate 29, BUN 29, creatinine 1.3, serum glucose 98, calcium 8.7, total bilirubin 0.8, AST 29, ALT 12, alkaline phosphatase 152. Troponin I 0.016. IMAGING: CT of the femur. Minimal to mild subcutaneous erythematous change proximal right thigh, possibly on a postoperative basis. EKG: Normal sinus rhythm, rate of 73, nonspecific T-wave abnormalities. ASSESSMENT AND PLAN: This is an 79-year-old female who presents with oozing of blood from the right femoral PermCath site. 1. Bleeding from the right femoral PermCath site. Vascular surgery was notified and was advised for pressure banding.Still somewhat oozing . Close monitoring.. Consult vascular surgery in morning. 2. Anemia, acute blood loss. Possibly from above. Baseline hemoglobin is 10.2, currently 6.9, but somewhat symptomatic with dizziness, some shortness of breath, getting 1 unit of PRBC in the ER which we will continue. We will continue and follow the labs in a.m. 3. End-stage renal disease, on hemodialysis. Consult nephrology as patient is getting blood transfusion. 4. History of chronic obstructive pulmonary disease. Continue her home inhalers, currently stable. 5. History of gastroesophageal reflux disease. Continue PPI. 6. Depression. Continue Zoloft. 7. History of breast cancer, status post left partial mastectomy, on anastrozole. 8. Hypertension, currently not on medication. Monitor blood pressure closely. 9. Deep venous thrombosis prophylaxis, sequential compression devices. DISPOSITION: Observe in med/surg tele. Level 1 full code. PT and OT prior to discharge. Social Service to help with discharge planning. DOLORES
[2019-11-25 05:30] LABS: Hematocrit (blood only) 21.5 % (37-47); Hemoglobin 6.8 g/dL (12.0-16.0); Mean Corpuscular Hemoglobin 32.1 pg (25-34); Mean Corpuscular Hgb Conc 31.6 g/dL (32-36); Mean Corpuscular Volume 101.4 fL (80-100); Mean Platelet Volume 9.3 fL (7.4-10.4); Platelet Count 168 K/uL (130-400); RDW Coefficient of Variation 19.1 % (11.5-14.5); Red Blood Count 2.12 M/uL (4.2-5.4); White Blood Count 3.68 K/uL (4.8-10.8)
[2019-11-25] MEDS ORDERED: SODIUM CHLORIDE 0.9% 250 ML IV PRN ×2 (05:49→06:01)
[2019-11-25] MEDS: LEVOTHYROXINE SODIUM 75 MCG TABLET PO SCH (05:49)
[2019-11-25 05:57] LABS: BUN Creatinine Ratio 5.7 (10-20); Calcium 8.5 mg/dl (8.5-10.1); Creatinine Clr Calc Pharmacy 7.2 ml/min; Est GFR (African American) 6.8; Est GFR (Non-African American) 5.8; Potassium 3.9 mmol/L (3.5-5.1)
[2019-11-25 06:23] LABS: Eosinophils # (auto) 0.08 K/uL (0-0.5); Eosinophils % (auto) 2.2 %; Immature Granulocytes # (auto) 0.02 K/uL (0.00-0.02); Immature Granulocytes % (auto) 0.5 %; Lymphocytes # (auto) 1.19 K/uL (1.2-3.4); Lymphocytes % (auto) 32.3 %; Monocytes # (auto) 0.28 K/uL (0.11-0.59); Monocytes % (auto) 7.6 %; Neutrophils # (auto) 2.11 K/uL (1.4-6.5); Neutrophils % (auto) 57.4 %; RBC Morphology Unremarkable
[2019-11-25] MEDS: CEROVITE ADV FORMULA TAB PO SCH (07:49)
[2019-11-25] MEDS: CALCIUM CARBONATE 1250MG TAB PO SCH (07:49)
[2019-11-25] MEDS: ACETAMINOPHEN 500 MG TAB PO SCH ×2 (07:50→21:07)
[2019-11-25] MEDS: SEVELAMER HCL 800 MG TABLET PO SCH ×3 (07:50→17:21)
[2019-11-25] MEDS: PANTOprazole 40 MG TAB PO SCH (07:50)
[2019-11-25] MEDS ORDERED: dilTIAZem ER 180 MG CAPCR PO SCH (09:00)
--- NOTE | 2019-11-25 09:33 | Nephrology Consultation ---
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 HD MWF [facility] (3.5hr F- 160NR 2K 2Ca 1Mg Na 140 HCO3 34). Last HD was yesterday. Currently no volume overload. Electrolyte balance is acceptable. No acute indication for HD today. -- Recommend low K/dialysis diet, continue home medications -- Will schedule next HD for am in case patient remains hospitalized. If discharge is anticipated please have patient resume MWF outpatient HD at [facility] (2) Anemia: -- No active bleeding from femoral dialysis catheter site -- Recommend transfusing to maintain Hgb > 8.0 -- Will hold heparin w/ dialysis and provide GAEL History of Present Illness Reason for Consultation: ESRD on HD Attending Physician: Soha Garcia MD History of Present Illness Ms. Amato is an 79 year old white female who is seen at the request of Dr. Garcia to assist w/ medical management and provide hemodialysis. Medical records in the EMR were reviewed today and are summarized as follows: Ms. 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 She has been on IHD since 09/15. She had a LUE AVG placed by Dr. Shannon 10/16. This failed and Ms. Amato underwent L RC AVF 09/22. The AVF was slow to mature and when accessed recently infiltrated. Ms. Amato underwent R femoral THC insertion 11/20. Attempts at IJ THC were unsuccessful. She was dialyzed yesterday but then developed bleeding a t her R femoral site. Ms. Amato presented to the ED where Hgb was 6.8. She was transfused one unit PRBC in the ED and subsequently admitted for ongoing medical management. PMH: ESRD (HD MWF [facility] 3.5hr F-160NR 2K 2Ca 1Mg Na 140 HCO3 34), HTN anemia, COPD, macular degeneration, OA, breast CA s/p lumpectomy 10/20 [facility] / rad tx, hypothyroidism, depression. Allergies Allergy/AdvReac Type Severity Reaction Status Date / Time ketorolac Allergy Intermediate HIVES Verified 11/24/19 22:08 (HOWEVER PATIENT TAKES ASA AT HOME W/O RXN) Home Medications Home Medications Medication Instructions Recorded Confirmed Type Prilosec OTC 20 mg PO QAM 08/29/18 11/24/19 History acetaminophen [Tylenol Extra 500 mg PO BID 08/29/18 11/24/19 History Strength] anastrozole [Arimidex] 1 mg PO QDD 08/29/18 11/24/19 History aspirin 81 mg PO HS 08/29/18 11/24/19 History diltiazem HCl 360 mg PO 4XWK 08/29/18 11/24/19 History levothyroxine [Synthroid] 75 mcg PO HS 08/29/18 11/24/19 History polyethylene glycol 3350 [Miralax] 17 g PO DAILY PRN 08/29/18 11/24/19 History sertraline [Zoloft] 25 mg PO QPM 08/29/18 11/24/19 History simvastatin [Zocor] 20 mg PO HS 08/29/18 11/24/19 History Ocuvite with Lutein 1 tab PO BID 12/25/18 11/24/19 History glucosamine sulfate [Glucosamine] 500 mg PO QDD 12/25/18 11/24/19 History sevelamer carbonate [Renvela] 1,600 mg PO TIDM 12/25/18 11/24/19 History calcium carbonate [Calcium 500] 500 mg PO DAILY 11/20/19 11/24/19 History Advair Diskus 1 puff INHALATION BID 11/24/19 11/24/19 History cinacalcet 30 mg PO 3XWK 11/24/19 11/24/19 History ipratropium-albuterol [Combivent 1 puff INHALATION QID 11/24/19 11/24/19 History Respimat] Patient History Medical History Anemia Anemia Breast cancer (Acute) left diagnosed in 2006/right in 2017--sx, radiation Chronic depression (Acute) End stage renal disease on dialysis sun- - [facility] GERD (gastroesophageal reflux disease) Hearing deficit History of colon polyps HTN (hypertension) (Acute) Hyperlipidemia (Acute) Hypothyroidism Thyroid disease (Acute) Surgical History History of bilateral cataract extraction History of colonoscopy History of dilatation and curettage History of ear surgery right History of esophagogastroduodenoscopy (EGD) History of eye surgery right eye after cataract History of left breast biopsy malignant History of lumpectomy of left breast History of lumpectomy of right breast History of right breast biopsy malignant History of surgery removal of perm cath 07/03/19 [facility] History of tooth extraction History of total left hip replacement History of total right hip replacement x2 Status post creation of arteriovenous fistula (Acute) left upper arm. MWF dialysis. Status post partial resection of colon (Acute) d/t large polyp Family History Father Family hx of colon cancer Other No family history of adverse response to anesthesia Social History Preferred Language: Italian Communication Ability: Effective Animal Eviscerator Required: No Beliefs That Will Affect Care: None marital status: / Current Living Situation: Alone Feels Safe at Home: Yes Smoking Status: Never smoker Second Hand Exposure: No ; Hx Alcohol Use: No Hx Substance Use: No Review of Systems Constitutional: no fever and no chills Eyes: no problem reported Ear, Nose, Mouth, Throat: no problem reported Respiratory: no cough and no dyspnea Cardiovascular: no chest pain, no palpitations and no edema Gastrointestinal: no abdominal pain, no nausea, no vomiting and no diarrhea/loose stools Genitourinary: no dysuria and no hematuria Musculoskeletal: no back pain Integumentary: no rash Neurologic: no falls, no dizziness and no confusion Physical Exam Constitutional: + frail appearing; not in distress Eyes: PERRL, conjunctivae normal, anicteric sclerae ENMT: external ear and nose normal, oropharynx normal Neck: trachea midline, no thyromegaly Respiratory: normal respiratory effort, lungs clear to auscultation Cardiovascular: RRR, no murmur, no edema Gastrointestinal (Abdomen): normal bowel sounds, soft, nontender, no hepatosplenomegaly Musculoskeletal: Extremities: no cyanosis Skin: no rashes, warm and dry ecchymosis surrounding L forearm AVF, R IJ site and R thigh Neurologic: awake; not confused Results & Data Vital Signs (Past 12 Hours) Vital Signs Temp Pulse Pulse Pulse Resp BP BP 11/25/19 08:55 36.8 C 72 18 133/70 11/25/19 08:25 36.8 C 73 18 134/71 11/25/19 08:10 36.9 C 74 18 133/67 11/25/19 07:55 36.9 C 75 18 117/61 11/25/19 06:35 36.9 C 73 19 117/66 11/25/19 03:57 37.1 C 72 19 111/57 L 11/25/19 01:12 36.7 C 72 18 132/72 11/25/19 01:10 36.7 C 72 18 132/72 11/25/19 00:37 72 11/25/19 00:12 37.0 C 65 23 118/57 L 11/24/19 23:42 36.6 C 67 22 99/48 L 11/24/19 23:27 37.1 C 69 26 H 100/48 L 11/24/19 23:07 36.9 C 71 22 108/52 L 11/24/19 22:47 72 16 126/61 11/24/19 22:00 67 20 129/57 L Pulse Ox 11/25/19 08:55 94 11/25/19 08:25 95 11/25/19 08:10 93 11/25/19 07:55 92 11/25/19 06:35 93 11/25/19 03:57 92 11/25/19 01:12 96 11/25/19 01:10 96 11/25/19 00:37 11/25/19 00:12 97 11/24/19 23:42 98 11/24/19 23:27 97 11/24/19 23:07 97 11/24/19 22:47 97 11/24/19 22:00 98 Laboratory Results Laboratory Results WBC 3.68 K/uL (4.8-10.8) L 11/25/19 05:01 RBC 2.12 M/uL (4.2-5.4) L 11/25/19 05:01 Hgb 6.8 g/dL (12.0-16.0) L* 11/25/19 05:01 Hct 21.5 % (37-47) L 11/25/19 05:01 MCV 101.4 fL (80-100) H 11/25/19 05:01 MCH 32.1 pg (25-34) 11/25/19 05:01 MCHC 31.6 g/dL (32-36) L 11/25/19 05:01 RDW Std Deviation 68.0 fL (36.4-46.3) H 11/25/19 05:01 RDW Coeff of Derek 19.1 % (11.5-14.5) H 11/25/19 05:01 Plt Count 168 K/uL (130-400) 11/25/19 05:01 MPV 9.3 fL (7.4-10.4) 11/25/19 05:01 Immature Gran % (Auto) 0.5 % 11/25/19 05:01 Neut % (Auto) 57.4 % 11/25/19 05:01 Lymph % (Auto) 32.3 % 11/25/19 05:01 [place] % (Auto) 7.6 % 11/25/19 05:01 Eos % (Auto) 2.2 % 11/25/19 05:01 Baso % (Auto) 0.0 % 11/25/19 05:01 Immature Gran # (Auto) 0.02 K/uL (0.00-0.02) 11/25/19 05:01 Neut # (Auto) 2.11 K/uL (1.4-6.5) 11/25/19 05:01 Lymph # (Auto) 1.19 K/uL (1.2-3.4) L 11/25/19 05:01 [place] # (Auto) 0.28 K/uL (0.11-0.59) 11/25/19 05:01 Eos # (Auto) 0.08 K/uL (0-0.5) 11/25/19 05:01 Baso # (Auto) 0.00 K/uL (0-0.2) 11/25/19 05:01 RBC Morphology Unremarkable 11/25/19 05:01 Polychromasia 1+ 11/24/19 19:13 Anisocytosis Present 11/24/19 19:13 PT 11.4 Seconds (9.0-12.0) 11/24/19 19:13 INR 1.1 (0.9-1.1) 11/24/19 19:13 APTT 114.9 Seconds (21.0-31.0) H* 11/24/19 19:13 PTT Ratio 4.1 11/24/19 19:13 Sodium 140 mmol/L (136-145) 11/25/19 05:01 Potassium 3.9 mmol/L (3.5-5.1) 11/25/19 05:01 Chloride 106 mmol/L (98-107) 11/25/19 05:01 Carbon Dioxide 31 mmol/L (21-32) 11/25/19 05:01 Anion Gap 3.0 (3-11) 11/25/19 05:01 BUN 36 mg/dl (7-18) H 11/25/19 05:01 Creatinine 6.19 mg/dl (0.6-1.2) H* D 11/25/19 05:01 Est Cr Clr Drug Dosing 7.2 ml/min 11/25/19 05:01 Est GFR ( Amer) 6.8 11/25/19 05:01 Est GFR (Non-Af Amer) 5.8 11/25/19 05:01 BUN/Creatinine Ratio 5.7 (10-20) L 11/25/19 05:01 Glucose 96 mg/dl (70-99) 11/25/19 05:01 Calcium 8.5 mg/dl (8.5-10.1) 11/25/19 05:01 Magnesium 2.0 mg/dl (1.8-2.4) 11/25/19 05:01 Total Bilirubin 0.8 mg/dl (0.2-1) 11/24/19 19:13 AST 29 U/L (15-37) 11/24/19 19:13 ALT 12 U/L (12-78) 11/24/19 19:13 Alkaline Phosphatase 152 U/L (45-117) H 11/24/19 19:13 Troponin I 0.016 ng/ml (0-0.045) 11/24/19 19:13 Total Protein 6.9 gm/dl (6.4-8.2) 11/24/19 19:13 Albumin 3.4 gm/dl (3.4-5.0) 11/24/19 19:13 Globulin 3.5 gm/dl (2.5-4.0) 11/24/19 19:13 Albumin/Globulin Ratio 1.0 (0.9-2) 11/24/19 19:13 Blood Type O Positive 11/24/19 20:47 Antibody Screen NEGATIVE 11/24/19 20:47 Crossmatch See Detail 11/24/19 20:47 PG Care Time/CCT Total # of Minutes Spent Total Time Spent with Patient: Total time spent is greater than 50% in coordination of care (as documented) at patient's floor/unit and/or counseling patient: Coding Level of Care Code 02734 Inpt Consult Level 5 Diagnoses ESRD (end stage renal disease) on dialysis N18.6; Z99.2 Anemia D64.9
--- NOTE | 2019-11-25 09:42 | Consultation ---
Date of Consultation November 25, 2019 Assessment & Plan (1) ESRD (end stage renal disease) on dialysis: Pt with multiple site of recent bleeding(R chest, L forarm infiltration, as well as R thigh permcath site), all likely contributing to anemia. No active bleeding noted from R thigh permcath at this time, but may be susceptible to further bleeding after HD session d/t manipulation of the catheter. No organized hematoma noted or requiring evacuation. No indications for vascular surgical intervention at this time. May use R femoral permcath as needed. Please call if needed. History of Present Illness Reason for Consultation: bleeding from R thigh permcath Attending Physician: Soha Garcia MD History of Present Illness 79 yo f with hx of ESRD on HD, known to Dr Shannon for vascular access for HD, seen in consultation today for bleeding from R thigh permcath site noted yesterday after HD session. Pt required permcath placement on 11/19 d/t infiltration of her L forearm AVF at HD. Dr Shannon attempted to place it in R IJ, however, was unable, so permcath was placed R femoral. Per pt, utilized at HD twice without problems, then noted blood trickling down her R leg later that day. Pt states was feeling a little dizzy yesterday, but feeling better today. Denies LITTLE, fever, chest pain, cough, abd pain, N/V, rest pain, other complaints. Hgb 6.8 today, pt being transfused. Pt not on anticoagulation, but PTT was over 100, with a normal PT. CT scan of RLE demonstrates edema, but no hematoma. Allergies Allergy/AdvReac Type Severity Reaction Status Date / Time ketorolac Allergy Intermediate HIVES Verified 11/24/19 22:08 (HOWEVER PATIENT TAKES ASA AT HOME W/O RXN) Home Medications Home Medications Medication Instructions Recorded Confirmed Type Prilosec OTC 20 mg PO QAM 08/29/18 11/24/19 History acetaminophen [Tylenol Extra 500 mg PO BID 08/29/18 11/24/19 History Strength] anastrozole [Arimidex] 1 mg PO QDD 08/29/18 11/24/19 History aspirin 81 mg PO HS 08/29/18 11/24/19 History diltiazem HCl 360 mg PO 4XWK 08/29/18 11/24/19 History levothyroxine [Synthroid] 75 mcg PO HS 08/29/18 11/24/19 History polyethylene glycol 3350 [Miralax] 17 g PO DAILY PRN 08/29/18 11/24/19 History sertraline [Zoloft] 25 mg PO QPM 08/29/18 11/24/19 History simvastatin [Zocor] 20 mg PO HS 08/29/18 11/24/19 History Ocuvite with Lutein 1 tab PO BID 12/25/18 11/24/19 History glucosamine sulfate [Glucosamine] 500 mg PO QDD 12/25/18 11/24/19 History sevelamer carbonate [Renvela] 1,600 mg PO TIDM 12/25/18 11/24/19 History calcium carbonate [Calcium 500] 500 mg PO DAILY 11/20/19 11/24/19 History Advair Diskus 1 puff INHALATION BID 11/24/19 11/24/19 History cinacalcet 30 mg PO 3XWK 11/24/19 11/24/19 History ipratropium-albuterol [Combivent 1 puff INHALATION QID 11/24/19 11/24/19 History Respimat] Patient History Medical History Anemia Anemia Breast cancer (Acute) left diagnosed in 2006/right in 2017--sx, radiation Chronic depression (Acute) End stage renal disease on dialysis sun-sun-sun - [facility] GERD (gastroesophageal reflux disease) Hearing deficit History of colon polyps HTN (hypertension) (Acute) Hyperlipidemia (Acute) Hypothyroidism Thyroid disease (Acute) Surgical History History of bilateral cataract extraction History of colonoscopy History of dilatation and curettage History of ear surgery right History of esophagogastroduodenoscopy (EGD) History of eye surgery right eye after cataract History of left breast biopsy malignant History of lumpectomy of left breast History of lumpectomy of right breast History of right breast biopsy malignant History of surgery removal of perm cath 07/03/19 [facility] History of tooth extraction History of total left hip replacement History of total right hip replacement x2 Status post creation of arteriovenous fistula (Acute) left upper arm. MWF dialysis. Status post partial resection of colon (Acute) d/t large polyp Family History Father Family hx of colon cancer Other No family history of adverse response to anesthesia Social History Preferred Language: Hebrew Communication Ability: Effective Construction Tech Required: No Beliefs That Will Affect Care: None marital status: / Current Living Situation: Alone Feels Safe at Home: Yes Smoking Status: Never smoker Second Hand Exposure: No ; Hx Alcohol Use: No Hx Substance Use: No Review of Systems Review of Systems: All systems reviewed & are unremarkable except as noted in HPI & below Physical Exam Constitutional: WD/WN, vitals as above Eyes: PERRL, conjunctivae normal, anicteric sclerae ENMT: external ear and nose normal, oropharynx normal Ears: + hearing impai rment (wears hearing aid) Neck: trachea midline, no thyromegaly + abnormal visual inspection (old, soft ecchymosis noted R chest wall/neck) Respiratory: normal respiratory effort, lungs clear to auscultation Cardiovascular: Rate/Rhythm: regular rate and regular rhythm Vessels: posterior tibial pulses present, dorsalis pedis pulses present, brachial pulses present and radial pulses present; + abnormal peripheral pulses Extremities: + edema (R thigh +soft ecchymosis, extensive. no active bleeding), + vascular access device and + AV fistula (L forearm, +thrill/bruit, +significant ecchymosis noted) Gastrointestinal (Abdomen): normal bowel sounds, soft, nontender, no hepatosplenomegaly Musculoskeletal: no cyanosis or clubbing, extremities motor strength 5/5 Neurologic: moves all extremities; no focal motor deficits and not confused Psychiatric: A+Ox3, euthymic affect Results & Data Vital Signs (Past 12 Hours) Vital Signs Temp Pulse Pulse Pulse Resp BP BP 11/25/19 09:25 36.8 C 72 18 133/71 11/25/19 08:55 36.8 C 72 18 133/70 11/25/19 08:25 36.8 C 73 18 134/71 11/25/19 08:10 36.9 C 74 18 133/67 11/25/19 07:55 36.9 C 75 18 117/61 11/25/19 06:35 36.9 C 73 19 117/66 11/25/19 03:57 37.1 C 72 19 111/57 L 11/25/19 01:12 36.7 C 72 18 132/72 11/25/19 01:10 36.7 C 72 18 132/72 11/25/19 00:37 72 11/25/19 00:12 37.0 C 65 23 118/57 L 11/24/19 23:42 36.6 C 67 22 99/48 L 11/24/19 23:27 37.1 C 69 26 H 100/48 L 11/24/19 23:07 36.9 C 71 22 108/52 L 11/24/19 22:47 72 16 126/61 11/24/19 22:00 67 20 129/57 L Pulse Ox 11/25/19 09:25 94 11/25/19 08:55 94 11/25/19 08:25 95 11/25/19 08:10 93 11/25/19 07:55 92 11/25/19 06:35 93 11/25/19 03:57 92 11/25/19 01:12 96 11/25/19 01:10 96 11/25/19 00:37 11/25/19 00:12 97 11/24/19 23:42 98 11/24/19 23:27 97 11/24/19 23:07 97 11/24/19 22:47 97 11/24/19 22:00 98
[2019-11-25 13:59] LABS: Hematocrit (blood only) 26.7 % (37-47); Hemoglobin 8.4 g/dL (12.0-16.0)
[2019-11-25] MEDS ORDERED: DESMOPRESSIN ACETATE 30 MCG in SODIUM CHLORIDE 0.9% 50 ML IV ONE (14:00)
--- NOTE | 2019-11-25 14:25 | Electrocardiogram Report ---
Test Reason : Blood Pressure : / mmHG Vent. Rate : 073 BPM Atrial Rate : 073 BPM P-R Int : 172 ms QRS Dur : 110 ms QT Int : 404 ms P-R-T Axes : 069 -08 101 degrees QTc Int : 445 ms Normal sinus rhythm When compared with ECG of 11-SEP-2019 14:54, Inverted T waves have replaced nonspecific T wave abnormality in Lateral leads Confirmed by Vaughn Cotter ([id number]) on 11/25/2019 2:25:13 PM Referred By: REFERRED SELF Confirmed By:Jorge Cotter
[2019-11-25] MEDS ORDERED: ANASTROZOLE 1 MG TAB PO SCH (16:30)
[2019-11-25] MEDS ORDERED: GLUCOSAMINE SULFATE 500 MG CAP PO SCH (16:30)
--- NOTE | 2019-11-25 16:54 | Hospitalist Progress Note ---
Date of Service November 25, 2019 Assessment & Plan (1) Dialysis AV fistula malfunction: had left lower ext Perm cath placed by Dr Shannon recently presented with ongoing bleeding form Perm cath area bleeding has stopped after pressure bandage no area of hemotoma noted diffuse surrounding eccymosis appreciate input from Vascular surgery no change of perm cath or procedure needed as bleeding has stopped ACUTE BLOOD LOSS ANEMIA : due to bleeding from Perm Cath site required 2 units of PRBC tx ( presented with hb 6.4 ) bleeding has resolved follow H&H pt is not on any anticoagulation or antiplatelets ordered for DDAVP for possible platelet malfunction due to Uremia /ESRD ESRD ON CHRONIC HD : appreciate input from Nephrology no indication for emegernet HD pt will cont with her chronic HD regimen FULL CODE DVT PROPHYLASXIS SCD AND TEDS DISPOSIITON ; obseve overnight on tele to assess evidence of recurrenced of bleed Admission and Anticipated Discharge Date Admission Date: November 24, 2019 Subjective pt denies of any pain or discomfort no further bleeding from left lower ext dialysis catheter site reports of feeling fine no fever or chills no SOB or cough Review of Systems Review of Systems: All systems reviewed & are unremarkable except as noted in HPI & below Physical Exam Constitutional: WD/WN, vitals as above no acute distress Eyes: PERRL, conjunctivae normal, anicteric sclerae ENMT: external ear and nose normal, oropharynx normal Neck: trachea midline, no thyromegaly Respiratory: normal respiratory effort, lungs clear to auscultation Cardiovascular: RRR, no murmur, no edema Gastrointestinal (Abdomen): normal bowel sounds, soft, nontender, no hepatosplenomegaly Musculoskeletal: left upper lower ext perm cath present no active bleeding large area of diffuse ecchymosis Skin: large area of eccymosis on left upper thigh area Neurologic: PERRL, EOMI, accommodation nl, no face palsy, no dysarthria Psychiatric: A+Ox3, euthymic affect Results & Data ([facility]) Vital Signs (Past 12 Hours) Vital Signs Temp Pulse Pulse Resp BP BP Pulse Ox 11/25/19 14:57 36.8 C 75 18 98/51 L 93 11/25/19 11:25 36.6 C 71 18 138/68 94 11/25/19 10:25 36.5 C 70 20 131/70 95 11/25/19 09:25 36.8 C 72 18 133/71 94 11/25/19 08:55 36.8 C 72 18 133/70 94 11/25/19 08:25 36.8 C 73 18 134/71 95 11/25/19 08:10 36.9 C 74 18 133/67 93 11/25/19 07:55 36.9 C 75 18 117/61 92 11/25/19 06:35 36.9 C 73 19 117/66 93
[2019-11-25] MEDS: IPRATROPIUM BROMIDE/ALBUTEROL respimat INH INH SCH ×2 (17:22→21:07)
[2019-11-25] MEDS ORDERED: SERTRALINE HCL 50 MG TABLET PO SCH (21:00)
[2019-11-25] MEDS ORDERED: SIMVASTATIN 20 MG TAB PO SCH (21:00)
[2019-11-26] MEDS: LEVOTHYROXINE SODIUM 75 MCG TABLET PO SCH (05:52)
[2019-11-26 06:12] LABS: Hematocrit (blood only) 26.1 % (37-47); Hemoglobin 8.1 g/dL (12.0-16.0); Mean Corpuscular Hemoglobin 31.2 pg (25-34); Mean Corpuscular Volume 100.4 fL (80-100); Mean Platelet Volume 9.6 fL (7.4-10.4); Platelet Count 163 K/uL (130-400); RDW Coefficient of Variation 19.2 % (11.5-14.5); RDW Standard Deviation 67.7 fL (36.4-46.3); White Blood Count 4.05 K/uL (4.8-10.8)
[2019-11-26] MEDS ORDERED: EPOETIN ALFA 10,000 UNITS/ML VIAL IV SCH (07:00)
[2019-11-26] MEDS ORDERED: SODIUM CHLORIDE 0.9% 1000ML 1,000 ML IV PRN (07:00)
[2019-11-26 07:08] LABS: BUN Creatinine Ratio 7.2 (10-20); Creatinine Clr Calc Pharmacy 5.1 ml/min; Est GFR (African American) 4.4; Est GFR (Non-African American) 3.8; Potassium 4.3 mmol/L (3.5-5.1)
[2019-11-26] MEDS: PANTOprazole 40 MG TAB PO SCH (08:10)
[2019-11-26] MEDS: CEROVITE ADV FORMULA TAB PO SCH (08:11)
[2019-11-26] MEDS: CALCIUM CARBONATE 1250MG TAB PO SCH (08:11)
[2019-11-26] MEDS: SEVELAMER HCL 800 MG TABLET PO SCH ×2 (08:11→12:00)
[2019-11-26] MEDS: IPRATROPIUM BROMIDE/ALBUTEROL respimat INH INH SCH ×2 (08:12→13:28)
[2019-11-26] MEDS: ACETAMINOPHEN 500 MG TAB PO SCH (08:12)
[2019-11-26 08:49] LABS: Hepatitis B Surface Antibody Immune
[2019-11-26 09:00] LABS: Hepatitis B Surface Antigen Neg (Neg)
[2019-11-26] MEDS ORDERED: FLUTICASONE/VILANTEROL 200/25MCG 14 PUFFS/INHALER INH SCH (09:00)
--- NOTE | 2019-11-26 09:19 | Nephrology Progress Note ---
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 HD MWF [facility] (3.5hr F- 160NR 2K 2Ca 1Mg Na 140 HCO3 34) -- Will provide heparin free HD this morning. HD RN notified. Orders have been entered into the EMR -- Recommend low K/dialysis diet, continue home medications -- If no complications following HD, OK to discharge to home from Nephrology perspective. Please have patient resume MWF outpatient HD at [facility] (2) Anemia: -- No active bleeding from femoral dialysis catheter site -- Recommend transfusing to maintain Hgb > 8.0 -- Will hold heparin w/ dialysis and provide GAEL Subjective Ms. Amato was seen & examined in her hospital room this morning. Surgery removed the pressure bandage from her R femoral THC site yesterday. There has been no further bleeding. She voices no medical concerns. Review of Systems Constitutional: no fever and no chills Eyes: no problem reported Ear, Nose, Mouth, Throat: no problem reported Respiratory: no cough and no dyspnea Cardiovascular: no chest pain, no palpitations and no edema Gastrointestinal: no abdominal pain, no nausea, no vomiting and no diarrhea/loose stools Genitourinary: no dysuria and no hematuria Musculoskeletal: no back pain Integumentary: no rash Neurologic: no falls, no dizziness and no confusion Physical Exam Constitutional: + frail appearing; not in distress Eyes: PERRL, conjunctivae normal, anicteric sclerae ENMT: external ear and nose normal, oropharynx normal Neck: trachea midline, no thyromegaly Respiratory: normal respiratory effort, lungs clear to auscultation Cardiovascular: RRR, no murmur, no edema Gastrointestinal (Abdomen): normal bowel sounds, soft, nontender, no hepatosplenomegaly Musculoskeletal: Extremities: no cyanosis Skin: no rashes, warm and dry Neurologic: awake; not confused Results & Data Vital Signs (Past 12 Hours) Vital Signs Temp Pulse Pulse Resp BP Pulse Ox 11/26/19 07:24 61 11/26/19 07:21 37.1 C 66 18 135/76 94 11/26/19 04:18 36.7 C 68 22 155/74 H 93 11/25/19 23:09 36.8 C 64 18 126/60 95 11/25/19 22:20 64 Laboratory Results Laboratory Results - last 24 hr 11/24/19 11/25/19 11/26/19 20:47 13:44 05:43 WBC RBC Hgb 8.4 L Hct 26.7 L MCV MCH MCHC RDW Std Deviation RDW Coeff of Derek Plt Count MPV Sodium 139 Potassium 4.3 Chloride 104 Carbon Dioxide 27 Anion Gap 8.0 BUN 63 H D Creatinine 8.78 H* D Est Cr Clr Drug Dosing 5.1 Est GFR ( Amer) 4.4 Est GFR (Non-Af Amer) 3.8 BUN/Creatinine Ratio 7.2 L Glucose 101 H Calcium 9.0 Hep Bs Antigen Hep Bs Antibody Hep Bs Antibody, Quant Crossmatch See Detail 11/26/19 11/26/19 05:43 08:02 WBC 4.05 L RBC 2.60 L Hgb 8.1 L Hct 26.1 L MCV 100.4 H MCH 31.2 MCHC 31.0 L RDW Std Deviation 67.7 H RDW Coeff of Derek 19.2 H Plt Count 163 MPV 9.6 Sodium Potassium Chloride Carbon Dioxide Anion Gap BUN Creatinine Est Cr Clr Drug Dosing Est GFR ( Amer) Est GFR (Non-Af Amer) BUN/Creatinine Ratio Glucose Calcium Hep Bs Antigen Neg Hep Bs Antibody Immune Hep Bs Antibody, Quant 551.60 Crossmatch PG Care Time/CCT Total # of Minutes Spent Total Time Spent with Patient: Total time spent is greater than 50% in coordination of care (as documented) at patient's floor/unit and/or counseling patient: Coding Level of Care Code 21973 Subseq Hosp Care Lvl 3 Diagnoses ESRD (end stage renal disease) on dialysis N18.6; Z99.2 Anemia D64.9
--- NOTE | 2019-11-26 10:36 | Hospitalist Progress Note ---
Date of Service November 26, 2019 Assessment & Plan (1) Dialysis AV fistula malfunction: No further bleeding episode from right femur PermCath site since admission appreciate input from Vascular surgery no change of perm cath or procedure needed as bleeding has stopped ACUTE BLOOD LOSS ANEMIA : due to bleeding from Perm Cath site required 2 units of PRBC tx ( presented with hb 6.4 ) bleeding has resolved Hemoglobin stable at 8 posttransfusion, no other bleeding episode since admiss ion pt is not on any anticoagulation or antiplatelets Given 1 dose of DDAVP ESRD ON CHRONIC HD : appreciate input from Nephrology Patient will get her scheduled dialysis treatment today, To be discharged home after dialysis FULL CODE DVT PROPHYLASXIS SCD AND TEDS DISPOSIITON ; Patient will be discharged home today Admission and Anticipated Discharge Date Admission Date: November 25, 2019 Subjective Did not had any bleedings episode from the right femoral PermCath site Is fine, no pain or discomfort no fever or chills Getting on dialysis today, No active bleeding noted at PermCath site Patient will be discharged home today after dialysis treatment Review of Systems Review of Systems: All systems reviewed & are unremarkable except as noted in HPI & below Physical Exam Constitutional: WD/WN, vitals as above no acute distress Eyes: PERRL, conjunctivae normal, anicteric sclerae ENMT: external ear and nose normal, oropharynx normal Neck: trachea midline, no thyromegaly Respiratory: normal respiratory effort, lungs clear to auscultation Cardiovascular: RRR, no murmur, no edema Gastrointestinal (Abdomen): normal bowel sounds, soft, nontender, no hepatosplenomegaly Musculoskeletal: Femoral PermCath site present, surrounding skin ecchymosis, no active bleeding, no swelling, no tenderness Neurologic: PERRL, EOMI, accommodation nl, no face palsy, no dysarthria Psychiatric: A+Ox3, euthymic affect Results & Data ([facility]) Vital Signs (Past 12 Hours) Vital Signs Temp Pulse Pulse Pulse Resp BP BP 11/26/19 10:20 58 L 110/58 L 11/26/19 10:00 61 105/65 11/26/19 09:40 64 111/71 11/26/19 09:27 36.8 C 68 11/26/19 09:20 65 132/72 11/26/19 09:15 68 136/76 11/26/19 07:24 61 11/26/19 07:21 37.1 C 66 18 135/76 11/26/19 04:18 36.7 C 68 22 155/74 H 11/25/19 23:09 36.8 C 64 18 126/60 Pulse Ox 11/26/19 10:20 11/26/19 10:00 11/26/19 09:40 11/26/19 09:27 11/26/19 09:20 11/26/19 09:15 11/26/19 07:24 11/26/19 07:21 94 11/26/19 04:18 93 11/25/19 23:09 95
--- NOTE | 2019-11-26 10:38 | Discharge Summary ---
Date of Service November 26, 2019 Admission HPI Per Admitting Provider DICTATED BY: Mohan Mcpherson MD DATE OF ADMISSION: 11/24/2019 CHIEF COMPLAINT: Bleeding from the cath site. 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 The patient was getting dialysis from the graft and fistula on the left upper extremity, but this was not working,.So was tried PermCath on the right side of the chest, but it did not work . She is status post left femoral PermCath last . She had dialysis after that and last dialysis was today morning. After dialysis, she noticed some blood coming from the cath site. It was not stopping and she was feeling a little dizzy and lightheaded and also some shortness of breath, so she came in. When she came in, she was hypotensive. Vascular surgery was notified and advised for pressure banding which was placed in and initial plan was to send her home . But because of boderline low blood pressure and dizziness and hemoglobin came back at 6.7 whereas the baseline hemoglobin was 10.2 in September was decided to observe in the hospital.. Er ordered a unit of PRBCs and plan to keep her in the hospital for further monitoring. She still has some mild woozing from the cath site. She has some chronic cough. She has some runny nose on and off, some shortness of breath on and off. Denies any chest pain, no fevers, no headache, no blurred vision. Somewhat hard of hearing. No sore throat, no difficulty swallowing. Appetite is okay. No nausea, no abdominal pain. She is somewhat constipated. Denies any blood in her stools or black stools, but says she has hemorrhoids and they act up sometimes.. She makes a small amount of urine. No swelling in the legs. She is independent, but since her procedure, she is walking with a walker. She lives alone, but her daughter living with her since the procedure last . Principal Diagnosis Bleeding at PermCath/dialysis access site, resolved Acute posthemorrhagic anemia, status post blood transfusion, stable End-stage renal disease on chronic dialysis Discharge Exam Constitutional WD/WN, vitals as above no acute distress Eyes PERRL, conjunctivae normal, anicteric sclerae ENMT external ear and nose normal, oropharynx normal Neck trachea midline, no thyromegaly Respiratory normal respiratory effort, lungs clear to auscultation Cardiovascular RRR, no murmur, no edema Gastrointestinal (Abdomen) normal bowel sounds, soft, nontender, no hepatosplenomegaly Neurologic PERRL, EOMI, accommodation nl, no face palsy, no dysarthria Psychiatric A+Ox3, euthymic affect Discharge Data Allergies Allergy/AdvReac Type Severity Reaction Status Date / Time ketorolac Allergy Intermediate HIVES Verified 11/24/19 22:08 (HOWEVER PATIENT TAKES ASA AT HOME W/O RXN) Consultations 11/24/19 21:39 ED Decision to Admit Stat 11/25/19 00:40 Consult Case Management - Discharge Planning Routine 11/25/19 08:00 Consult Nephrology Routine Consult Vascular Surgery Routine Ordered Studies 11/24/19 20:31 CT femur RT wo con Stat Hospital Course (1) Dialysis AV fistula malfunction: No further bleeding episode from right femur PermCath site since admission appreciate input from Vascular surgery no change of perm cath or procedure needed as bleeding has stopped ACUTE BLOOD LOSS ANEMIA : due to bleeding from Perm Cath site required 2 units of PRBC tx ( presented with hb 6.4 ) bleeding has resolved Hemoglobin stable at 8 posttransfusion, no other bleeding episode since admission pt is not on any anticoagulation or antiplatelets Given 1 dose of DDAVP ESRD ON CHRONIC HD : appreciate input from Nephrology Patient will get her scheduled dialysis treatment today, To be discharged home after dialysis FULL CODE DVT PROPHYLASXIS SCD AND TEDS DISPOSIITON ; Patient will be discharged home today Total Time Total Time Spent Total Time Spent (In Minutes): 35 minutes Total Time Includes: Examination of the Patient, Discharge Planning, Medication Reconciliation and Communication With Other Providers Discharge Plan Discharge Items Patient Disposition: Home - Self-Care Reason For Visit: BLEEDING AT CATH SITE Discharge Diagnosis: Bleeding at PermCath/dialysis access site, resolved Acute posthemorrhagic anemia, status post blood transfusion, stable End-stage renal disease on chronic dialysis Condition on Discharge: Good Activity: Resume your previous activity Non-emergency contact: Primary Care Provider Call non-emergency contact if: you have any medication questions Follow-up/Referrals: Sandra Bar MD [Primary Care Provider] - 12/02/19 11:00 am () Diet: Dialysis Renal and Heart Healthy Addtl Attending Provider Instructions: Coronavirus disease 2019 (COVID-19) is a virus that causes a respiratory illness. It is caused by a coronavirus called 2019 novel coronavirus (2019- nCoV). There are many types of coronavirus. Coronaviruses are a very common cause of bronchitis. They may sometimes cause lung infection(pneumonia). Symptoms can range from mild to severe respiratory illness. These viruses are also foundin some animals. COVID-19 was first found in people in [facility], in late 2019. In 2020, several cases of COVID-19 have been confirmed in the [place] Public health officials are working to find the source. How the virus spreads is not yet fully known. It may be spread through droplets of fluid that a person coughs or sneezes into the air. It may be spread if you touch a surface with virus on it, such as a handle or object, and then touch your mouth. What are the symptoms of COVID-19? Some people have no symptoms or mild symptoms. Symptoms may appear 2 to 14 days after contact with the virus. Symptoms can include: Fever Coughing Trouble breathing What are possible complications from COVID-19? In many cases, this virus can cause infection (pneumonia) in both lungs. In some cases, this can cause . How is COVID-19 diagnosed? Your healthcare provider will ask about your symptoms. He or she will also ask about your recent travel and contact with sick people. Testing for the virus is only done through the CDC. If yourhealthcare provider thinks you may have COVID- 19, he or she will work with your local health department and the CDC on testing. Follow all instructions from your healthcare provider. COVID-19 is diagnosed by: Nasal and throat swab. A cotton-tipped swab is wiped inside your nose or throat. This is done to check for viruses in your nasal mucus. Sputum culture. A small sample of mucus coughed from your lungs (sputum) is collected if you have a cough. It is checked for the virus. How is COVID-19 treated? There is currently no medicine to treat the virus. Treatment is done to help your body while it fights the virus. This is known as supportive care. Supportive care may include: Pain medicine. These include acetaminophen and ibuprofen. They are used to help ease pain and reduce fever. Bed rest. This helps your body fight the illness. For severe illness, you may need to stay in the hospital. Care during severe illness may include: IV (intravenous) fluids.These are given through a vein to help keep your body hydrated. Oxygen. Supplemental oxygen or ventilation with a breathing machine (ventilator) may be given. This is done to keep enough oxygen in your body. Are you at risk for COVID-19? If youve been to a place where people have been sick with this virus, you are at risk for infection. You are at risk if you: Recently traveled to an affected area Had contact with a sick person who recently traveled to this area Had contact with a person who was diagnosed with COVID-19 How can COVID-19 be prevented? There is no vaccine yet. The best prevention is to not have contact with the virus. The CDC advises that people should not travel to areas where there are COVID-19 outbreaks right now for any reason that is not urgent. To help prevent spreading the infection, wash your hands often, or use an alcohol-basedhand denture model maker. If you are in an area with COVID-19: Wash your hands often. Or use an alcohol-based hand denture model maker often. Only touch your eyes, nose, or mouth with clean hands. Dont have contact with people who are sick. Follow local instructions about being in public. For example, you may be told to not use public transport for a period of time. Stay away from markets that have live or animals. Wash your hands after touching any animals. Don't touch animals that may be sick. Dont share eating or drinking tools with sick people. Dont kiss someone who is sick. Clean surfaces often with disinfectant. If you were in an area with COVID-19 in the last 14 days: Call your healthcare provider. He or she can talk with local health staff to see what action may be needed. Follow all instructions from your provider. Take your temperature every morning and evening for at least 14 days. This is to check for fever. Keep a record of the readings. Keep watch for symptoms of the virus. Tell your provider right away if you have symptoms. If you were in an area with COVID-19 and have a fever or other symptoms: Dont panic. Keep in mind that other illnesses can cause similar symptoms. Stay away from work, school, and public places. Limit physical contact with family members. Don't kiss anyone or share eating or drinking utensils. Clean surfaces you touch with disinfectant. This is to help prevent the virus from spreading. Call your healthcare provider. Explain that you have been exposed to COVID-19 and have symptoms. Do this before going to any hospital. Wait for instructions. Keep in mind that healthcare staff may wear protective equipment such as mas ks, gowns, gloves, and eye protection. You may be put in a separate room. This is to prevent the possible virus from spreading. Tell the healthcare staff about recent travel. This includes local travel on public transport. Staff may need to find other people you have been in contact with. Follow all instructions the healthcare staff give you. If you have been diagnosed with COVID-19 Follow all instructions from your healthcare provider. Dont leave your home, except to get medical care. Call your healthcare providers office before going. They can prepare and give you instructions. This will help prevent the virus from spreading. Dont go to work, school, or public areas. Dont use public transport or taxis. Stay away from other people in your home. Have them wear face masks around you. Dont share household items or food. Wear a face mask if you can. This includes at home or in a medical facility. Cover your face with a tissue when you cough or sneeze. Throw the tissue away. Wash your hands. Wash your hands often. Caregivers should: Follow all instructions from healthcare staff. Wear a face mask and protective clothing as advised. Wash hands often. Keep track of the sick persons symptoms. Clean surfaces, fabrics, and laundry thoroughly. Keep other people away from the sick person. When to call your healthcare provider Call your healthcare provider: If youve recently traveled and have symptoms If you have been diagnosed with COVID-19 and your symptoms are worse To learn more To find out more about COVID-19, visit the CDC website at www.cdc.gov/coronavirus/2019-ncov/index.html. [employer]. [address] [place] [address], [place] [address]. All rights reserved. This information is not intended as a substitute for professional medical care. Always follow your healthcare professional's instructions. This information has been adapted from [employer] Pending Studies at Discharge: No Stand-Alone Forms: [facility], Smoking Cessation Medications and DC Order Prescriptions: Continued glucosamine sulfate [Glucosamine] 500 mg Tablet 500 mg PO QDD RF: 0 Ocuvite with Lutein 1,000 unit-200 mg-60 unit-2 mg Tablet 1 tab PO BID RF: 0 sevelamer carbonate [Renvela] 800 mg Tablet 1,600 mg PO TIDM RF: 0 calcium carbonate [Calcium 500] 500 mg calcium (1,250 mg) Tablet 500 mg PO DAILY RF: 0 anastrozole [Arimidex] 1 mg Tablet 1 mg PO QDD RF: 0 polyethylene glycol 3350 [Miralax] 17 gram Powder In Packet 17 g PO DAILY PRN (Reason: Constipation) RF: 0 acetaminophen [Tylenol Extra Strength] 500 mg Tablet 500 mg PO BID RF: 0 levothyroxine [Synthroid] 75 mcg Tablet 75 mcg PO HS RF: 0 simvastatin [Zocor] 20 mg Tablet 20 mg PO HS RF: 0 sertraline [Zoloft] 25 mg Tablet 25 mg PO QPM RF: 0 aspirin 81 mg Tablet,Chewable 81 mg PO HS RF: 0 Prilosec OTC 20 mg Tablet,Delayed Release (Dr/Ec) 20 mg PO QAM RF: 0 fluticasone propion-salmeterol [Advair Diskus] 250-50 mcg/dose Blister With Device 1 inh INHALATION BID RF: 0 cinacalcet 30 mg tablet 30 mg PO 3XWK RF: 0 Combivent Respimat 20-100 mcg/actuation mist 1 puff INHALATION QID RF: 0 diltiazem HCl 180 mg capsule,extended release 24hr 180 mg PO 4XWK RF: 0 Discharge Orders: Discharge Order (Routine); Ordered 11/26/19 Ordered By: Soha Garcia Admission Data Admit Date/Time: 11/25/19 17:18 Attending Provider: Soha Garcia Admit Provider: Soha Garcia Primary Care Provider: Sandra Bar Other Providers: Destin Price ; Dejan Shannon ; Mohan Mcpherson
[2019-11-27] MEDS ORDERED: dilTIAZem ER 180 MG CAPCR PO SCH (09:00)
== END 2019-11-26 13:18 | disposition home or self-care (01) | DRG 314 ==
LOC: 2N 18:24 → ED 18:24 → 2N 11-25 00:12

== ENCOUNTER 2020-03-04 13:28 | Inpatient (IN) ==
--- NOTE | 2020-03-03 09:20 | Anesthesiology Consultation ---
Date of Service March 03, 2020 Assessment & Plan (1) Encounter for pre-operative examination: Chart Review Chart Review: Acceptable Risk for Surgery and Patient NOT seen in Pre Admission Testing Check PRP (due to dialysis) and CBC (due to anemia) stat AM of surgery Per nursing assessment 03/03/20, pt denies any recent travel. Resides in [facility]. Wears mask in public. No known Covid positive contacts or Covid related symptoms. Covid testing 03/01/20= negative Seen by vascular 01/08/20= ESRD on HD for possible steal syndrome of left hand. No plan at this time to do left radial artery ligation secondary to her not appearing to have significant symptoms from steal. Left AV Fistula 09/16/19= Done under MAC with PNB. No anesthesia issues noted History Surgery Operation Date: 03/04/20 07:00 Proposed Procedures p Right Distal Radius Open Reduction Internal Fixation, - Garo Willson M.D. s Right Possible Pinning Distal Radial Ulnar Joint - Garo Willson M.D. Height/Weight Height: 5 ft 4 in Weight: 74.843 kg Allergies Allergy/AdvReac Type Severity Reaction Status Date / Time ketorolac Allergy Intermediate HIVES Verified 03/03/20 13:07 (HOWEVER PATIENT TAKES ASA AT HOME W/O RXN) Medications Home Medications Medication Instructions Recorded Confirmed Last Taken anastrozole [Arimidex] 1 mg PO QDD 08/29/18 11/24/19 11/24/19 09:00 aspirin 81 mg PO HS 08/29/18 11/24/19 11/23/19 levothyroxine [Synthroid] 75 mcg PO HS 08/29/18 11/24/19 11/23/19 polyethylene glycol 3350 [Miralax] 17 g PO DAILY PRN 08/29/18 11/24/19 11/19/19 18:00 sertraline [Zoloft] 25 mg PO QPM 08/29/18 11/24/19 11/23/19 simvastatin [Zocor] 20 mg PO HS 08/29/18 11/24/19 11/23/19 Ocuvite with Lutein 1 tab PO BID 12/25/18 11/24/19 11/19/19 18:00 glucosamine sulfate [Glucosamine] 500 mg PO QDD 12/25/18 11/24/19 11/19/19 18:00 sevelamer carbonate [Renvela] 1,600 mg PO TIDM 12/25/18 11/24/19 11/24/19 09:00 calcium carbonate [Calcium 500] 500 mg PO DAILY 11/20/19 11/24/19 11/19/19 05:30 Combivent Respimat 1 puff INHALATION QID 11/24/19 11/24/19 Unknown cinacalcet 30 mg PO 3XWK 11/24/19 11/24/19 Unknown fluticasone propion-salmeterol 1 inh INHALATION BID 11/24/19 11/24/19 Unknown [Advair Diskus] diltiazem HCl 180 mg PO 4XWK 11/25/19 11/25/19 Unknown acetaminophen 325 mg PO TID 03/03/20 03/03/20 Unknown omeprazole 20 mg PO QAM 03/03/20 03/03/20 Unknown vit B,C-iron sja-[id number]-zinc ox 1 tab PO QPM 03/03/20 03/03/20 Unknown [ProRenal] Past Medical History Medical History Anemia Breast cancer left diagnosed in 2006/right in 2017--sx, radiation Chronic depression Chronic low back pain End stage renal disease on dialysis sun-sun-sun - [facility] GERD (gastroesophageal reflux disease) Hearing deficit History of colon polyps HTN (hypertension) Hyperlipidemia Hypothyroidism Secondary hyperparathyroidism (05/27/12) Past Family History Family History Father Family hx of colon cancer Other No family history of adverse response to anesthesia Past Surgical History Surgical History (Updated 03/03/20 @ 15:20 by Lissette Taylor PA-C) History of bilateral cataract extraction History of colonoscopy History of dilatation and curettage History of ear surgery right History of esophagogastroduodenoscopy (EGD) History of eye surgery right eye after cataract History of left breast biopsy malignant History of lumpectomy of left breast History of lumpectomy of right breast History of right breast biopsy History of surgery removal of perm cath 07/03/19 [facility] History of tooth extraction History of total left hip replacement History of total right hip replacement x2 Status post creation of arteriovenous fistula left upper arm. MWF dialysis. Status post partial resection of colon d/t large polyp Social History Smoking Status: Never smoker Hx Alcohol Use: No Hx Substance Use: No substance use type: does not use Testing Laboratory Results Laboratory Tests 03/02/20 03/02/20 03/02/20 14:50 14:50 14:50 WBC 3.97 L Hgb 8.5 L Hct 27.3 L Plt Count 156 PT 11.0 INR 1.0 APTT 23.7 Sodium 139 Potassium 3.9 Chloride 103 Carbon Dioxide 29 BUN 31 H Creatinine 6.28 H* Glucose 83 Electrocardiogram Date: 03/01/20 Findings: + NSR @ (75) Nonspecific T wave abnormality in lateral leads. Compared to EKG from November 24, 2019- no significant change per cardio. Chest X-Ray Date: 09/11/19 No pneumothorax. No pleural effusions. Surgical clips again noted within the right breast. The heart is top normal in size. No evidence for pulmonary edema. No new focal lung consolidations to suggest pneumonia. Nodular focus of in creased density within the right lung base appears to be due to an old, healed fracture within the right anterior rib. Wedge-shaped density anteriorly on the lateral view likely represents prominent mediastinal fat. Small right basilar linear densities favor scarring or subsegmental atelectasis. This is also unchanged. There is a vascular stent within the left axilla.
--- NOTE | 2020-03-03 13:29 | History & Physical Report ---
Date of Service March 03, 2020 Assessment & Plan (1) Closed fracture of distal end of right radius with ulna: She has a comminuted, significantly displaced, intra-articular right distal radius fracture. This will require ORIF for optimal outcome. She also appears to have a nondisplaced ulnar head fracture. This may require pinning of the DRUJ at the same setting. This was all explained in detail. Will need to do this at the main hospital due to her other medical issues. Risks, benefits, and alternatives of surgery were explained in detail. The surgical procedure, as well as postoperative recovery and rehabilitation, was also explained in detail. Risks include bleeding; infection; damage to surrounding structures such as nerves, blood vessels, and tendons that run in the area; persistent pain, numbness, weakness, or stiffness; nonunion; malunion; hardware failure; post-traumatic arthritis; painful prominent hardware requiring removal; or need for further surgery. She understands all of this and wishes to proceed with surgery. Preoperative workup was completed today, and informed consent was obtained. Encounter type: initial encounter Qualified Code(s): S52.501A - Unspecified fracture of the lower end of right radius, initial encounter for closed fracture; S52.601A - Unspecified fracture of lower end of right ulna, initial encounter for closed fracture Present on Admission?: Yes History of Present Illness Chief Complaint: Right wrist injury. Primary Care Provider: Sandra Bar MD Ms. Amato is an 79-year old female who injured her right wrist on February 27 during a mechanical ground-level fall. She denies any other significant injury other than her right wrist. Of note, she has kidney failure and is on dialysis. She has an arteriovenous fistula in her left forearm for hemodialysis access. Allergies Allergy/AdvReac Type Severity Reaction Status Date / Time ketorolac Allergy Intermediate HIVES Verified 03/03/20 13:07 (HOWEVER PATIENT TAKES ASA AT HOME W/O RXN) Home Medications Home Medications Medication Instructions Recorded Confirmed Type anastrozole [Arimidex] 1 mg PO QDD 08/29/18 03/03/20 History aspirin 81 mg PO HS 08/29/18 03/03/20 History levothyroxine [Synthroid] 75 mcg PO HS 08/29/18 03/03/20 History polyethylene glycol 3350 [Miralax] 17 g PO DAILY PRN 08/29/18 03/03/20 History sertraline [Zoloft] 25 mg PO QPM 08/29/18 03/03/20 History simvastatin [Zocor] 20 mg PO HS 08/29/18 03/03/20 History Ocuvite with Lutein 1 tab PO BID 12/25/18 03/03/20 History glucosamine sulfate [Glucosamine] 500 mg PO QDD 12/25/18 03/03/20 History sevelamer carbonate [Renvela] 1,600 mg PO TIDM 12/25/18 03/03/20 History calcium carbonate [Calcium 500] 500 mg PO DAILY 11/20/19 03/03/20 History Combivent Respimat 1 puff INHALATION QID 11/24/19 03/03/20 History cinacalcet 30 mg PO 3XWK 11/24/19 03/03/20 History fluticasone propion-salmeterol 1 inh INHALATION BID 11/24/19 03/03/20 History [Advair Diskus] diltiazem HCl 180 mg PO 4XWK 11/25/19 03/03/20 History acetaminophen 325 mg PO TID 03/03/20 03/03/20 History omeprazole 20 mg PO QAM 03/03/20 03/03/20 History vit B,C-iron poa-SA-N0-zinc ox 1 tab PO QPM 03/03/20 03/03/20 History [ProRenal] Past Med/Surg History Medical History (Updated 03/03/20 @ 13:26 by Garo Willson M.D.) Anemia Breast cancer left diagnosed in 2006/right in 2017--sx, radiation Chronic depression Chronic low back pain End stage renal disease on dialysis sun- - [facility] GERD (gastroesophageal reflux disease) Hearing deficit History of colon polyps HTN (hypertension) Hyperlipidemia Hypothyroidism Social History Preferred Language: Belarusian Communication Ability: Effective Retail Client Manager Required: No Beliefs That Will Affect Care: None marital status: / Current Living Situation: Alone Feels Safe at Home: Yes Smoking Status: Never smoker Second Hand Exposure: No ; Hx Alcohol Use: No Hx Substance Use: No Physical Exam Physical Exam: General: The patient appears well developed and well nourished. Awake, alert, and oriented x 3. Appropriate mood and affect. Normal gait and station. Normal coordination and balance. Skin: The skin over the right wrist shows no open wounds. Inspection/Palpation: Visual inspection reveals mild deformity across the wrist. There is moderate swelling and tenderness to palpation over the distal radius. Compartments are soft and compressible. Range of Motion: There is limited range of motion of the wrist due to pain. Stability: Ligamentous stability was not tested due to the known fracture. Strength: There is limited hand and wrist strength due to pain. Sensation: The patient reports no numbness in the hand. Motor and sensory function is intact in the median, ulnar, and radial nerve distributions. Vascular: Hand is warm and well perfused. No diffuse edema. Results & Data Diagnostic Findings X-rays obtained in the emergency room on February 28 were reviewed. They show a significantly displaced, comminuted, intra-articular distal radius fracture there is fairly severe dorsal displacement and angulation of the distal radial articular surface. There appears to be a separate dorsalulnar fracture fragment. There also appears to be a basically nondisplaced ulnar head fracture, but this is difficult to assess with the overlying severely displaced distal radius fracture. Incidentally noted is severe thumb basal joint arthritis.
[~2020-03-04 13:28] MED LIST changes: -ANAS1TAB59 PO; -ASPI-319 PO; -B-COTAB81 PO; +CEFAZOLIN 1000MG 1,000 MG/7.5 ML SYR IV SCH; -CEFAZOLIN 1000MG IV PUSH 7.5 ML IV SCH; -D5W AND 1/4NSS 1,000 ML IV SCH; -DILT-119 PO; -FENTANYL CITRATE INJ 50 MCG/1 ML 2 ML VIAL IV ONE; -FENTANYL CITRATE INJ 50 MCG/1 ML 2 ML VIAL ONE; -GLUC1TAB33 PO; -LDDP5 TD; -LEVO75TA PO; -LIDOCAINE HCL 1% 20 ML VIAL INJ ONE; -MIDAZOLAM HCL 1 MG/ML 2ML VIAL IV ONE; -MIDAZOLAM HCL 1 MG/ML 2ML VIAL ONE; -MRLP17X PO; -MULT-190 PO; -OPTIRAY 300 IV ONE; -PRLSR20 PO; -SERT25TA PO; -SEVE800T7 PO; -SIMV20TA2 PO; +SODIUM CHLORIDE 0.9% 1000ML IV SCH; -TYLOTC500 PO
[2020-03-04 14:16] LABS: Hematocrit (blood only) 26.4 % (37-47); Hemoglobin 8.5 g/dL (12.0-16.0); Mean Corpuscular Hemoglobin 32.2 pg (25-34); Mean Platelet Volume 9.6 fL (7.4-10.4); Platelet Count 155 K/uL (130-400); RDW Coefficient of Variation 16.3 % (11.5-14.5); RDW Standard Deviation 58.4 fL (36.4-46.3); Red Blood Count 2.64 M/uL (4.2-5.4); White Blood Count 3.77 K/uL (4.8-10.8)
[2020-03-04 14:17] LABS: Mean Corpuscular Hgb Conc 32.2 g/dL (32-36)
[2020-03-04 14:49] LABS: BUN Creatinine Ratio 5.9 (10-20); Calcium 8.9 mg/dl (8.5-10.1); Creatinine Clr Calc Pharmacy 6.9 ml/min; Est GFR (African American) 6.6; Est GFR (Non-African American) 5.7; Potassium 4.3 mmol/L (3.5-5.1)
[2020-03-04] MEDS ORDERED: fentaNYL citrate 100 MCG/2 ML VIAL ONE (15:12)
[2020-03-04] MEDS ORDERED: MIDAZOLAM HCL 1 MG/ML 2ML VIAL ONE (15:12)
[2020-03-04] MEDS ORDERED: fentaNYL citrate 100 MCG/2 ML VIAL IV PRN (15:16)
[2020-03-04] MEDS ORDERED: ePHEDrine sulfate 50 MG/ML AMP IV PRN (15:16)
[2020-03-04] MEDS ORDERED: ONDANSETRON INJ 2 MG/ML 2 ML VIAL IV PRN (15:16)
[2020-03-04] MEDS ORDERED: ATROPINE SULFATE 0.1 MG/ML 10ML SYR IV PRN (15:16)
--- NOTE | 2020-03-04 17:33 | History & Physical Bridge Note ---
Date of Service March 04, 2020 History & Physical Bridge Note I have examined the patient, reviewed the History & Physical and in the interval since the performance of the History & Physical I have noted the following changes of clinical significance: no changes noted
[2020-03-04] MEDS ORDERED: LIDOCAINE HCL 2% 2 ML VIAL/AMP(20MG/ML) INFIL ONE (18:33)
[2020-03-04] MEDS ORDERED: ePHEDrine sulfate 50 MG/ML AMP ONE (18:33)
[2020-03-04] MEDS ORDERED: ONDANSETRON INJ 2 MG/ML 2 ML VIAL ONE (18:33)
[2020-03-04] MEDS ORDERED: PROPOFOL IV EMULSION 10 MG/ML 20 ML VIAL IV ONE (18:33)
--- NOTE | 2020-03-04 19:26 | Post Operative Brief Note ---
Immediate Post Op Note v1 Date of Surgery March 04, 2020 Pre & Post Diagnosis Operation Date: 03/04/20 07:00 Pre-Op Diagnosis: Closed fracture of distal end of right radius with ulna Post-Op Diagnosis: Closed fracture of distal end of right radius with ulna I identified the patient and participated in the time-out.: Yes Procedure Operation Date: 03/04/20 07:00 Actual Procedures Open Reduction Internal Fixation Right Distal Radius(Right) - Garo Willson M.D. Surgeon Garo Willson Rotary Drill Operator Rip Frankel PA-C Estimated Blood Loss 30 Findings Consistent with Post-Op Diagnosis
--- NOTE | 2020-03-04 19:42 | Fluoroscopy Report ---
FL wrist RT 3V RTN CLINICAL HISTORY: RIGHT DISTAL RADIUS ORIF COMPARISON STUDY: Right wrist radiographs February 29, 2020 FLUOROSCOPY TIME: 1 minute and 34 seconds. FLUOROSCOPIC IMAGES: 3 FINDINGS: These images demonstrate plate and screw fixation of the distal right radial fracture. Hard price is intact. Fracture alignment has markedly improved and appears near anatomic. Distal right ulna r fracture is again noted. IMPRESSION: Fluoroscopy provided for internal fixation of the distal right radial fracture. ACT 112: Negative or not required by law. Electronically signed by: Obey Spear M.D. 03/04/2020 7:40 PM
--- NOTE | 2020-03-04 19:48 | Operative Report ---
Post Operative Report Pre & Post Diagnosis Operation Date: 03/04/20 07:00 Pre-Op Diagnosis: Right wrist comminuted, displaced, four-part intra-articular distal radius fracture with nondisplaced ulnar head fracture Post-Op Diagnosis: Right wrist comminuted, displaced, four-part intra-articular distal radius fracture with nondisplaced ulnar head fracture I identified the patient and participated in the time-out.: Yes Procedure Operation Date: 03/04/20 07:00 Actual Procedures Right wrist open reduction and internal fixation of comminuted, displaced, four- part intra-articular distal radius fracture with closed treatment of nondisplaced ulnar head fracture ([id number]) - Garo Willson M.D. Surgeon Garo Willson Geospatial Imagery Intelligence Analyst Rip Frankel PA-C Estimated Blood Loss 30 Findings Consistent with Post-Op Diagnosis Specimens None Anesthesia Type General Regional Complications none Disposition Disposition: Recovery Room Indications Ms. Amato is an 79-year old female who injured her right wrist during a mechanical ground-level fall. History, clinical exam, and imaging were consistent with the above diagnosis. Risks, benefits, and alternatives of surgery were explained in detail. The patient understood all this and wished to proceed. Description of Procedure Patient was identified in the preoperative holding area. Operative extremity was marked. Regional blockade was given by the Anesthesia Staff. Patient was then brought back to the operating room and general anesthesia was induced without complication. Appropriate weight-based dose of Ancef was infused intr avenously for antibiotic prophylaxis. Tourniquet was placed on the right upper arm. The arm was then prepped and draped in a standard sterile fashion using Chlorhexidine prep. The arm was then exsanguinated with an Esmarch, and the tourniquet was inflated. Longitudinal incision was made directly over the flexor carpi radialis. The superficial and deep portions of the FCR tendon sheath were then opened longitudinally, and Parona's space was entered. I then made an L-shaped incision along the distal and radial edge of the pronator quadratus and elevated this from radial to ulnar to expose the distal radius fracture site. This was a comminuted and severely displaced fracture. There were 2 sagittally oriented fracture lines extending up into the articular surface. Fracture fragments were mobilized, and reduction maneuver was then performed. K-wire was placed down the radial styloid and across the fracture site to temporarily hold the reduction during plate application. Severe osteoporosis was noted when inserting the K wire, and a second K wire was inserted for additional temporary fixation. After adequate reduction had been achieved, I then selected an appropriately sized plate from the [employer] 2.4mm variable-angle dual column distal radius volar locking plate set. The plate was then positioned appropriately on the distal radius and temporarily held in place with a K-wire. I verified proper fracture reduction and plate placement under fluoroscopic imaging. Once I was satisfied with this, I proceeded with screw placement. Locking screws were placed distally, and non-locking and locking screws were placed into the radial shaft where appropriate. I obtained final fluoroscopic imaging to ensure proper screw length and trajectory, as well as fracture reduction. At this point I then inspected the nondisplaced ulnar head fracture. I was able to palpate the ulnar head through the wound on the most at ulnar aspect of the plate. The ulnar head fracture did not seem to move at all with direct palpation, and this was verified under fluoroscopic imaging. I also performed a shuck test of the distal radial ulnar joint to ensure that it was stable. With this nondisplaced ulnar head fracture fracture, along with her severe osteoporosis that may compromise her distal radius fracture fixation, I decided that it would be prudent to treat the ulnar head fracture nonoperatively it rather than pinning or plating it; I decided that I would hold on early motion and plan for short arm casting for a few weeks. Tourniquet was then let down, and hemostasis was achieved with bipolar electrocautery. Wound was thoroughly irrigated with sterile saline, and was then closed in layers. Sterile dressings were then applied with Xeroform, sterile gauze, and sterile Webril, followed by a volar plaster splint and Golden wrap. The drapes were removed, the patient was awakened from general anesthesia and taken to the Post Anesthesia Care Unit in stable condition. There were no immediate complications to the procedure. I was present and scrubbed for the entire procedure. Due to the complex nature of the procedure, the entire surgery was performed with the operational assistance of Rip Frankel PA-C. The rehab care assistant, under direct supervision, was involved in the performance of all aspects of the surgical procedure including patient positioning, tissue retraction, hemostasis, wound closure, and dressing application. I attest to the content of the Intraoperative Record and any orders documented therein. Any exceptions are noted below.
--- NOTE | 2020-03-04 19:53 | Anesthesiology Progress Note ---
Date of Service March 04, 2020 Anesthesia Post Procedure Vital Signs Vital Signs: Temp Pulse Resp BP Pulse Ox 03/04/20 19:50 55 L 16 162/69 H 98 03/04/20 19:40 57 L 18 159/67 H 100 03/04/20 19:30 58 L 20 161/67 H 97 03/04/20 19:24 36 C L 58 L 16 163/74 H 98 03/04/20 13:55 37.0 C 72 20 175/79 H 95 Transfer of Care Handoff Completed per policy Notes Mental Status: alert / awake / arousable and participated in evaluation Patient Amnestic to Procedure: Yes Nausea / Vomiting: adequately controlled Pain: adequately controlled Airway Patency, RR, SpO2: stable & adequate BP & HR: stable & adequate Hydration State: stable & adequate Anesthetic Complications: no major complications apparent and Pt Satisfied with anesthetic care
--- NOTE | 2020-03-04 20:47 | Anesthesiology Progress Note ---
Date of Service March 04, 2020 Anesthesia Post Procedure Vital Signs Vital Signs: Temp Pulse Resp BP Pulse Ox 03/04/20 20:30 53 L 17 160/66 H 97 03/04/20 20:20 55 L 18 153/62 H 96 03/04/20 20:10 54 L 16 162/70 H 84 L 03/04/20 20:00 58 L 15 164/67 H 91 03/04/20 19:50 55 L 16 162/69 H 98 03/04/20 19:40 57 L 18 159/67 H 100 03/04/20 19:30 58 L 20 161/67 H 97 03/04/20 19:24 36 C L 58 L 16 163/74 H 98 03/04/20 13:55 37.0 C 72 20 175/79 H 95 Transfer of Care Handoff Completed per policy Notes Mental Status: alert / awake / arousable Patient Amnestic to Procedure: Yes Nausea / Vomiting: adequately controlled Pain: adequately controlled Airway Patency, RR, SpO2: see Notes below BP & HR: stable & adequate Hydration State: stable & adequate Anesthetic Complications: no major complications apparent and Pt Satisfied with anesthetic care Notes: The patient tolerated the procedure well. She is awake and comfortable in PACU. However, her SpO2 drops to the 80s when she is taken off oxygen. Her SpO2 is in the mid 90s when on 2 L NC oxygen. Since the patient is due for dialysis at 0600 tomorrow, medicine will follow her overnight. I spoke with Dr. Ruth who would like her to be on telemetry and will arrange for her dialysis tomorrow. Dr. Willson is aware.
[2020-03-04] MEDS ORDERED: ALBUT/IPRATROP 3MG/0.5MG NEB 3 ML VIAL NEB PRN (21:04)
--- NOTE | 2020-03-04 21:11 | Hospitalist Consultation ---
Date of Consultation March 04, 2020 History of Present Illness Attending Physician: Garo Willson Allergies Allergy/AdvReac Type Severity Reaction Status Date / Time ketorolac Allergy Intermediate HIVES Verified 03/04/20 14:10 (HOWEVER PATIENT TAKES ASA AT HOME W/O RXN) Home Medications Home Medications Medication Instructions Recorded Confirmed Type anastrozole [Arimidex] 1 mg PO QDD 08/29/18 03/04/20 History aspirin 81 mg PO HS 08/29/18 03/04/20 History levothyroxine [Synthroid] 75 mcg PO HS 08/29/18 03/04/20 History polyethylene glycol 3350 [Miralax] 17 g PO DAILY PRN 08/29/18 03/03/20 History sertraline [Zoloft] 25 mg PO QPM 08/29/18 03/04/20 History simvastatin [Zocor] 20 mg PO HS 08/29/18 03/04/20 History Ocuvite with Lutein 1 tab PO BID 12/25/18 03/04/20 History glucosamine sulfate [Glucosamine] 500 mg PO QDD 12/25/18 03/04/20 History sevelamer carbonate [Renvela] 1,600 mg PO TIDM 12/25/18 03/04/20 History calcium carbonate [Calcium 500] 500 mg PO DAILY 11/20/19 03/03/20 History Combivent Respimat 1 puff INHALATION QID 11/24/19 03/03/20 History cinacalcet 30 mg PO 3XWK 11/24/19 03/04/20 History fluticasone propion-salmeterol 1 inh INHALATION BID 11/24/19 03/04/20 History [Advair Diskus] diltiazem HCl 180 mg PO 4XWK 11/25/19 03/04/20 History ProRenal 1 tab PO QPM 03/03/20 03/04/20 History omeprazole 20 mg PO QAM 03/03/20 03/04/20 History Patient History Family History Father Family hx of colon cancer Other No family history of adverse response to anesthesia Social History Preferred Language: Malay Communication Ability: Effective Director Translational Required: No Beliefs That Will Affect Care: None marital status: / Current Living Situation: Alone Feels Safe at Home: Yes Safety Concerns: Feels Safe At This Time Smoking Status: Never smoker Do You Dip or Chew Tobacco: No ; Second Hand Exposure: Yes (IN THE PAST) ; Tobacco Cessation Education Requested by Patient: No Hx Alcohol Use: No Hx Substance Use: No Results & Data Results & Data ([facility]) Vital Signs (Past 12 Hours) Vital Signs Temp Pulse Resp BP Pulse Ox 03/04/20 20:50 57 L 15 152/63 H 97 03/04/20 20:40 36.3 C L 56 L 16 149/63 H 97 03/04/20 20:30 53 L 17 160/66 H 97 03/04/20 20:20 55 L 18 153/62 H 96 03/04/20 20:10 54 L 16 162/70 H 84 L 03/04/20 20:00 58 L 15 164/67 H 91 03/04/20 19:50 55 L 16 162/69 H 98 03/04/20 19:40 57 L 18 159/67 H 100 03/04/20 19:30 58 L 20 161/67 H 97 03/04/20 19:24 36 C L 58 L 16 163/74 H 98 03/04/20 13:55 37.0 C 72 20 175/79 H 95 Laboratory Results Laboratory Results WBC 3.77 K/uL (4.8-10.8) L 03/04/20 14:00 RBC 2.64 M/uL (4.2-5.4) L 03/04/20 14:00 Hgb 8.5 g/dL (12.0-16.0) L 03/04/20 14:00 Hct 26.4 % (37-47) L 03/04/20 14:00 MCV 100.0 fL (80-100) 03/04/20 14:00 MCH 32.2 pg (25-34) 03/04/20 14:00 MCHC 32.2 g/dL (32-36) 03/04/20 14:00 RDW Std Deviation 58.4 fL (36.4-46.3) H 03/04/20 14:00 RDW Coeff of Derek 16.3 % (11.5-14.5) H 03/04/20 14:00 Plt Count 155 K/uL (130-400) 03/04/20 14:00 MPV 9.6 fL (7.4-10.4) 03/04/20 14:00 Sodium 141 mmol/L (136-145) 03/04/20 14:00 Potassium 4.3 mmol/L (3.5-5.1) 03/04/20 14:00 Chloride 105 mmol/L (98-107) 03/04/20 14:00 Carbon Dioxide 27 mmol/L (21-32) 03/04/20 14:00 Anion Gap 9.0 (3-11) 03/04/20 14:00 BUN 37 mg/dl (7-18) H 03/04/20 14:00 Creatinine 6.34 mg/dl (0.6-1.2) H* 03/04/20 14:00 Est Cr Clr Drug Dosing 6.9 ml/min 03/04/20 14:00 Est GFR ( Amer) 6.6 03/04/20 14:00 Est GFR (Non-Af Amer) 5.7 03/04/20 14:00 BUN/Creatinine Ratio 5.9 (10-20) L 03/04/20 14:00 Glucose 89 mg/dl (70-99) 03/04/20 14:00 Calcium 8.9 mg/dl (8.5-10.1) 03/04/20 14:00
[2020-03-04] MEDS ORDERED: ACETAMINOPHEN 325 MG TAB PO PRN (21:16)
--- NOTE | 2020-03-04 21:16 | History & Physical Report ---
Date of Service March 04, 2020 Assessment & Plan (1) Acute hypoxemic respiratory failure: Postop hypoxemia likely related to procedural anesthesia/sedation, s/p ORIF for R wrist fx hx COPD as per records hypertension, slight elevated hyperlipidemia on statin Rx breast cancer status post surgery ongoing Arimidex Rx ESRD on HD chronic anemia, hemoglobin at baseline Medical telemetry Supplemental O2 Baseline ABG Facilitate home inhalers Encourage incentive spirometry May benefit from IV steroid dose if hypoxemia persistent given history COPD Nephrology consult RE dialysis management UOC consult RE postop eval DVT prophylaxis. SCDs RE postop Heparin 5000 mg subcutaneous every 8 hours once bleeding risk is deemed to be minimal and negligible if Orthopedics agreeable. Full code Text document was generated using [employer] voice recognition software. It may contain grammatical or spelling errors. Kindly contact undersigned for clarification of any documentation item in question. History of Present Illness Chief Complaint: Low O2 Primary Care Provider: Sandra Bar MD History obtained from patient and records. Medical history significant for hypertension, hyperlipidemia, COPD as per records, breast cancer status post surgery ongoing Arimidex Rx, ESRD on HD, chronic anemia (baseline hemoglobin of 8). Last confinement AV fistula bleeding/malfunction. Last week patient injured her right forearm after a mechanical fall at home. Patient seen at PCPs office. Outpatient x-ray showed distal radius and ulnar fracture, right. Patient underwent elective ORIF for right wrist fracture this afternoon at same- day surgery. O2 sats noted to be 80s postop. Patient denies chest pain, S OB symptoms. No unusual cough symptoms. 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 Allergies Allergy/AdvReac Type Severity Reaction Status Date / Time ketorolac Allergy Intermediate HIVES Verified 03/04/20 14:10 (HOWEVER PATIENT TAKES ASA AT HOME W/O RXN) Home Medications Home Medications Medication Instructions Recorded Confirmed Type anastrozole [Arimidex] 1 mg PO QDD 08/29/18 03/04/20 History aspirin 81 mg PO HS 08/29/18 03/04/20 History levothyroxine [Synthroid] 75 mcg PO HS 08/29/18 03/04/20 History polyethylene glycol 3350 [Miralax] 17 g PO DAILY PRN 08/29/18 03/03/20 History sertraline [Zoloft] 25 mg PO QPM 08/29/18 03/04/20 History simvastatin [Zocor] 20 mg PO HS 08/29/18 03/04/20 History Ocuvite with Lutein 1 tab PO BID 12/25/18 03/04/20 History glucosamine sulfate [Glucosamine] 500 mg PO QDD 12/25/18 03/04/20 History sevelamer carbonate [Renvela] 1,600 mg PO TIDM 12/25/18 03/04/20 History calcium carbonate [Calcium 500] 500 mg PO DAILY 11/20/19 03/03/20 History Combivent Respimat 1 puff INHALATION QID 11/24/19 03/03/20 History cinacalcet 30 mg PO 3XWK 11/24/19 03/04/20 History fluticasone propion-salmeterol 1 inh INHALATION BID 11/24/19 03/04/20 History [Advair Diskus] diltiazem HCl 180 mg PO 4XWK 11/25/19 03/04/20 History ProRenal 1 tab PO QPM 03/03/20 03/04/20 History omeprazole 20 mg PO QAM 03/03/20 03/04/20 History Past Med/Surg History Family History Father Family hx of colon cancer Other No family history of adverse response to anesthesia Social History Preferred Language: Cymro Communication Ability: Effective Aluminum Siding Applicator Required: No Beliefs That Will Affect Care: None marital status: / Current Living Situation: Alone Other Information That Helps Us Care for You: No Feels Safe at Home: Yes Safety Concerns: Feels Safe At This Time Smoking Status: Never smoker Do You Dip or Chew Tobacco: No ; Second Hand Exposure: Yes (IN THE PAST) ; Tobacco Cessation Education Requested by Patient: No Hx Alcohol Use: No Hx Substance Use: No Review of Systems Review of Systems: As per HPI, all 10 systems reviewed, all other ROS negative Physical Exam Physical Exam: GENERAL: Comfortable, slightly hard of hearing, obese, no respiratory distress SKIN: Pallor , warm HEENT: Bespectacled, pale palpebral conjunctivae, no ptosis, dry buccal mucosa NECK : Supple, short neck, no tenderness CHEST : Decreased breath sounds , no tenderness HEART : Bradycardic , no obvious murmurs ABDOMEN: Some distention, nontender EXTREMITIES : Minimal LE swelling, no LE tenderness, dressing RUE, no other conspicuous deformities noted NEUROLOGIC : Coherent, no facial asymmetry, mild hearing impairment, no other gross focality Results & Data Results & Data ([facility]) Vital Signs (Past 12 Hours) Vital Signs Temp Pulse Resp BP Pulse Ox 03/04/20 20:50 57 L 15 152/63 H 97 03/04/20 20:40 36.3 C L 56 L 16 149/63 H 97 03/04/20 20:30 53 L 17 160/66 H 97 03/04/20 20:20 55 L 18 153/62 H 96 03/04/20 20:10 54 L 16 162/70 H 84 L 03/04/20 20:00 58 L 15 164/67 H 91 03/04/20 19:50 55 L 16 162/69 H 98 03/04/20 19:40 57 L 18 159/67 H 100 03/04/20 19:30 58 L 20 161/67 H 97 03/04/20 19:24 36 C L 58 L 16 163/74 H 98 03/04/20 13:55 37.0 C 72 20 175/79 H 95 Laboratory Results Laboratory Results WBC 3.77 K/uL (4.8-10.8) L 03/04/20 14:00 RBC 2.64 M/uL (4.2-5.4) L 03/04/20 14:00 Hgb 8.5 g/dL (12.0-16.0) L 03/04/20 14:00 Hct 26.4 % (37-47) L 03/04/20 14:00 MCV 100.0 fL (80-100) 03/04/20 14:00 MCH 32.2 pg (25-34) 03/04/20 14:00 MCHC 32.2 g/dL (32-36) 03/04/20 14:00 RDW Std Deviation 58.4 fL (36.4-46.3) H 03/04/20 14:00 RDW Coeff of Derek 16.3 % (11.5-14.5) H 03/04/20 14:00 Plt Count 155 K/uL (130-400) 03/04/20 14:00 MPV 9.6 fL (7.4-10.4) 03/04/20 14:00 Sodium 141 mmol/L (136-145) 03/04/20 14:00 Potassium 4.3 mmol/L (3.5-5.1) 03/04/20 14:00 Chloride 105 mmol/L (98-107) 03/04/20 14:00 Carbon Dioxide 27 mmol/L (21-32) 03/04/20 14:00 Anion Gap 9.0 (3-11) 03/04/20 14:00 BUN 37 mg/dl (7-18) H 03/04/20 14:00 Creatinine 6.34 mg/dl (0.6-1.2) H* 03/04/20 14:00 Est Cr Clr Drug Dosing 6.9 ml/min 03/04/20 14:00 Est GFR ( Amer) 6.6 03/04/20 14:00 Est GFR (Non-Af Amer) 5.7 03/04/20 14:00 BUN/Creatinine Ratio 5.9 (10-20) L 03/04/20 14:00 Glucose 89 mg/dl (70-99) 03/04/20 14:00 Calcium 8.9 mg/dl (8.5-10.1) 03/04/20 14:00 Magnesium Cancelled 03/04/20 14:00 TSH Cancelled 03/04/20 14:00 Diagnostic Findings Chest x-ray as per my interpretation cardiomegaly, mild congestion, atelectasis, elevated right hemidiaphragm
[2020-03-04] MEDS ORDERED: PROMETHAZINE HCL 12.5 MG in SODIUM CHLORIDE 0.9% 50 ML IV PRN (21:33)
[2020-03-04] MEDS ORDERED: HYDROmorphone INJ 0.5 MG/0.5 ML SYR IV PRN (21:33)
[2020-03-04] MEDS ORDERED: TRAMADOL HCL 50 MG TABLET PO PRN (21:33)
[2020-03-04] MEDS ORDERED: POLYETHYLENE (MIRALAX) 17 GM PACK PO PRN (21:34)
[2020-03-04] MEDS ORDERED: SIMVASTATIN 20 MG TAB PO SCH (21:35)
[2020-03-04 22:10] LABS: Thyroid Stimulating Hormone 1.66 uIu/ml (0.300-4.500)
[2020-03-04] MEDS ORDERED: ALBUT/IPRATROP 3MG/0.5MG NEB 3 ML VIAL NEB STA (22:54)
[2020-03-04] MEDS ORDERED: SERTRALINE HCL 50 MG TABLET PO SCH (23:00)
[2020-03-04] MEDS: SENSIPAR~ORDER AWAITING ACTION SCH (23:38)
[2020-03-05] MEDS ORDERED: HydrALAZINE HCL 20 MG/ML VIAL IV ONE (00:15)
[2020-03-05] MEDS: SENSIPAR~ORDER AWAITING ACTION SCH ×3 (00:19→16:08)
[2020-03-05] MEDS ORDERED: dilTIAZem HCL 120 MG CAPCR PO STA ×2 (04:10→11:35)
[2020-03-05] MEDS ORDERED: ALBUT/IPRATROP 3MG/0.5MG NEB 3 ML VIAL NEB STA (05:53)
[2020-03-05] MEDS ORDERED: methylPREDNISolone 40 MG in SYRINGE 0 ML IV ONE (06:15)
[2020-03-05] MEDS ORDERED: IPRATROPIUM BROMIDE HFA INHALER INH SCH (07:00)
[2020-03-05] MEDS ORDERED: ALBUTEROL HFA 8 GM INHALER INH SCH (07:00)
--- NOTE | 2020-03-05 07:13 | XRay Report ---
XR chest 1V portable CLINICAL HISTORY: low o2 COMPARISON STUDY: 09/11/2019 FINDINGS: Moderate cardiomegaly. Mild prominence of pulmonary vasculature. No focal infiltrate. IMPRESSION: Moderate cardiomegaly. Pulmonary vascular congestion. ACT 112: Negative or not required by law. The above report was generated using voice recognition software. It may contain grammatical, syntax or spelling errors. Electronically signed by: Jimbo Justice M.D. 03/05/2020 7:11 AM
[2020-03-05] MEDS: SEVELAMER HCL 800 MG TABLET PO SCH ×2 (08:02→14:33)
[2020-03-05] MEDS ORDERED: SODIUM CHLORIDE 0.9% 1000ML 1,000 ML IV PRN (08:35)
[2020-03-05] MEDS ORDERED: EPOETIN ALFA 20,000 UNITS/ML VIAL IV ONE (08:40)
[2020-03-05] MEDS ORDERED: CEROVITE ADV FORMULA TAB PO SCH (09:00)
[2020-03-05] MEDS ORDERED: FLUTICASONE/VILANTEROL 100/25MCG 14 PUFFS/INHALER INH SCH (09:00)
[2020-03-05] MEDS ORDERED: PANTOprazole 40 MG TAB PO SCH (09:00)
[2020-03-05] MEDS ORDERED: CALCIUM CARBONATE 1250MG TAB PO SCH (09:00)
[2020-03-05 09:14] LABS: Basophils # (auto) 0.01 K/uL (0-0.2); Basophils % (auto) 0.2 %; Eosinophils # (auto) 0.01 K/uL (0-0.5); Eosinophils % (auto) 0.2 %; Hematocrit (blood only) 26.1 % (37-47); Immature Granulocytes # (auto) 0.02 K/uL (0.00-0.02); Immature Granulocytes % (auto) 0.4 %; Lymphocytes # (auto) 0.41 K/uL (1.2-3.4); Lymphocytes % (auto) 7.4 %; Mean Corpuscular Hemoglobin 31.1 pg (25-34); Mean Corpuscular Hgb Conc 30.7 g/dL (32-36); Mean Corpuscular Volume 101.6 fL (80-100); Mean Platelet Volume 9.5 fL (7.4-10.4); Monocytes % (auto) 1.8 %; Neutrophils # (auto) 4.97 K/uL (1.4-6.5); Platelet Count 154 K/uL (130-400); RDW Coefficient of Variation 16.3 % (11.5-14.5); RDW Standard Deviation 58.7 fL (36.4-46.3); Red Blood Count 2.57 M/uL (4.2-5.4); White Blood Count 5.52 K/uL (4.8-10.8)
[2020-03-05] MEDS ORDERED: IRON SUCROSE 200 MG in SYRINGE 0 ML IV ONE (09:15)
[2020-03-05 09:45] LABS: BUN Creatinine Ratio 5.8 (10-20); Calcium 8.4 mg/dl (8.5-10.1); Creatinine Clr Calc Pharmacy 5.5 ml/min; Est GFR (African American) 5.1; Est GFR (Non-African American) 4.4; Potassium 4.3 mmol/L (3.5-5.1)
--- NOTE | 2020-03-05 10:05 | Nephrology Consultation ---
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 HD MWF [facility] (3.5hr F-160NR 2K 2Ca; EDW 77.4 kg). Last HD was Sunday. Orders for HD today were entered into the EMR and reviewed with the dialysis nurse. Will target a UF goal of 2.5 L to target EDW. If discharge is anticipated please have patient resume MWF outpatient HD at [facility] (2) Anemia: Hgb was 8.5 on 03/03/20 at dialysis. It was 9.2 on 02/25/20. 75 mcg of Micera provided on 03/03/20. Epogen provided today with HD in addition to Venofer 200 mg. (3) Dialysis AV fistula malfunction: AVF was successfully used earlier this week in the outpatient setting. Plan discussed with HD nurse. TDC catheter acceptable for use if difficulty with fistula. (4) Closed fracture of distal end of right radius with ulna: POD#1 s/p ORIF. History of Present Illness Attending Physician: Roger Graham MD History of Present Illness Ms. Latisha Amato is an 79 year old white female with ESRD. Latisha is on IHD MWF at [facility]. ESRD has been attributed to microvascular disease. She has been on IHD since 09/15. She had a LUE AVG placed by Dr. Shannon 10/16. This failed and Ms. Amato underwent L RC AVF 09/22. The AVF was initially slow to mature and had infiltrated requiring a period of healing. The fistula is now mature and was used during hemodialysis earlier this week. Ms. Amato underwent R femoral THC insertion 11/20. Attempts at IJ THC were unsuccessful. In November, she had developed bleeding at her R femoral site. Ms. Amato presented to the ED where Hgb was 6.8 requiring PRBC transfusion support. Latisha was admitted to [facility] yesterday evening from same day surgery. Latisha suffered a mechanical fall at home resulting in a right forearm fracture. She underwent an uncomplicated ORIF of distal radius and ulna fracture. Post operatively, she remained hypoxic and was admitted for observation. She is breathing comfortably this morning. When out of bed to the bathroom, SaO2 dropped slightly for which she was placed on 1L supplemental O2. CXR demonstrated Moderate cardiomegaly and some pulmonary vascular congestion. PMH: ESRD (HD MWF [facility] 3.5hr F-160NR 2K 2Ca), HTN anemia, COPD, macular degeneration, OA, breast CA s/p lumpectomy 10/20 [facility] [place], hypothyroidism, depression. Allergies Allergy/AdvReac Type Severity Reaction Status Date / Time ketorolac Allergy Intermediate HIVES Verified 03/04/20 14:10 (HOWEVER PATIENT TAKES ASA AT HOME W/O RXN) Home Medications Home Medications Medication Instructions Recorded Confirmed Type anastrozole [Arimidex] 1 mg PO QDD 08/29/18 03/04/20 History aspirin 81 mg PO HS 08/29/18 03/04/20 History levothyroxine [Synthroid] 75 mcg PO HS 08/29/18 03/04/20 History polyethylene glycol 3350 [Miralax] 17 g PO DAILY PRN 08/29/18 03/03/20 History sertraline [Zoloft] 25 mg PO QPM 08/29/18 03/04/20 History simvastatin [Zocor] 20 mg PO HS 08/29/18 03/04/20 History Ocuvite with Lutein 1 tab PO BID 12/25/18 03/04/20 History glucosamine sulfate [Glucosamine] 500 mg PO QDD 12/25/18 03/04/20 History sevelamer carbonate [Renvela] 1,600 mg PO TIDM 12/25/18 03/04/20 History calcium carbonate [Calcium 500] 500 mg PO DAILY 11/20/19 03/03/20 History Combivent Respimat 1 puff INHALATION QID 11/24/19 03/03/20 History cinacalcet 30 mg PO 3XWK 11/24/19 03/04/20 History fluticasone propion-salmeterol 1 inh INHALATION BID 11/24/19 03/04/20 History [Advair Diskus] diltiazem HCl 180 mg PO 4XWK 11/25/19 03/04/20 History ProRenal 1 tab PO QPM 03/03/20 03/04/20 History omeprazole 20 mg PO QAM 03/03/20 03/04/20 History Patient History Medical History Anemia Breast cancer left diagnosed in 2006/right in 2017--sx, radiation Chronic depression Chronic low back pain End stage renal disease on dialysis - [facility] GERD (gastroesophageal reflux disease) Hearing deficit History of colon polyps HTN (hypertension) Hyperlipidemia Hypothyroidism Secondary hyperparathyroidism (05/27/12) Surgical History History of bilateral cataract extraction History of colonoscopy History of dilatation and curettage History of ear surgery right History of esophagogastroduodenoscopy (EGD) History of eye surgery right eye after cataract History of left breast biopsy malignant History of lumpectomy of left breast History of lumpectomy of right breast History of right breast biopsy History of surgery removal of perm cath 07/03/19 [facility] History of tooth extraction History of total left hip replacement History of total right hip replacement x2 Status post creation of arteriovenous fistula left upper arm. MWF dialysis. Status post partial resection of colon d/t large polyp Family History Father Family hx of colon cancer Other No family history of adverse response to anesthesia Social History Preferred Language: Romansh Communication Ability: Effective Intermediate Accountant Required: No Beliefs That Will Affect Care: None marital status: / Current Living Situation: Alone Other Information That Helps Us Care for You: No Feels Safe at Home: Yes Safety Concerns: Feels Safe At This Time Smoking Status: Never smoker Do You Dip or Chew Tobacco: No ; Second Hand Exposure: Yes (IN THE PAST) ; Tobacco Cessation Education Requested by Patient: No Hx Alcohol Use: No Hx Substance Use: No Physical Exam Constitutional: well developed; no acute distress Eyes: no scleral abnormality and no corneal abnormality ENMT: Mouth: no oral mucosal abnormality and oral mucous membranes not dry Neck: normal visual inspection and trachea midline Respiratory: normal respiratory effort Auscultation: lungs clear to auscultation bilaterally Cardiovascular: Rate/Rhythm: regular rate Heart Sounds: normal S1 and normal S2 Extremities: + AV fistula; no edema Femoral TDC Musculoskeletal: Extremities: + limited ROM of extremities (Right arm in sling); no cyanosis Skin: normal turgor; no lesions Neurologic: Motor/Sensory: no tremor and no asterixis Psychiatric: Orientation: alert and oriented x 3 Results & Data Vital Signs (Past 12 Hours) Vital Signs Temp Pulse Pulse Pulse Resp BP Pulse Ox 03/05/20 07:31 36.7 C 81 18 179/79 H 93 03/05/20 07:27 74 03/05/20 06:17 74 16 97 03/05/20 02:14 36.9 C 74 18 168/69 H 96 03/05/20 01:37 37.1 C 72 18 167/61 H 95 03/05/20 00:17 37.2 C 62 18 156/69 H 95 03/05/20 00:05 57 L 03/04/20 23:40 36.7 C 57 L 18 163/67 H 96 03/04/20 23:13 57 L 16 97 03/04/20 22:30 57 L 22 160/62 H 97 03/04/20 22:08 36.9 C 58 L 22 145/57 H 96 Laboratory Results Laboratory Results - last 24 hr 03/04/20 03/04/20 03/04/20 14:00 14:00 14:00 WBC 3.77 L RBC 2.64 L Hgb 8.5 L Hct 26.4 L MCV 100.0 MCH 32.2 MCHC 32.2 RDW Std Deviation 58.4 H RDW Coeff of Derek 16.3 H Plt Count 155 MPV 9.6 Immature Gran % (Auto) Neut % (Auto) Lymph % (Auto) Esmeralda % (Auto) Eos % (Auto) Baso % (Auto) Neut # (Auto) Lymph # (Auto) Esmeralda # (Auto) Eos # (Auto) Baso # (Auto) Immature Gran # (Auto) Sodium 141 Potassium 4.3 Chloride 105 Carbon Dioxide 27 Anion Gap 9.0 BUN 37 H Creatinine 6.34 H* Est Cr Clr Drug Dosing 6.9 Est GFR ( Amer) 6.6 Est GFR (Non-Af Amer) 5.7 BUN/Creatinine Ratio 5.9 L Glucose 89 Calcium 8.9 Magnesium 2.0 Cancelled TSH 1.660 Cancelled 03/05/20 03/05/20 08:51 08:51 WBC 5.52 RBC 2.57 L Hgb 8.0 L Hct 26.1 L MCV 101.6 H MCH 31.1 MCHC 30.7 L RDW Std Deviation 58.7 H RDW Coeff of Derek 16.3 H Plt Count 154 MPV 9.5 Immature Gran % (Auto) 0.4 Neut % (Auto) 90.0 Lymph % (Auto) 7.4 Esmeralda % (Auto) 1.8 Eos % (Auto) 0.2 Baso % (Auto) 0.2 Neut # (Auto) 4.97 Lymph # (Auto) 0.41 L Esmeralda # (Auto) 0.10 L Eos # (Auto) 0.01 Baso # (Auto) 0.01 Immature Gran # (Auto) 0.02 Sodium 139 Potassium 4.3 Chloride 104 Carbon Dioxide 26 Anion Gap 9.0 BUN 46 H Creatinine 7.85 H* D Est Cr Clr Drug Dosing 5.5 Est GFR ( Amer) 5.1 Est GFR (Non-Af Amer) 4.4 BUN/Creatinine Ratio 5.8 L Glucose 147 H Calcium 8.4 L Magnesium TSH PG Care Time/CCT Total # of Minutes Spent Total Time Spent with Patient: Total time spent is greater than 50% in coordination of care (as documented) at patient's floor/unit and/or counseling patient: Coding Level of Care Code 64471 Inpt Consult Level 4 Diagnoses ESRD (end stage renal disease) on dialysis N18.6; Z99.2 Anemia D64.9 Dialysis AV fistula malfunction T82.590A Closed fracture of distal end of right radius with ulna S52.501A; S52.601A Encounter type: initial encounter (1) Closed fracture of distal end of right radius with ulna Encounter type: initial encounter Qualified Code(s): S52.501A - Unspecified fracture of the lower end of right radius, initial encounter for closed fracture; S52.601A - Unspecified fracture of lower end of right ulna, initial encounter for closed fracture
[2020-03-05] MEDS ORDERED: Nursing to Pharmacy Communication SCH (11:45)
--- NOTE | 2020-03-05 12:32 | Orthopedic Progress Note ---
Date of Service March 05, 2020 Assessment & Plan (1) Closed fracture of distal end of right radius with ulna: POD #1 s/p Right wrist open reduction and internal fixation of comminuted, displaced, four-part intra-articular distal radius fracture with closed treatment of nondisplaced ulnar head fracture Continue volar splint over the next 2 weeks. Ice and elevate as much as possible. Sling for comfort Pain control D/C planning--per medicine. OK to discharge from ortho standpoint and follow up with Dr. Willson in 2 weeks. Admission and Anticipated Discharge Date Admission Date: March 04, 2020 Subjective Patient has no wrist complaints today. Wants to be able to go home today. Pain is controlled in the wrist. Physical Exam Constitutional: WD/WN, vitals as above Lying comfortably in bed in dialysis. Musculoskeletal: Extremities: + upper extremity abnormal to inspection Right (Volar, short arm splint in place. Fingers are mobile. Sensation intact to light touch.) Neurologic: normal touch/pain/proprioception Psychiatric: A+Ox3, euthymic affect Speech: normal rate/rhythm/volume of speech Results & Data ([facility]) Vital Signs (Past 12 Hours) Vital Signs Temp Pulse Pulse Pulse Resp BP BP 03/05/20 11:30 89 195/80 H 03/05/20 11:20 88 199/81 H 03/05/20 11:00 89 208/85 H 03/05/20 10:55 89 03/05/20 10:40 87 201/81 H 03/05/20 10:24 89 209/72 H 03/05/20 07:31 36.7 C 81 18 179/79 H 03/05/20 07:27 74 03/05/20 06:17 74 16 03/05/20 02:14 36.9 C 74 18 168/69 H 03/05/20 01:37 37.1 C 72 18 167/61 H Pulse Ox 03/05/20 11:30 03/05/20 11:20 03/05/20 11:00 03/05/20 10:55 03/05/20 10:40 03/05/20 10:24 03/05/20 07:31 93 03/05/20 07:27 03/05/20 06:17 97 03/05/20 02:14 96 03/05/20 01:37 95 (1) Closed fracture of distal end of right radius with ulna Encounter type: initial encounter Qualified Code(s): S52.501A - Unspecified fracture of the lower end of right radius, initial encounter for closed fracture; S52.601A - Unspecified fracture of lower end of right ulna, initial encounter for closed fracture
--- NOTE | 2020-03-05 15:20 | Hospitalist Progress Note ---
Date of Service March 05, 2020 Assessment & Plan (1) Acute hypoxemic respiratory failure: Postop hypoxemia likely related to procedural anesthesia/sedation, s/p ORIF for R wrist fx (now resolved) hx COPD as per records hypertension, slight elevated hyperlipidemia on statin Rx breast cancer status post surgery ongoing Arimidex Rx ESRD on HD chronic anemia, hemoglobin at baseline Medical telemetry Supplemental O2 Baseline ABG- unable to obtain Facilitate home inhalers Encourage incentive spirometry May benefit from IV steroid dose if hypoxemia persistent given history COPD Nephrology consult RE dialysis management Pt now s/p HD, breathing comfortably on RA, pt wants to go home Closed fracture of distal end of right radius with ulna POD #1 s/p Right wrist open reduction and internal fixation of comminuted, displaced, four-part intra-articular distal radius fracture with closed treatment of nondisplaced ulnar head fracture UOC consult RE postop eval Continue volar splint over the next 2 weeks. Ice and elevate as much as possible. Sling for comfort Pain control Follow up with Dr. Willson in 2 weeks. DVT prophylaxis. SCDs RE postop Heparin 5000 mg subcutaneous every 8 hours once bleeding risk is deemed to be minimal and negligible if Orthopedics agreeable. Full code Admission and Anticipated Discharge Date Admission Date: March 04, 2020 Subjective Pt just underwent HD and feels well. She is breathing comfortably on room air and wants to go home. She is POD #1 of R wrist ORIF, she has no wrist complaints today. She also denies any fever, chills, chest pain, shortness of breath, abd. pain, nausea or vomiting. Review of Systems Review of Systems: All systems reviewed & are unremarkable except as noted in HPI & below Constitutional: no fever and no chills Respiratory: no cough and no dyspnea Cardiovascular: no chest pain and no palpitations Gastrointestinal: no abdominal pain, no nausea and no vomiting Physical Exam Physical Exam: GENERAL: Elderly obese female lying in bed, in NAD, comfortable, breathing on RA HEENT: NC/AT, bespectacled, pale palpebral conjunctivae NECK : Supple, short neck, no tenderness CHEST : CTAB, no tenderness HEART : RRR, no obvious murmurs ABDOMEN: + bowel sounds, soft, some distention, nontender to palpation EXTREMITIES : Minimal LE swelling, no LE tenderness, R wrist splint SKIN: Pallor , warm NEUROLOGIC : alert and oriented x3, no facial asymmetry, speech fluent, mild hearing impairment, moves extremities spontaneously Results & Data Results & Data ([facility]) Vital Signs (Past 12 Hours) Vital Signs Temp Pulse Pulse Pulse Resp BP BP 03/05/20 14:33 36.9 C 91 H 16 148/68 H 03/05/20 14:15 37.1 C 91 H 184/79 H 03/05/20 13:45 89 153/75 H 03/05/20 13:30 90 168/76 H 03/05/20 13:15 90 174/76 H 03/05/20 13:00 91 H 173/75 H 03/05/20 12:45 92 H 176/75 H 03/05/20 12:30 92 H 186/73 H 03/05/20 12:15 90 179/74 H 03/05/20 12:00 91 H 185/76 H 03/05/20 11:45 88 194/77 H 03/05/20 11:30 89 195/80 H 03/05/20 11:20 88 199/81 H 03/05/20 11:00 89 208/85 H 03/05/20 10:55 89 03/05/20 10:40 87 201/81 H 03/05/20 10:24 89 209/72 H 03/05/20 07:31 36.7 C 81 18 179/79 H 03/05/20 07:27 74 03/05/20 06:17 74 16 Pulse Ox 03/05/20 14:33 91 03/05/20 14:15 03/05/20 13:45 03/05/20 13:30 03/05/20 13:15 03/05/20 13:00 03/05/20 12:45 03/05/20 12:30 03/05/20 12:15 03/05/20 12:00 03/05/20 11:45 03/05/20 11:30 03/05/20 11:20 03/05/20 11:00 03/05/20 10:55 03/05/20 10:40 03/05/20 10:24 03/05/20 07:31 93 03/05/20 07:27 03/05/20 06:17 97
--- NOTE | 2020-03-05 15:21 | Discharge Summary ---
Date of Service March 05, 2020 Admission HPI Per Admitting Provider History obtained from patient and records. Medical history significant for hypertension, hyperlipidemia, COPD as per records, breast cancer status post surgery ongoing Arimidex Rx, ESRD on HD, chronic anemia (baseline hemoglobin of 8). Last confinement AV fistula bleeding/malfunction. Last week patient injured her right forearm after a mechanical fall at home. Patient seen at PCPs office. Outpatient x-ray showed distal radius and ulnar fracture, right. Patient underwent elective ORIF for right wrist fracture this afternoon at same- day surgery. O2 sats noted to be 80s postop. Patient denies chest pain, S OB symptoms. No unusual cough symptoms. 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 Admission Exam Per Admitting Provider GENERAL: Comfortable, slightly hard of hearing, obese, no respiratory distress SKIN: Pallor , warm HEENT: Bespectacled, pale palpebral conjunctivae, no ptosis, dry buccal mucosa NECK : Supple, short neck, no tenderness CHEST : Decreased breath sounds , no tenderness HEART : Bradycardic , no obvious murmurs ABDOMEN: Some distention, nontender EXTREMITIES : Minimal LE swelling, no LE tenderness, dressing RUE, no other conspicuous deformities noted NEUROLOGIC : Coherent, no facial asymmetry, mild hearing impairment, no other gross focality Principal Diagnosis Right distal radius and ulna fractures s/p R wrist ORIF Hypoxia, post surgery, secondary to anesthesia, pain medications and fluid status (patient with history of ESRD on HD, now status post HD) Discharge Exam GENERAL: Elderly obese female lying in bed, in NAD, comfortable, breathing on RA HEENT: NC/AT, bespectacled, pale palpebral conjunctivae NECK : Supple, short neck, no tenderness CHEST : CTAB, no tenderness HEART : RRR, no obvious murmurs ABDOMEN: + bowel sounds, soft, some distention, nontender to palpation EXTREMITIES : Minimal LE swelling, no LE tenderness, R wrist splint SKIN: Pallor , warm NEUROLOGIC : alert and oriented x3, no facial asymmetry, speech fluent, mild hearing impairment, moves extremities spontaneously Discharge Data Allergies Allergy/AdvReac Type Severity Reaction Status Date / Time ketorolac Allergy Intermediate HIVES Verified 03/04/20 14:10 (HOWEVER PATIENT TAKES ASA AT HOME W/O RXN) Consultations 03/04/20 22:36 Consult Nephrology Routine 03/05/20 01:44 Consult Orthopedic Surgery Routine Procedures Performed Operation Date: 03/04/20 07:00 Actual Procedures p Open Reduction, Internal Fixation Right Distal Radius(Right) - Garo Willson M.D. Ordered Studies 03/04/20 05:00 US - OR guided needle placemen Routine 03/04/20 12:00 FL fluoroscopy <1hr Routine FL wrist RT 3V RTN Routine Hospital Course (1) Acute hypoxemic respiratory failure: Postop hypoxemia likely related to procedural anesthesia/sedation, s/p ORIF for R wrist fx (now resolved) hx COPD as per records hypertension, slight elevated hyperlipidemia on statin Rx breast cancer status post surgery ongoing Arimidex Rx ESRD on HD chronic anemia, hemoglobin at baseline Medical telemetry Supplemental O2 Baseline ABG- unable to obtain Facilitate home inhalers Encourage incentive spirometry May benefit from IV steroid dose if hypoxemia persistent given history COPD Nephrology consult RE dialysis management Pt now s/p HD, breathing comfortably on RA, pt wants to go home Closed fracture of distal end of right radius with ulna POD #1 s/p Right wrist open reduction and internal fixation of comminuted, displaced, four-part intra-articular distal radius fracture with closed treatment of nondisplaced ulnar head fracture UOC consult RE postop eval Continue volar splint over the next 2 weeks. Ice and elevate as much as possible. Sling for comfort Pain control Follow up with Dr. Willson in 2 weeks. Total Time Total Time Spent Total Time Spent (In Minutes): 35 Total Time Includes: Examination of the Patient, Discharge Planning, Medication Reconciliation and Communication With Other Providers Discharge Plan Discharge Items Patient Disposition: Home - Self-Care Reason For Visit: Right Distal Radius/Ulnar Fractures Discharge Diagnosis: Right distal radius and ulna fractures Hypoxia, post surgery, secondary to anesthesia, pain medications and fluid status (patient with history of ESRD on HD, now status post HD) Activity: Per Instructions section Non-emergency contact: Surgeon Call non-emergency contact if: your temperature is above 101.5, your wound has increased redness and your wound has increased drainage Follow-up/Referrals: Sandra Bar MD [Primary Care Provider] - Garo Willson M.D. [Physician] - Diet: Dialysis Renal and Heart Healthy Addtl Attending Provider Instructions: Things to Watch Out For -Nausea and sometimes vomiting is common side effect of anesthesia. Go easy with eating for the first day after your surgery. Drink non-carbonated fluids like Gatorade or water. Eat bland foods such as crackers. If these things go down easily, you may progress to more normal foods. -Go to the Emergency Room if you have sudden onset of chest pain, shortness of breath, or uncontrollable pain. -Call the clinic immediately if you have a sudden increase in the amount of wound drainage or the drainage becomes thick, yellow or green, or foul-smelling. -For routine questions, call the clinic at [phone] during regular business hours (8am-5pm). For urgent issues after regular business hours, you may call the clinic to be connected to the on-call physician. Splint/Dressings -Do not remove your splint or dressings until you follow up in clinic or with therapy. -Keep the splint and dressings clean and dry. If the splint padding gets damp, you may use a hair or beauty salon manager on a low heat setting to dry it out. If the splint padding is soaked, call the clinic to have the splint replaced. -Do not put any objects down inside the splint (such as coat hangers). They could scratch your skin and cause a serious infection underneath the splint. Sling/Activity -Keep your hand elevated and move your fingers frequently to reduce swelling. -You may wear a sling for comfort, but come out of the sling 4-5 times a day for active range of motion exercises for your shoulder and elbow. -Do not lift any objects greater than 1 pound or bear any weight through your operative arm. Pain Medicines -You have been prescribed an anti-inflammatory (Motrin/ibuprofen) and a non- narcotic pain medicine (Tylenol/acetaminophen). These are your primary pain medications. Take them each every 6 hours as instructed. It is recommended that you stagger these medicines every 3 hours (i.e. take ibuprofen at 8:00 am, then acetaminophen at 11:00 am, then ibuprofen at 2:00 pm, etc). -DO NOT take any additional anti-inflammatories (Advil, Aleve/naproxen, Mobic/meloxicam, Celebrex) or any additional Tylenol/acetaminophen products with these prescribed medications. -You have also been prescribed an additional narcotic pain medication (oxycodone/tramadol). Take this medicine ONLY for breakthrough pain not controlled by the ibuprofen and acetaminophen. -Do not drive or operate heavy machinery while taking the narcotic medication. -Common side effects of narcotic pain medicines include itching, nausea, constipation, and feeling ``loopy. However, if you develop a rash or hives, stop taking the medicine and call the clinic. If you develop swelling in your throat or difficulty breathing, go to the Emergency Room or call 911 IMMEDIATELY. -You may take over the counter stool softeners if needed for constipation. Regional Nerve Blocks -If you were given a regional nerve block for your surgery, take a dose of pain medicine BEFORE the block wears off (either before you go to bed or when you FIRST start feeling sensation return). Do not wait; the block will wear off fairly abruptly and cause a significant increase in your pain level. -Nerve blocks usually wear off after about 12 hours, but they can last as long as 72 hours. 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 Continue dialysis as already scheduled, Sunday and Sunday in [place]. Please follow detailed instructions provided by your orthopedic surgeon as above. You are supposed to follow-up with Dr. Willson in 2 weeks. Continue wearing splint over the next 2 weeks. Ice and elevate your wrist as much as possible. Use sling for comfort. Pending Studies at Discharge: No Stand-Alone Forms: [facility] Medications and DC Order Prescriptions: Continued glucosamine sulfate [Glucosamine] 500 mg Tablet 500 mg PO QDD RF: 0 Ocuvite with Lutein 1,000 unit-200 mg-60 unit-2 mg Tablet 1 tab PO BID RF: 0 sevelamer carbonate [Renvela] 800 mg Tablet 1,600 mg PO TIDM RF: 0 calcium carbonate [Calcium 500] 500 mg calcium (1,250 mg) Tablet 500 mg PO DAILY RF: 0 omeprazole 20 mg Tablet,Delayed Release (Dr/Ec) 20 mg PO QAM RF: 0 ProRenal 8 mg iron-800 mcg-1,000 unit Tablet 1 tab PO QPM RF: 0 anastrozole [Arimidex] 1 mg Tablet 1 mg PO QDD RF: 0 polyethylene glycol 3350 [Miralax] 17 gram Powder In Packet 17 g PO DAILY PRN (Reason: Constipation) RF: 0 levothyroxine [Synthroid] 75 mcg Tablet 75 mcg PO HS RF: 0 simvastatin [Zocor] 20 mg Tablet 20 mg PO HS RF: 0 sertraline [Zoloft] 25 mg Tablet 25 mg PO QPM RF: 0 aspirin 81 mg Tablet,Chewable 81 mg PO HS RF: 0 fluticasone propion-salmeterol [Advair Diskus] 250-50 mcg/dose Blister With Device 1 inh INHALATION BID RF: 0 cinacalcet 30 mg tablet 30 mg PO 3XWK RF: 0 Combivent Respimat 20-100 mcg/actuation mist 1 puff INHALATION QID RF: 0 diltiazem HCl 180 mg capsule,extended release 24hr 180 mg PO 4XWK RF: 0 Discontinued acetaminophen 325 mg Tablet 325 mg PO TID RF: 0 Discharge Orders: Discharge Order (Routine); Ordered 03/04/20 Ordered By: Garo Willson Admission Data Admit Date/Time: 03/04/20 21:17 Attending Provider: Roger Graham Admit Provider: Joel Ruth Primary Care Provider: Sandra Bar Other Providers: Garo Willson ; Mimi Nicole ; Jeremías Nicole ; Joel Ruth ; Woody Hunter ; Sanford Hyatt Other Interventions: Discharge Summary Assessment (RN) Last Done: 03/05/20 16:13 DC Date/Time DO NOT enter until pt leaves facility: 03/05/20 17:02
[2020-03-05] MEDS ORDERED: GLUCOSAMINE SULFATE 500 MG CAP PO SCH (16:30)
[2020-03-05] MEDS ORDERED: ANASTROZOLE 1 MG TAB PO SCH (16:30)
[2020-03-05] MEDS ORDERED: LEVOTHYROXINE SODIUM 75 MCG TABLET PO SCH (21:00)
[2020-03-05] MEDS ORDERED: ASPIRIN 81 MG ECTAB PO SCH (21:00)
[2020-03-05] MEDS ORDERED: NON-FORMULARY MEDICATION (Vit B,C-Iron Fum-Fa-D3-Zinc Ox [Prorenal] 1 TAB) PO SCH (21:00)
[2020-03-06] MEDS ORDERED: dilTIAZem HCL 180 MG CAPCR PO SCH (09:00)
--- NOTE | 2020-03-09 09:48 | Coding Query ---
To promote full compliance with coding requirements relating to patient care, physician participation is requested in all cases of tractor trailer mechanic uncertainty. Please assist us with the question(s) below: Coding Question(s): It was noted in the operative report that the patient has osteoporosis. According to coding guidelines "a code for osteoporotic fracture, and not a traumatic fracture, should be used for any patient with known osteoporosis who suffers a fracture, even if the patient had a minor fall or trauma, if that fall or trauma would not usually break a normal, healthy bone." Please indicate below the type of fracture: Physician's Response(s): ( X ) Osteoporotic fracture of radius and ulna ( ) Traumatic fracture of radius and ulna ( ) Other, please specify ( ) Unable to be determined MTDD
== END 2020-03-05 17:02 | disposition home or self-care (01) | DRG 981 ==
LOC: ASU 13:28 → 2N 21:17

== ENCOUNTER 2022-09-27 17:57 | Inpatient (IN) ==
[2022-09-27] MEDS ORDERED: dexAMETHasone**PF** 10 MG/ML VIAL IV ONE (18:35)
[2022-09-27] MEDS ORDERED: CEFEPIME 2,000 MG/20 ML VIAL IV STA (18:35)
--- NOTE | 2022-09-27 18:45 | Emergency Department Note ---
Impression & Plan Trouble swallowing, Neck pain on left side, Sialadenitis ED Provider Note NAME: KATHERINE LOUIS AGE: 81 SEX: F : 1940 ARRIVES VIA: Walk-In INFORMANT: [Patient][daughter] ED PROVIDER(S): [Camron Bowser MD] CHIEF COMPLAINT: Neck pain and swelling HISTORY OF PRESENT ILLNESS: The patient is an 81-year-old female who has had 3 days of pain along the left neck with some swelling. In the last 24 hours, the area has become more painful and she has noticed a change in her voice. The pain worsens to swallow, to open her jaw or to cough. No fever or chills. No shortness of breath. No vomiting. Patient did go to urgent care, she was referred to the ER for further work-up. The patient does go dialysis on Wednesdays and Fridays, she was there yesterday. PMHx/PSHx: See Below SOCIAL HISTORY: See Below. PHYSICAL EXAM: GENERAL: Patient is in no acute distress. Hoarse voice noted. HEENT: No acute trauma, normocephalic atraumatic, mucous membranes moist, no nasal congestion. There is trismus present. The left posterior pharynx appears edematous but it is difficult to see because of her inability to open wide. No obvious dental abscess noted. NECK: No stridor. The patient does have a 5 or so centimeter firm mass along the left neck just inferior to the left mandible. Area is quite tender. LUNGS: Clear to auscultation bilaterally, no wheeze, no rhonchi, breath sounds equal. HEART: Without murmurs gallops or rubs, regular rate and rhythm. ABDOMEN: Soft, nontender, bowel sounds positive, no peritonitis. EXTREMITIES: No cyanosis, mild bilateral pedal edema, full range of motion of all the joints without pain or difficulty, no signs for acute trauma. NEUROLOGIC: Oriented x 3, no acute motor or sensory deficits, no focal weakness. SKIN: No rash, no jaundice, no diaphoresis. DIFFERENTIAL DIAGNOSIS: Abscess, lymphadenitis, tonsillitis, retropharyngeal abscess, sialadenitis, thyroid mass, cellulitis, airway compromise, among others. EMERGENCY DEPARTMENT COURSE/PROCEDURES: Prior/Outside records reviewed: None MEDICAL DECISION MAKING: There is no leukocytosis or concerning anemia. There is a normal platelet count. Creatinine is high consistent with her dialysis need, no electrolyte abnormality in need of emergent correction. No concerning liver enzyme elevation. COVID test returned negative. Soft tissue neck CT shows a large left submandibular stone with sialadenitis. On exam, the patient had trismus and a hard time swallowing. The patient has findings consistent with a salivary gland infection. She cannot eat or drink, she has a hard time opening her jaw. I did speak with maxillofacial on-call, Dr. Arellano. For now, no emergent intervention is warranted. Patient may at some point need maxillofacial or ENT intervention to remove the stone if its not passing naturally. For now, she requires supportive care. The patient is in need of a hospital stay. She cannot eat or drink. She is in significant discomfort and has had a change of voice. During the ED stay, she was given IV cefepime as well as IV Decadron. I did speak with case management, I spoke with the patient and her family, the on-call hospitalist was consulted. DISPOSITION: Based on the patient's presentation and findings, I believe hospital admission is warranted/appropriate. Past Med/Surg History Medical History (Updated 09/27/22 @ 23:27 by Camron Bowser MD) Anemia Breast cancer left diagnosed in 2006/right in 2017--sx, radiation Chronic depression Chronic low back pain End stage renal disease on dialysis sun-sun-sun - [facility] GERD (gastroesophageal reflux disease) Hearing deficit History of colon polyps HTN (hypertension) Hyperlipidemia Hypothyroidism Secondary hyperparathyroidism (05/27/12) Surgical History History of bilateral cataract extraction History of colonoscopy History of dilatation and curettage History of ear surgery right History of esophagogastroduodenoscopy (EGD) History of eye surgery right eye after cataract History of left breast biopsy malignant History of lumpectomy of left breast History of lumpectomy of right breast History of right breast biopsy History of surgery removal of perm cath 07/03/19 [facility] History of tooth extraction History of total left hip replacement History of total right hip replacement x2 Status post creation of arteriovenous fistula left upper arm. MWF dialysis. Status post partial resection of colon d/t large polyp Family History Father Family hx of colon cancer Other No family history of adverse response to anesthesia Social History Smoking Status: Never smoker Second Hand Exposure: No; Hx Alcohol Use: No Hx Substance Use: No Preferred Language: Belarusian Communication Ability: Effective Visual Impairment: No Limitations Paper Novelty Maker Required: No Beliefs That Will Affect Care: None marital status: / Current Living Situation: Alone Feels Safe at Home: Yes Assistive Devices: Glasses, Hearing Aid - Left, Hearing Aid - Right and Walker Allergies Allergies Allergy/AdvReac Type Severity Reaction Status Date / Time ketorolac Allergy Intermediate HIVES Verified 09/27/22 19:23 (HOWEVER PATIENT TAKES ASA AT HOME W/O RXN) Home Meds Home Medications Medication Instructions Recorded Confirmed anastrozole 1 mg tablet (Arimidex) 1 mg PO QDD 08/29/18 09/27/22 aspirin 81 mg chewable tablet 81 mg PO HS 08/29/18 09/27/22 levothyroxine 75 mcg tablet 75 mcg PO QAM 08/29/18 09/27/22 (Synthroid) polyethylene glycol 3350 17 gram 17 g PO DAILY PRN Constipation 08/29/18 09/27/22 oral powder packet (Miralax) sertraline 25 mg tablet (Zoloft) 25 mg PO QAM 08/29/18 09/27/22 glucosamine sulfate 500 mg tablet 500 mg PO QDD 12/25/18 09/27/22 (Glucosamine) sevelamer carbonate 800 mg tablet 1,600 mg PO TIDM 12/25/18 09/27/22 (Renvela) vit A 300 mcg-C 200 mg-E 27 1 tab PO DAILY 12/25/18 09/27/22 mg-lutein 2 mg and minerals tablet (Ocuvite with Lutein) fluticasone 250 mcg-salmeterol 50 1 inh inhalation BID 11/24/19 09/27/22 mcg/dose blistr powdr for inhalation (Advair Diskus) ipratropium 20 mcg-albuterol 100 1 puff inhalation QID 11/24/19 09/27/22 mcg/actuation mist for inhalation (Combivent Respimat) omeprazole 20 mg tablet,delayed 20 mg PO QAM 03/03/20 09/27/22 release acetaminophen 325 mg tablet 650 mg PO DIRECTED PRN 09/27/22 09/27/22 (Tylenol) PAIN/FEVER amoxicillin 500 mg capsule 0 mg PO ONCE 09/27/22 09/27/22 calcium carbonate 500 mg calcium 500 mg PO DAILY 09/27/22 09/27/22 (1,250 mg) tablet cinacalcet 30 mg tablet 30 mg PO 3XWK 09/27/22 09/27/22 diltiazem HCl 180 mg 180 mg PO DAILY 09/27/22 09/27/22 capsule,extended release 24 hr rosuvastatin 10 mg tablet 10 mg PO QAM 09/27/22 09/27/22 Results & Data (ED) Vital Signs Vital Signs - 24 hr 09/27/22 18:04 09/27/22 21:17 09/27/22 23:00 Temperature 36.8 C Temperature Source Temporal Artery Scan Pulse Rate 64 Pulse Rate [Right Finger] 86 88 Pulse Rhythm [Right Finger] Regular Pulse Strength [Right Finger] Normal Respiratory Rate 18 18 Respiratory Effort / Characteristics Non-Labored Spontaneous Non-Labored Respiratory Depth Normal Normal Respiratory Pattern Regular Blood Pressure 126/68 Blood Pressure [Right Arm] 175/86 H 178/92 H Blood Pressure Mean 87 Blood Pressure Mean [Right Arm] 115 120 Blood Pressure Position [Right Arm] Lying Lying Pulse Oximetry 98 94 92 Oxygen Delivery Method Room Air Room Air Room Air Sepsis Recent Fever Within 48 Hours No Sepsis New/Unexplained Change in Mental Status No Sepsis Action Taken by Nursing No Action Required Home Medications Current Medication List: was personally reviewed by me Laboratory Data Attestation: I reviewed the patient's lab results. 09/27/22 19:06 09/27/22 19:06 Lab Results 09/27/22 09/27/22 09/27/22 Range/Units 19:06 19:06 21:53 WBC 5.77 (4.8-10.8) K/ul RBC 3.63 L (4.20-5.40) M/uL Hgb 12.0 (12.0-16.0) g/dl Hct 36.3 L (37.0-47.0) % MCV 100.0 (80.0-100.0) fL MCH 33.1 (25.0-34.0) pg MCHC 33.1 (32.0-36.0) g/dL RDW Std Deviation 59.7 H (36.4-46.3) fL RDW Coeff of Derek 15.9 H (11.5-14.5) % Plt Count 137 (130-400) K/uL MPV 10.3 (9.4-12.4) fL Immature Gran % (Auto) 0.2 % Neut % (Auto) 80.4 % Lymph % (Auto) 12.5 % Hamilton % (Auto) 5.0 % Eos % (Auto) 1.7 % Baso % (Auto) 0.2 % Neut # (Auto) 4.64 (1.40-6.50) K/uL Lymph # (Auto) 0.72 L (1.2-3.4) K/uL Hamilton # (Auto) 0.29 (0.11-0.59) K/uL Eos # (Auto) 0.10 (0-0.50) K/uL Baso # (Auto) 0.01 (0-0.2) K/uL Immature Gran # (Auto) 0.01 (0.01-0.20) K/uL Platelet Estimate Normal (Normal) Sodium 141 (136-145) mmol/L Potassium 4.4 (3.5-5.1) mmol/L Chloride 96 L (98-107) mmol/L Carbon Dioxide 36 H (21-32) mmol/L Anion Gap 9 (3-11) BUN 17 (6-23) mg/dl Creatinine 4.45 H (0.6-1.2) mg/dl Est Cr Clr Drug Dosing Not Reportable Est GFR ( Amer) 9.9 ml/min Est GFR (Non-Af Amer) 8.6 ml/min BUN/Creatinine Ratio 3.8 L (10-20) Glucose 98 (70-99(Fasting)) mg/dl Calcium 8.8 (8.5-10.1) mg/dl Total Bilirubin 0.5 (0.2-1.0) mg/dl AST 22 (13-39) U/L ALT 14 (7-52) U/L Alkaline Phosphatase 53 (34-104) U/L Total Protein 7.3 (6.0-8.3) gm/dl Albumin 4.3 (3.4-5.0) gm/dl Globulin 3.0 (2.5-4.0) gm/dl Albumin/Globulin Ratio 1.4 (0.9-2) SARS-CoV-2, RNA, NAAT NEGATIVE (NEGATIVE) Administered Medications Discontinued Medications Dexamethasone Sodium Phosphate (DexamethasonePf 10 Mg/Ml Vial) 6 mg IV NOW ONE Stop: 09/27/22 18:36 Last Admin: 09/27/22 19:20 Dose: 6 mg Documented By: SHAKIRA Cefepime HCl (Maxipime) 2,000 mg in 20 mls @ 5 mls/min IV NOW STA; Protocol Stop: 09/27/22 18:38 Last Admin: 09/27/22 19:21 Dose: 5 mls/min Documented By: SHAKIRA Ioversol (Optiray 350 100ml) 81 ml IV ONCE ONE Stop: 09/27/22 20:40 Last Admin: 09/27/22 20:42 Dose: 81 ml Documented By: HORACIO Imaging Data Radiologist's Impression: Soft Tissue Neck CT 09/27/22 18:35 CT soft tissue neck w con HISTORY: 81 years-old Female left neck mass, hard to swallow acute left-sided pain with dysphasia COMPARISON: None TECHNIQUE: Multiple axial CT images of the neck were obtained following the intravenous administration of 81 mL Optiray. A dose lowering technique was used consistent with the principals of KARLEE. FINDINGS: There is an obstructing 5 mm stone within the distal aspect of the left submandibular duct, image 153. Mild adjacent inflammatory stranding with asymmetric enlargement, heterogeneity and increased enhancement of the left submandibular gland. Subcentimeter left 72 lymph nodes are likely reactive. The right submandibular and bilateral parotid glands are within normal limits. Unremarkable thyroid. Patent airway. Unremarkable glottis and subglottic airway. No pneumothorax. The lung apices are clear. Moderate atherosclerotic plaque of the proximal cervical segment left ICA on image 193 results in at least 50% stenosis. Prior bilateral lens repair. No acute intracranial abnormality identified. Mild polypoid mucosal thickening of the right maxillary sinus. The mastoid air cells are clear. Multilevel degenerative changes of the cervical spine. Left axillary vascular stent graft. IMPRESSION: 1. Acute sialadenitis of the left submandibular gland secondary to an obstructing 5 mm sialolith. 2. Mild reactive lymphadenopathy. ACT 112: Negative or not required by law. The above report was generated using voice recognition software. It may contain grammatical, syntax or spelling errors. Electronically signed by: Sp Gonzalez M.D. 09/27/2022 8:56 PM Discharge Plan Visit Data Chief Complaint: Facial Injury/Pain Stated Complaint: LEFT KNECK PAIN,SWELLING;HURTS TO SWALLOW ED Provider: Camron Bowser Discharge Problem: Trouble swallowing, Neck pain on left side, Sialadenitis Patient Disposition: Admitted As Inpatient Condition: Fair Forms Stand Alone Forms: [facility] Prescriptions Prescriptions: No Action glucosamine sulfate [Glucosamine] 500 mg Tablet 500 mg PO QDD Ocuvite with Lutein 1,000 unit-200 mg-60 unit-2 mg Tablet 1 tab PO DAILY sevelamer carbonate [Renvela] 800 mg Tablet 1,600 mg PO TIDM Rx Instructions: PER EXT MED HX. omeprazole 20 mg Tablet,Delayed Release (Dr/Ec) 20 mg PO QAM anastrozole [Arimidex] 1 mg Tablet 1 mg PO QDD polyethylene glycol 3350 [Miralax] 17 gram Powder In Packet 17 g PO DAILY PRN (Reason: Constipation) levothyroxine [Synthroid] 75 mcg Tablet 75 mcg PO QAM sertraline [Zoloft] 25 mg Tablet 25 mg PO QAM aspirin 81 mg Tablet,Chewable 81 mg PO HS fluticasone propion-salmeterol [Advair Diskus] 250-50 mcg/dose Blister With Device 1 inh INHALATION BID Combivent Respimat 20-100 mcg/actuation mist 1 puff INHALATION QID amoxicillin 500 mg Capsule 0 mg PO ONCE Rx Instructions: PER PT'S DAUGHTER "GAVE HER AN AMOXICILLIN AT 1500". UNSURE OF STRENGTH. acetaminophen [Tylenol] 325 mg Tablet 650 mg PO DIRECTED PRN (Reason: PAIN/FEVER) calcium carbonate [Calcium 500] 500 mg calcium (1,250 mg) Tablet 500 mg PO DAILY rosuvastatin 10 mg tablet 10 mg PO QAM cinacalcet 30 mg Tablet 30 mg PO 3XWK Rx Instructions: SUNDAY, SUNDAY & FRIDAYS diltiazem HCl 180 mg capsule,extended release 24hr 180 mg PO DAILY Rx Instructions: PER EXT MED HX. Referrals Referrals: Sandra Bar MD [Primary Care Provider] -
[2022-09-27 19:23] LABS: Hematocrit (blood only) 36.3 % (37.0-47.0); Mean Corpuscular Hemoglobin 33.1 pg (25.0-34.0); Mean Corpuscular Hgb Conc 33.1 g/dL (32.0-36.0); Mean Platelet Volume 10.3 fL (9.4-12.4); Platelet Count 137 K/uL (130-400); RDW Coefficient of Variation 15.9 % (11.5-14.5); RDW Standard Deviation 59.7 fL (36.4-46.3); Red Blood Count 3.63 M/uL (4.20-5.40); White Blood Count 5.77 K/ul (4.8-10.8)
[2022-09-27 19:39] LABS: Alanine Aminotransferase 14 U/L (7-52); Albumin Globulin Ratio 1.4 (0.9-2); Albumin Level 4.3 gm/dl (3.4-5.0); Alkaline Phosphatase 53 U/L (34-104); Anion Gap 9 (3-11); Aspartate Aminotransferase 22 U/L (13-39); BUN Creatinine Ratio 3.8 (10-20); Bilirubin,Total 0.5 mg/dl (0.2-1.0); Blood Urea Nitrogen 17 mg/dl (6-23); Calcium 8.8 mg/dl (8.5-10.1); Carbon Dioxide 36 mmol/L (21-32); Chloride 96 mmol/L (98-107); Est GFR (African American) 9.9 ml/min; Est GFR (Non-African American) 8.6 ml/min; Glucose 98 mg/dl (70-99(Fasting)); Potassium 4.4 mmol/L (3.5-5.1); Sodium 141 mmol/L (136-145); Total Protein 7.3 gm/dl (6.0-8.3)
[2022-09-27 19:43] LABS: Basophils # (auto) 0.01 K/uL (0-0.2); Basophils % (auto) 0.2 %; Eosinophils % (auto) 1.7 %; Immature Granulocytes # (auto) 0.01 K/uL (0.01-0.20); Immature Granulocytes % (auto) 0.2 %; Lymphocytes # (auto) 0.72 K/uL (1.2-3.4); Lymphocytes % (auto) 12.5 %; Monocytes # (auto) 0.29 K/uL (0.11-0.59); Neutrophils # (auto) 4.64 K/uL (1.40-6.50); Neutrophils % (auto) 80.4 %; Platelet Estimate Normal (Normal)
[2022-09-27] MEDS ORDERED: OPTIRAY 350 100ml IV ONE (20:39)
--- NOTE | 2022-09-27 20:58 | CT Scan Report ---
CT soft tissue neck w con HISTORY: 81 years-old Female left neck mass, hard to swallow acute left-sided pain with dysphasia COMPARISON: None TECHNIQUE: Multiple axial CT images of the neck were obtained following the intravenous administratio n of 81 mL Optiray. A dose lowering technique was used consistent with the principals of KARLEE. FINDINGS: There is an obstructing 5 mm stone within the distal aspect of the left submandibular duct, image 153 . Mild adjacent inflammatory stranding with asymmetric enlargement, heterogeneity and increased enhan cement of the left submandibular gland. Subcentimeter left 72 lymph nodes are likely reactive. The ri ght submandibular and bilateral parotid glands are within normal limits. Unremarkable thyroid. Patent airway. Unremarkable glottis and subglottic airway. No pneumothorax. The lung apices are clear. Moderate atherosclerotic plaque of the proximal cervical segment left ICA on image 193 results in at least 50% stenosis. Prior bilateral lens repair. No acute intracranial abnormality identified. Mild polypoid mucosal thickening of the right maxillary sinus. The mastoid air cells are clear. Multilevel degenerative changes of the cervical spine. Left axillary vascular stent graft. IMPRESSION: 1. Acute sialadenitis of the left submandibular gland secondary to an obstructing 5 mm sialolith. 2. Mild reactive lymphadenopathy. ACT 112: Negative or not required by law. The above report was generated using voice recognition software. It may contain grammatical, syntax o r spelling errors. Electronically signed by: Sp Gonzalez M.D. 09/27/2022 8:56 PM
[2022-09-27] MEDS ORDERED: cloNIDine HCL 0.1 MG TAB PO ONE (23:18)
--- NOTE | 2022-09-28 01:10 | History & Physical Report ---
Date of Service September 28, 2022 Assessment & Plan (1) Sialadenitis: Plan: Patient not septic. hx COPD as per records hypertension, elevated upon arrival at the ER secondary to discomfort hyperlipidemia on statin Rx breast cancer status post surgery ongoing Arimidex Rx ESRD on HD GMF Ancef Clear liquids for now ENT consult Re: Sialodenitis Nephrology consult Re: Dialysis management (MWF) DVT prophylaxis. Heparin subcu Full code Text document was generated using [employer] voice recognition software. It may contain grammatical or spelling errors. Kindly contact undersigned for clarification of any documentation item in question. History of Present Illness Chief Complaint: Neck swelling Primary Care Provider: Sandra Bar MD History obtained from patient and records. History somewhat limited by patient's marked hearing impairment. History obtained from patient and records. Medical history significant for hypertension, hyperlipidemia, COPD as per records, breast cancer status post surgery ongoing Arimidex Rx, ESRD on HD Last confinement March 2020 right distal radius ulna fracture status post surgery. Few days history of sore throat symptoms. Painful left submandibular swelling. No fever, no chills. No chest pain, no SOB. Patient brought to the ER for evaluation. IV cefepime administered at the ER. 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 Allergies Allergy/AdvReac Type Severity Reaction Status Date / Time ketorolac Allergy Intermediate HIVES Verified 09/27/22 19:23 (HOWEVER PATIENT TAKES ASA AT HOME W/O RXN) Home Medications Medication Instructions Recorded Confirmed Type anastrozole 1 mg tablet (Arimidex) 1 mg PO QDD 08/29/18 09/27/22 History aspirin 81 mg chewable tablet 81 mg PO HS 08/29/18 09/27/22 History levothyroxine 75 mcg tablet 75 mcg PO QAM 08/29/18 09/27/22 History (Synthroid) polyethylene glycol 3350 17 gram 17 g PO DAILY PRN Constipation 08/29/18 09/27/22 History oral powder packet (Miralax) sertraline 25 mg tablet (Zoloft) 25 mg PO QAM 08/29/18 09/27/22 History glucosamine sulfate 500 mg tablet 500 mg PO QDD 12/25/18 09/27/22 History (Glucosamine) sevelamer carbonate 800 mg tablet 1,600 mg PO TIDM 12/25/18 09/27/22 History (Renvela) vit A 300 mcg-C 200 mg-E 27 1 tab PO DAILY 12/25/18 09/27/22 History mg-lutein 2 mg and minerals tablet (Ocuvite with Lutein) fluticasone 250 mcg-salmeterol 50 1 inh inhalation BID 11/24/19 09/27/22 History mcg/dose blistr powdr for inhalation (Advair Diskus) ipratropium 20 mcg-albuterol 100 1 puff inhalation QID 11/24/19 09/27/22 History mcg/actuation mist for inhalation (Combivent Respimat) omeprazole 20 mg tablet,delayed 20 mg PO QAM 03/03/20 09/27/22 History release acetaminophen 325 mg tablet 650 mg PO DIRECTED PRN 09/27/22 09/27/22 History (Tylenol) PAIN/FEVER amoxicillin 500 mg capsule 0 mg PO ONCE 09/27/22 09/27/22 History calcium carbonate 500 mg calcium 500 mg PO DAILY 09/27/22 09/27/22 History (1,250 mg) tablet cinacalcet 30 mg tablet 30 mg PO 3XWK 09/27/22 09/27/22 History diltiazem HCl 180 mg 180 mg PO DAILY 09/27/22 09/27/22 History capsule,extended release 24 hr rosuvastatin 10 mg tablet 10 mg PO QAM 09/27/22 09/27/22 History Past Med/Surg History Medical History (Updated 09/27/22 @ 23:27 by Camron Bowser MD) Anemia Breast cancer left diagnosed in 2006/right in 2017--sx, radiation Chronic depression Chronic low back pain End stage renal disease on dialysis sun- - [facility] GERD (gastroesophageal reflux disease) Hearing deficit History of colon polyps HTN (hypertension) Hyperlipidemia Hypothyroidism Secondary hyperparathyroidism (05/27/12) Surgical History History of bilateral cataract extraction History of colonoscopy History of dilatation and curettage History of ear surgery right History of esophagogastroduodenoscopy (EGD) History of eye surgery right eye after cataract History of left breast biopsy malignant History of lumpectomy of left breast History of lumpectomy of right breast History of right breast biopsy History of surgery removal of perm cath 07/03/19 [facility] History of tooth extraction History of total left hip replacement History of total right hip replacement x2 Status post creation of arteriovenous fistula left upper arm. MWF dialysis. Status post partial resection of colon d/t large polyp Family History Father Family hx of colon cancer Other No family history of adverse response to anesthesia Social History Smoking Status: Never smoker Second Hand Exposure: No; Hx Alcohol Use: No Hx Substance Use: No Preferred Language: Russian Communication Ability: Effective Visual Impairment: No Limitations Certified Personal Finance Counselor Required: No Beliefs That Will Affect Care: None marital status: / Current Living Situation: Alone Feels Safe at Home: Yes Assistive Devices: Glasses, Hearing Aid - Left, Hearing Aid - Right and Walker Review of Systems Review of Systems: Could not be reliably obtained secondary to hearing impairment Physical Exam Physical Exam: GENERAL: Slightly uncomfortable, very hard of hearing, obese, no respiratory distress SKIN: Pallor, warm HEENT: Bespectacled, pale palpebral conjunctivae, no ptosis, dry buccal mucosa NECK : Supple, short neck, tender left submandibular area CHEST : Decreased breath sounds , no tenderness HEART : RRR, no obvious murmurs ABDOMEN: Some distention, nontender EXTREMITIES : Minimal LE swelling, no LE tenderness, no other conspicuous deformities noted NEUROLOGIC : Coherent, no facial asymmetry, marked hearing impairment, no other gross focality Results & Data Results & Data ([facility]) Vital Signs (Past 12 Hours) Vital Signs Temp Pulse Pulse Resp BP BP Pulse Ox 09/27/22 23:00 88 18 178/92 H 92 09/27/22 21:17 86 175/86 H 94 09/27/22 18:04 36.8 C 64 18 126/68 98 O2 Del Method 09/27/22 23:00 Room Air 09/27/22 21:17 Room Air 09/27/22 18:04 Room Air Laboratory Results Laboratory Results WBC 5.77 K/ul (4.8-10.8) 09/27/22 19:06 RBC 3.63 M/uL (4.20-5.40) L 09/27/22 19:06 Hgb 12.0 g/dl (12.0-16.0) 09/27/22 19:06 Hct 36.3 % (37.0-47.0) L 09/27/22 19:06 MCV 100.0 fL (80.0-100.0) 09/27/22 19:06 MCH 33.1 pg (25.0-34.0) 09/27/22 19:06 MCHC 33.1 g/dL (32.0-36.0) 09/27/22 19:06 RDW Std Deviation 59.7 fL (36.4-46.3) H 09/27/22 19:06 RDW Coeff of Derek 15.9 % (11.5-14.5) H 09/27/22 19:06 Plt Count 137 K/uL (130-400) 09/27/22 19:06 MPV 10.3 fL (9.4-12.4) 09/27/22 19:06 Immature Gran % (Auto) 0.2 % 09/27/22 19:06 Neut % (Auto) 80.4 % 09/27/22 19:06 Lymph % (Auto) 12.5 % 09/27/22 19:06 [place] % (Auto) 5.0 % 09/27/22 19:06 Eos % (Auto) 1.7 % 09/27/22 19:06 Baso % (Auto) 0.2 % 09/27/22 19:06 Neut # (Auto) 4.64 K/uL (1.40-6.50) 09/27/22 19:06 Lymph # (Auto) 0.72 K/uL (1.2-3.4) L 09/27/22 19:06 [place] # (Auto) 0.29 K/uL (0.11-0.59) 09/27/22 19:06 Eos # (Auto) 0.10 K/uL (0-0.50) 09/27/22 19:06 Baso # (Auto) 0.01 K/uL (0-0.2) 09/27/22 19:06 Immature Gran # (Auto) 0.01 K/uL (0.01-0.20) 09/27/22 19:06 Platelet Estimate Normal (Normal) 09/27/22 19:06 Sodium 141 mmol/L (136-145) 09/27/22 19:06 Potassium 4.4 mmol/L (3.5-5.1) 09/27/22 19:06 Chloride 96 mmol/L (98-107) L 09/27/22 19:06 Carbon Dioxide 36 mmol/L (21-32) H 09/27/22 19:06 Anion Gap 9 (3-11) 09/27/22 19:06 BUN 17 mg/dl (6-23) 09/27/22 19:06 Creatinine 4.45 mg/dl (0.6-1.2) H 09/27/22 19:06 Est Cr Clr Drug Dosing Not Reportable 09/27/22 19:06 Est GFR ( Amer) 9.9 ml/min 09/27/22 19:06 Est GFR (Non-Af Amer) 8.6 ml/min 09/27/22 19:06 BUN/Creatinine Ratio 3.8 (10-20) L 09/27/22 19:06 Glucose 98 mg/dl (70-99(Fasting)) 09/27/22 19:06 Calcium 8.8 mg/dl (8.5-10.1) 09/27/22 19:06 Total Bilirubin 0.5 mg/dl (0.2-1.0) 09/27/22 19:06 AST 22 U/L (13-39) 09/27/22 19:06 ALT 14 U/L (7-52) 09/27/22 19:06 Alkaline Phosphatase 53 U/L (34-104) 09/27/22 19:06 Total Protein 7.3 gm/dl (6.0-8.3) 09/27/22 19:06 Albumin 4.3 gm/dl (3.4-5.0) 09/27/22 19:06 Globulin 3.0 gm/dl (2.5-4.0) 09/27/22 19:06 Albumin/Globulin Ratio 1.4 (0.9-2) 09/27/22 19:06 SARS-CoV-2, RNA, NAAT NEGATIVE (NEGATIVE) 09/27/22 21:53 Impressions Soft Tissue Neck CT 09/27/22 18:35 CT soft tissue neck w con HISTORY: 81 years-old Female left neck mass, hard to swallow acute left-sided pain with dysphasia COMPARISON: None TECHNIQUE: Multiple axial CT images of the neck were obtained following the intravenous administration of 81 mL Optiray. A dose lowering technique was used consistent with the principals of KARLEE. FINDINGS: There is an obstructing 5 mm stone within the distal aspect of the left submandibular duct, image 153. Mild adjacent inflammatory stranding with asymmetric enlargement, heterogeneity and increased enhancement of the left submandibular gland. Subcentimeter left 72 lymph nodes are likely reactive. The right submandibular and bilateral parotid glands are within normal limits. Unremarkable thyroid. Patent airway. Unremarkable glottis and subglottic airway. No pneumothorax. The lung apices are clear. Moderate atherosclerotic plaque of the proximal cervical segment left ICA on image 193 results in at least 50% stenosis. Prior bilateral lens repair. No acute intracranial abnormality identified. Mild polypoid mucosal thickening of the right maxillary sinus. The mastoid air cells are clear. Multilevel degenerative changes of the cervical spine. Left axillary vascular stent graft. IMPRESSION: 1. Acute sialadenitis of the left submandibular gland secondary to an obstructing 5 mm sialolith. 2. Mild reactive lymphadenopathy. ACT 112: Negative or not required by law. The above report was generated using voice recognition software. It may contain grammatical, syntax or spelling errors. Electronically signed by: Sp Gonzalez M.D. 09/27/2022 8:56 PM Diagnostic Findings Chest x-ray as per my interpretation cardiomegaly EKG as per my interpretation :
[2022-09-28] MEDS ORDERED: ACETAMINOPHEN 325 MG TAB PO PRN (03:50)
[2022-09-28] MEDS ORDERED: HYDROmorphone INJ 0.5 MG/0.5 ML SYR IV PRN (03:50)
[2022-09-28] MEDS ORDERED: oxyCODONE HCL IR 5 MG TAB (IMMEDIATE RELEASE) PO PRN (03:50)
[2022-09-28] MEDS ORDERED: PROMETHAZINE HCL 12.5 MG in SODIUM CHLORIDE 0.9% 50 ML IV PRN (03:50)
[2022-09-28] MEDS ORDERED: POLYETHYLENE (MIRALAX) 17 GM PACK PO PRN (03:50)
[2022-09-28] MEDS ORDERED: ceFAZolin 1000MG 1,000 MG/7.5 ML SYR IV SCH (04:00)
[2022-09-28] MEDS ORDERED: ASPIRIN 81 MG CHEW PO STA (04:05)
[2022-09-28 04:51] LABS: Hemoglobin 11.4 g/dl (12.0-16.0); Mean Corpuscular Hemoglobin 32.9 pg (25.0-34.0); Mean Corpuscular Hgb Conc 33.5 g/dL (32.0-36.0); Mean Platelet Volume 10.9 fL (9.4-12.4); Platelet Count 158 K/uL (130-400); RDW Coefficient of Variation 15.8 % (11.5-14.5); RDW Standard Deviation 56.5 fL (36.4-46.3); Red Blood Count 3.47 M/uL (4.20-5.40); White Blood Count 5.84 K/ul (4.8-10.8)
[2022-09-28 04:52] LABS: Anion Gap 8 (3-11); BUN Creatinine Ratio 4.5 (10-20); Blood Urea Nitrogen 24 mg/dl (6-23); Calcium 7.9 mg/dl (8.5-10.1); Carbon Dioxide 32 mmol/L (21-32); Chloride 97 mmol/L (98-107); Est GFR (Non-African American) 6.9 ml/min; Glucose 139 mg/dl (70-99(Fasting)); Sodium 137 mmol/L (136-145)
[2022-09-28] MEDS: HEPARIN SOD 5,000 UNIT/0.5 ML VIAL SQ SCH ×2 (05:50→14:27)
[2022-09-28 05:51] LABS: Immature Granulocytes # (auto) 0.03 K/uL (0.01-0.20); Immature Granulocytes % (auto) 0.5 %; Lymphocytes # (auto) 0.37 K/uL (1.2-3.4); Lymphocytes % (auto) 6.3 %; Monocytes # (auto) 0.14 K/uL (0.11-0.59); Monocytes % (auto) 2.4 %; Neutrophils % (auto) 90.8 %; RBC Morphology Unremarkable
[2022-09-28] MEDS ORDERED: LEVOTHYROXINE SODIUM 75 MCG TABLET PO SCH (06:30)
[2022-09-28] MEDS ORDERED: Ipratropium HFA Inhaler (Combivent Respimat P&T Subs) INH SCH (07:00)
[2022-09-28] MEDS ORDERED: Albuterol HFA 8 GM Inhaler (Combivent Respimat P&T Subs) INH SCH (07:00)
[2022-09-28] MEDS: SEVELAMER HCL 800 MG TABLET PO SCH ×2 (08:23→13:07)
[2022-09-28] MEDS ORDERED: CALCIUM CARBONATE 500 MG CHEWABLE TAB PO SCH (09:00)
[2022-09-28] MEDS ORDERED: CEROVITE ADV FORMULA TAB PO SCH (09:00)
[2022-09-28] MEDS ORDERED: FLUTICASONE/VILANTEROL 200/25MCG 14 PUFFS/INHALER INH SCH (09:00)
[2022-09-28] MEDS ORDERED: FLUTICASONE/SALMETEROL 250/50 (ADVAIR) 14 PUFF/1 INHALER INH SCH (09:00)
[2022-09-28] MEDS ORDERED: IPRATROPIUM BROMIDE/ALBUTEROL respimat INH INH SCH (09:00)
[2022-09-28] MEDS ORDERED: ROSUVASTATIN CALCIUM 10 MG TAB PO SCH (09:00)
[2022-09-28] MEDS ORDERED: dilTIAZem HCL 180 MG CAPCR PO SCH (09:00)
[2022-09-28] MEDS ORDERED: PANTOprazole 40 MG TAB PO SCH (09:00)
[2022-09-28] MEDS ORDERED: SERTRALINE HCL 50 MG TABLET PO SCH (09:00)
--- NOTE | 2022-09-28 09:59 | XRay Report ---
XR chest 1V portable CLINICAL HISTORY: Renal failure. COMPARISON STUDY: Chest radiograph March 04, 2020. FINDINGS: Left axillary/upper extremity vascular stents are partially imaged. There is no pneumothora x or pleural effusion. Cardiomegaly is unchanged. No consolidation is identified. There is no evidenc e for pulmonary edema. There has been no significant change in appearance of the chest. All right rib fractures are incidentally noted. IMPRESSION: No acute cardiopulmonary findings. ACT 112: Negative or not required by law. Electronically signed by: Obey Spear M.D. 09/28/2022 8:45 AM
--- NOTE | 2022-09-28 10:24 | Nephrology Consultation ---
Date of Consultation September 28, 2022 Assessment & Plan (1) ESRD (end stage renal disease) on dialysis: (2) Anemia: (3) HTN (hypertension): (4) Secondary hyperparathyroidism: (5) Sialadenitis: Plan 81-year-old female with end-stage renal disease, on hemodialysis Sunday, Sunday, Sunday, had full dialysis treatment yesterday. Currently blood pressure, volume status, electrolyte acceptable. Presented to ER yesterday with neck pain and swallowing difficulty and found to have sialoadenitis with a 5 mm left submandibular gland stone. Started on empiric antibiotic and analgesic with slight improvement. Waiting on ENT evaluation. Overall clinically stable. Blood pressure, volume status, electrolyte acceptable. Hb >11 -- Will keep on her regular schedule for dialysis tomorrow, inpatient if stays overnight -- continue Sensipar, Renvela -- left arm nephrology precaution, avoid IV fluid, dose medications for EGFR less than 10. Will follow. Thank you for allowing me to participate in your patient's care. It was a pleasure to see Latisha. History of Present Illness Reason for Consultation: ESRD on HD Attending Physician: Deisy Hughes DO History of Present Illness Ms. Latisha Amato is a 81 year old female with ESRD on HD presented to [place] ER with acute sialadenitis. Nephrology consult was requested to manage hemodialysis while inpatient. EMR records are reviewed in detail during patient's visit. She was seen with her daughter Mery Amato ([employer]) at bedside. Latisha presented to ER yesterday evening with 3 days h/o pain along the left neck with some swelling which worsened and became pain more pain food yesterday evening with dysphagia and change in her voice. CT of neck on admission showed left-sided sialadenitis with 5 mm submandibular gland stone. She was started on Cefazolin and currently waiting for ENT evaluation. She reports slight improvement in pain since presentation. Lab showed normal electrolytes. Vital signs are stable, afebrile. Latisha has ESRD on IHD MWF at [facility]. ESRD has been attributed to microvascular disease, on IHD since 09/2012. She had a LUE AVG placed by Dr. Shannon 10/16. This failed and Ms. Amato now has functioning left brachiocephalic AV fistula. She had dialysis yesterday as her regular schedule and had full treatment. Generally her blood pressure runs low during dialysis but she stays asymptomatic. PMH also significant for anemia, COPD, macular degeneration, OA, breast CA s/p lumpectomy 10/20 C / rad tx, hypothyroidism, depression. nonsmoker. Allergies Allergy/AdvReac Type Severity Reaction Status Date / Time ketorolac Allergy Intermediate HIVES Verified 09/27/22 19:23 (HOWEVER PATIENT TAKES ASA AT HOME W/O RXN) Home Medications Medication Instructions Recorded Confirmed Type anastrozole 1 mg tablet (Arimidex) 1 mg PO QDD 08/29/18 09/27/22 History aspirin 81 mg chewable tablet 81 mg PO HS 08/29/18 09/27/22 History levothyroxine 75 mcg tablet 75 mcg PO QAM 08/29/18 09/27/22 History (Synthroid) polyethylene glycol 3350 17 gram 17 g PO DAILY PRN Constipation 08/29/18 09/27/22 History oral powder packet (Miralax) sertraline 25 mg tablet (Zoloft) 25 mg PO QAM 08/29/18 09/27/22 History glucosamine sulfate 500 mg tablet 500 mg PO QDD 12/25/18 09/27/22 History (Glucosamine) sevelamer carbonate 800 mg tablet 1,600 mg PO TIDM 12/25/18 09/27/22 History (Renvela) vit A 300 mcg-C 200 mg-E 27 1 tab PO DAILY 12/25/18 09/27/22 History mg-lutein 2 mg and minerals tablet (Ocuvite with Lutein) fluticasone 250 mcg-salmeterol 50 1 inh inhalation BID 11/24/19 09/27/22 History mcg/dose blistr powdr for inhalation (Advair Diskus) ipratropium 20 mcg-albuterol 100 1 puff inhalation QID 11/24/19 09/27/22 History mcg/actuation mist for inhalation (Combivent Respimat) omeprazole 20 mg tablet,delayed 20 mg PO QAM 03/03/20 09/27/22 History release acetaminophen 325 mg tablet 650 mg PO DIRECTED PRN 09/27/22 09/27/22 History (Tylenol) PAIN/FEVER amoxicillin 500 mg capsule 0 mg PO ONCE 09/27/22 09/27/22 History calcium carbonate 500 mg calcium 500 mg PO DAILY 09/27/22 09/27/22 History (1,250 mg) tablet cinacalcet 30 mg tablet 30 mg PO 3XWK 09/27/22 09/27/22 History diltiazem HCl 180 mg 180 mg PO DAILY 09/27/22 09/27/22 History capsule,extended release 24 hr rosuvastatin 10 mg tablet 10 mg PO QAM 09/27/22 09/27/22 History Patient History Medical History (Updated 09/27/22 @ 23:27 by Camron Bowser MD) Anemia Breast cancer left diagnosed in 2006/right in 2017--sx, radiation Chronic depression Chronic low back pain End stage renal disease on dialysis sun-sun-sun - [facility] GERD (gastroesophageal reflux disease) Hearing deficit History of colon polyps HTN (hypertension) Hyperlipidemia Hypothyroidism Secondary hyperparathyroidism (05/27/12) Surgical History History of bilateral cataract extraction History of colonoscopy History of dilatation and curettage History of ear surgery right History of esophagogastroduodenoscopy (EGD) History of eye surgery right eye after cataract History of left breast biopsy malignant History of lumpectomy of left breast History of lumpectomy of right breast History of right breast biopsy History of surgery removal of perm cath 07/03/19 [facility] History of tooth extraction History of total left hip replacement History of total right hip replacement x2 Status post creation of arteriovenous fistula left upper arm. MWF dialysis. Status post partial resection of colon d/t large polyp Family History Father Family hx of colon cancer Other No family history of adverse response to anesthesia Social History Smoking Status: Never smoker Second Hand Exposure: No; Hx Alcohol Use: No Hx Substance Use: No Preferred Language: Kazakh Communication Ability: Effective Visual Impairment: No Limitations Afternoon Babysitter Required: No Beliefs That Will Affect Care: None marital status: / Current Living Situation: Alone Feels Safe at Home: Yes Assistive Devices: Glasses, Hearing Aid - Left, Hearing Aid - Right and Walker Review of Systems Review of Systems: Detailed review of system was done and pertinent positives or negatives were mentioned above. Physical Exam Constitutional: WD/WN, vitals as above no acute distress Eyes: + anicteric sclerae ENMT: Ears: no hearing impairment Neck: normal visual inspection left submandibular area farm with swelling, mild tenderness. Respiratory: Auscultation: lungs clear to auscultation bilaterally Cardiovascular: Rate/Rhythm: regular rate and regular rhythm Heart Sounds: normal S1 and normal S2 Extremities: no edema Skin: no rashes Neurologic: no focal motor deficits Psychiatric: Orientation: alert and oriented x 3 Results & Data ([facility]) Vital Signs (Past 12 Hours) Vital Signs Pulse Resp BP Pulse Ox O2 Del Method O2 Flow Rate 09/28/22 07:15 83 16 96 Room Air 09/28/22 04:00 80 18 151/88 H 93 Room Air 09/28/22 03:00 86 18 157/77 H 94 Nasal Cannula 2 09/28/22 01:00 82 18 150/75 H 96 Nasal Cannula 2 09/27/22 23:00 88 18 178/92 H 92 Room Air PG Care Time/CCT Total # of Minutes Spent Total Time Spent with Patient: Total time spent is greater than 50% in coordination of care (as documented) at patient's floor/unit and/or counseling patient: Coding Level of Care Code 90587 INT INP/OBS CARE 3/75MIN Diagnoses ESRD (end stage renal disease) on dialysis N18.6; Z99.2 Anemia D64.9 HTN (hypertension) I10 Secondary hyperparathyroidism N25.81 Sialadenitis K11.20
--- NOTE | 2022-09-28 15:54 | Discharge Summary ---
Discharge Summary Date of Service September 28, 2022 Notes For Next Care Provider needs ENT followup Medication Changes From Visit see attached med rec Admission HPI Per Admitting Provider History obtained from patient and records. History somewhat limited by patient's marked hearing impairment. History obtained from patient and records. Medical history significant for hypertension, hyperlipidemia, COPD as per records, breast cancer status post surgery ongoing Arimidex Rx, ESRD on HD Last confinement March 2020 right distal radius ulna fracture status post surgery. Few days history of sore throat symptoms. Painful left submandibular swelling. No fever, no chills. No chest pain, no SOB. Patient brought to the ER for evaluation. IV cefepime administered at the ER. 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 She presented without any evidence of sepsis and had been referred from urgent care. Speech was garbled because of pain with speaking. She had been intolerant of p.o. as a result of pain, also. There was a notable change in her voice on admission which resolved to normal. She had no shortness of breath no fevers no chills and no vomiting. On exam she had no TMJ pain on the left, no overt dental caries or other dental issue and she had a significant reactive lymphadenopathy in the submandibular region on the left. Lymph nodes were tender to palpation. Work-up included a CT of the neck soft tissues revealing acute sialoadenitis of the left submandibular gland secondary to an obstructing 5 mm sialolith. On arrival to the ER she received cefepime 2 g IV as well as Decadron 6 mg IV. Approximately 12 hours later she was improved and was able to tolerate a liquid diet. Her speech was normal and there was no evidence of facial cellulitis or other infection at this point. The case was peripherally discussed with ENT at [facility] who recommended a short course of steroids and a 10-day course of Augmentin. This was prescribed at discharge and she was discharged in stable condition with close primary care follow-up recommended. I did contact the ENT office locally at [facility] and attempted to coordinate a follow-up appointment with ENT prior to discharge. We will send discharge summary and ENT coordinator will be touching base with the patient tomorrow regarding a follow-up in case any further interventions are needed on this sialolith. The patient was encouraged to hydrate orally and suck on hard sour candies to encourage salivation. She verbalized understanding with intent to comply. Discharge Exam CONSTITUTIONAL: WNWD, vitals as above, generally well-appearing EYES: normal conjunctivae, no scleral icterus ENT: external ear and nose normal, oropharynx clear, normal dentition. No TMJ pain or pain with opening or closing her jaw. Pain is submandibular region only and there is significant left submandibular LAD with tenderness to palpation. No superficial erythema of the skin and no significant swelling of the left face is present. NECK: trachea midline RESPIRATORY: clear to auscultation bilaterally, no crackles, rales or wheezes, normal respiratory effort CARDIOVASCULAR: regular rate and rhythm, S1 and 2 heard without murmurs, gallops or rubs, no JVD, no peripheral edema CHEST: inspection of chest was normal GASTROINTESTINAL: soft, nontender, ND, no guarding MUSCULOSKELETAL: strength 5/5 throughout, head is normocephalic and atraumatic SKIN: warm and dry NEUROLOGIC: CN 2-12 grossly intact, no sensory deficit, normal cognition, normal speech, no tremor PSYCHIATRIC: alert cooperative and oriented to person, place and time. Euthymic mood, makes good eye contact, language grossly intact, recent and remote memory grossly intact. Updated Medication List Medication Instructions Recorded Confirmed Type anastrozole 1 mg tablet (Arimidex) 1 mg PO QDD 08/29/18 09/27/22 History aspirin 81 mg chewable tablet 81 mg PO HS 08/29/18 09/27/22 History levothyroxine 75 mcg tablet 75 mcg PO QAM 08/29/18 09/27/22 History (Synthroid) polyethylene glycol 3350 17 gram 17 g PO DAILY PRN Constipation 08/29/18 09/27/22 History oral powder packet (Miralax) sertraline 25 mg tablet (Zoloft) 25 mg PO QAM 08/29/18 09/27/22 History glucosamine sulfate 500 mg tablet 500 mg PO QDD 12/25/18 09/27/22 History (Glucosamine) sevelamer carbonate 800 mg tablet 1,600 mg PO TIDM 12/25/18 09/27/22 History (Renvela) vit A 300 mcg-C 200 mg-E 27 1 tab PO DAILY 12/25/18 09/27/22 History mg-lutein 2 mg and minerals tablet (Ocuvite with Lutein) fluticasone 250 mcg-salmeterol 50 1 inh inhalation BID 11/24/19 09/27/22 History mcg/dose blistr powdr for inhalation (Advair Diskus) ipratropium 20 mcg-albuterol 100 1 puff inhalation QID 11/24/19 09/27/22 History mcg/actuation mist for inhalation (Combivent Respimat) omeprazole 20 mg tablet,delayed 20 mg PO QAM 03/03/20 09/27/22 History release acetaminophen 325 mg tablet 650 mg PO DIRECTED PRN 09/27/22 09/27/22 History (Tylenol) PAIN/FEVER amoxicillin 500 mg capsule 0 mg PO ONCE 09/27/22 09/27/22 History calcium carbonate 500 mg calcium 500 mg PO DAILY 09/27/22 09/27/22 History (1,250 mg) tablet cinacalcet 30 mg tablet 30 mg PO 3XWK 09/27/22 09/27/22 History diltiazem HCl 180 mg 180 mg PO DAILY 09/27/22 09/27/22 History capsule,extended release 24 hr rosuvastatin 10 mg tablet 10 mg PO QAM 09/27/22 09/27/22 History amoxicillin 500 mg-potassium 1 tab PO DAILY #5 tabs 09/28/22 Rx clavulanate 125 mg tablet (Augmentin) prednisone 20 mg tablet 40 mg PO DAILY #10 tabs 09/28/22 Rx Hospital Stay Data Consultations 09/27/22 21:30 ED Decision to Admit Stat 09/28/22 01:20 Consult Otolaryngology (Head and Neck) Routine 09/28/22 03:50 Consult Nephrology Routine Diagnostic Imagining Performed 09/27/22 18:35 CT soft tissue neck w con Stat Pending Results Patient Have Any Pending Studies at Discharge: No Discharge Instructions Given to Patient (Per Discharging Provider) Ms Amato, Esteban were admitted to the hospital and found to have a salivary stone blocking one of the salivary ducts. This has caused lymph node swelling in your left neck that is tender. Please stay hydrated and utilize sour hard candies to improve the flow through t he salivary duct. Please take all medications as instructed on discharge list below. You are being placed on Augmentin (an antibiotic) and prednisone (a steroid) to help with gland inflammation and pain. Please take the Augmentin MWF after dialysis until finished. It is important to followup with your primary care provider next week at the date and time listed as a general follow-up from this hospital stay and to ensure you are feeling well since discharge and are tolerating the medications without issue. Also, someone from the [facility] ENT office will contact you tomorr ow regarding a date and time for follow-up with one of the ENT specialists in case the stone is still present and further treatments need to be explored. It was a pleasure taking care of you! Please call if you have any questions or problems. You can reach a [facility] hospitalist on duty at [facility] 24 hours a day by calling [phone]. Take care of yourself. Deisy Hughes, DO [facility] Hospitalist Total Time Total Time Spent Total Time Spent (In Minutes): 60
[2022-09-28] MEDS ORDERED: ANASTROZOLE 1 MG TAB PO SCH (16:30)
[2022-09-28] MEDS ORDERED: ALBUTEROL HFA 8 GM INHALER INH SCH (19:00)
[2022-09-28] MEDS ORDERED: IPRATROPIUM BROMIDE HFA INHALER INH SCH (19:00)
[2022-09-28] MEDS ORDERED: ASPIRIN 81 MG CHEW PO SCH (21:00)
[2022-09-29] MEDS ORDERED: CINACALCET HCL 30 MG TAB PO SCH (09:00)
== END 2022-09-28 16:30 | disposition home or self-care (01) | DRG 154 ==
LOC: ED 17:57 → EDINP 09-28 01:18
DX: I12.0 Hypertensive chronic kidney disease with stage 5 chronic kidney disease or end stage renal disease; E03.9 Hypothyroidism, unspecified; N25.81 Secondary hyperparathyroidism of renal origin; Z96.643 Presence of artificial hip joint, bilateral; Z79.82 Long term (current) use of aspirin; E78.5 Hyperlipidemia, unspecified; K11.20 Sialoadenitis, unspecified; K21.9 Gastro-esophageal reflux disease without esophagitis; N18.6 End stage renal disease; J44.9 Chronic obstructive pulmonary disease, unspecified; Z79.890 Hormone replacement therapy; K11.5 Sialolithiasis; Z99.2 Dependence on renal dialysis; D64.9 Anemia, unspecified; Z85.3 Personal history of malignant neoplasm of breast